=== PATIENT | male | born 1950 | race Hispanic/Latino ===

== ENCOUNTER 2016-09-03 14:33 | Inpatient (IN) | payer MEDICARE ==
--- NOTE | 2016-09-03 14:55 | ED PDOC ---
Arrival/HPI - General Chief Complaint: Pain, Chronic Time Seen by Provider: 09/03/16 14:47 - History of Present Illness Narrative History of Present Illness (Text): 09/03/16 15:43 66 y/o M w/ PMHx of venous stasis and HTN presents to the ED c/o B/L LE pain. Pt is currently being treated by Dr. Rahman for B/L venous stasis and cellulitis; however, pt was unable to make his last appointment on 08/28/16. Pt was last seen on 08/21/16. At that visit legs were wrapped and compression stockings were applied. Pt has not changed the dressings or stockings since placement. Pt admits to taking Tylenol 1300mg x2 with no relief. Pt has a prescription for Tramadol but is almost out of medication. Pt admits to some worsening LE numbness, erythema, and swelling. Pt denies F/C, CP, SOB, N/V, D/C. (Akosua De Luna) Past Medical History - Provider Review Nursing Documentation Reviewed: Yes - Infectious Disease Hx of Infectious Diseases: None - Tetanus Immunization Tetanus Immunization: Unknown - Cardiac Hx Cardiac Disorders: Yes Hx Hypertension: Yes - Pulmonary Hx Respiratory Disorders: No - Neurological Hx Neurological Disorder: No - HEENT Hx HEENT Disorder: No - Renal Hx Renal Disorder: No - Endocrine/Metabolic Hx Endocrine Disorders: No - Hematological/Oncological Hx Blood Disorders: No - Integumentary Hx Basal Cell Carcinoma: Yes (on his back) Other/Comment: actinic keratosis - Musculoskeletal/Rheumatological Hx Musculoskeletal Disorders: Yes Hx Arthritis: Yes Hx Falls: No - Gastrointestinal Hx Gastrointestinal Disorders: No - Genitourinary/Gynecological Hx Genitourinary Disorders: No - Psychiatric Hx Psychophysiologic Disorder: No Hx Substance Use: No - Anesthesia Hx Anesthesia: No Hx Anesthesia Reactions: No Hx Malignant Hyperthermia: No Family/Social History - Physician Review Nursing Documentation Reviewed: Yes Family/Social History: No Known Family HX Smoking Status: Former Smoker Hx Alcohol Use: No Hx Substance Use: No Allergies/Home Meds Allergies/Adverse Reactions: Allergies No Known Allergies Allergy (Verified 09/03/16 14:42) Home Medications: Home Meds Medication Instructions Recorded Confirmed Potassium Chloride [Klor-Con] 1 tab PO DAILY 03/24/15 09/03/16 Torsemide [Demadex] 20 mg PO DAILY 03/24/15 09/03/16 Tramadol Hydrochloride [Tramadol] 1 tab PO PRN PRN 03/24/15 09/03/16 Review of Systems - Physician Review All systems were reviewed & negative as marked: Yes Physical Exam Vital Signs Reviewed: Yes Temperature: Afebrile Blood Pressure: Normal Pulse: Regular Respiratory Rate: Normal Appearance: Positive for: Non-Toxic, Comfortable Pain Distress: Mild Mental Status: Positive for: Alert and Oriented X 3 - Systems Exam Head: Present: Atraumatic, Normocephalic Pupils: Present: PERRL Extroacular Muscles: Present: EOMI Conjunctiva: Present: Normal Mouth: Present: Moist Mucous Membranes Respiratory/Chest: Present: Clear to Auscultation, Good Air Exchange. No: Respiratory Distress, Accessory Muscle Use Cardiovascular: Present: Regular Rate and Rhythm, Normal S1, S2. No: Murmurs Abdomen: Present: Normal Bowel Sounds. No: Tenderness, Distention, Peritoneal Signs Upper Extremity: Present: Normal Inspection Lower Extremity: Present: Edema (2+ pitting edema RLE), Other (venous stasis B/ L w/ ulcerations on B/L medial and lateral maleoli and shins.) Neurological: Present: GCS=15, Speech Normal Skin: Present: Warm, Dry Psychiatric: Present: Alert, Oriented x 3, Normal Affect, Normal Mood Vital Signs Temp Pulse Resp BP Pulse Ox 09/03/16 14:46 98.2 F 88 19 139/79 97 Medical Decision Making - RAD Interpretation Coating Line Worker: Radiologist (Venous doppler negative for DVT) ED Course and Treatment: Patient seen and examined with resident Came up with treatment and disposition plan with resident (Musa Torres) 09/03/16 15:51 66 y/o M w/ venous stasis and cellulitis - Morphine - Vancomycin - Labs - Blood Cx - RLE venous doppler - reassess and dispo 09/03/16 17:05 LE dressings changed Pain improved. Pt down to U/S for venous doppler Spoke to Dr. Villanueva who accepts the pt to his service - requested repeat VBG 3hrs after the 1st draw. Discussed admission with the pt who is agreeable. (Akosua De Luna) - Lab Interpretations Lab Results: 09/03/16 15:50 09/03/16 15:50 Lab Results 09/03/16 15:50: Sodium 141, Chloride 101, Potassium 4.0, Carbon Dioxide 31, Anion Gap 13, BUN 14, Creatinine 0.9, Est GFR ( Amer) > 60, Est GFR (Non- Af Amer) > 60, Random Glucose 85, Calcium 9.3, Total Bilirubin 0.5, AST 35, ALT 29, Alkaline Phosphatase 75, Total Protein 7.2, Albumin 3.9, Globulin 3.3, Albumin/Globulin Ratio 1.2 09/03/16 15:50: pO2 39, VBG pH 7.26 L, VBG pCO2 69.0 H*, VBG HCO3 31.0 H, VBG Total CO2 33.1 H, VBG O2 Sat (Calc) 70.3 H, VBG Base Excess 1.9, VBG Potassium 4.0, Sodium 137.0, Chloride 103.0, Glucose 88, Lactate 2.8 H, FiO2 21.0, Venous Blood Potassium 4.0 09/03/16 15:50: WBC 8.4 D, RBC 4.31, Hgb 13.8 L, Hct 40.5 L, MCV 94.0, MCH 32.0 , MCHC 34.1, RDW 12.2, Plt Count 243, MPV 10.8, Gran % 65.7, Lymph % (Auto) 24.3 , [place] % (Auto) 8.1 H, Eos % (Auto) 1.7, Baso % (Auto) 0.2, Gran # 5.51, Lymph # 2.0, [place] # 0.7 H, Eos # 0.1, Baso # 0.02 - RAD Interpretation Radiology Orders: 09/03/16 15:54 DUPLEX LOWER EXTRM VEIN BILAT [US] Stat - Medication Orders Current Medication Orders: Discontinued Medications Sodium Chloride (Sodium Chloride 0.9%) 1,000 mls @ 999 mls/hr IV .Q1H1M STA Stop: 09/03/16 16:29 Last Admin: 09/03/16 16:15 Dose: 999 mls/hr Vancomycin HCl (Vancomycin 1gm) 1 gm in 250 mls @ 167 mls/hr IVPB STAT STA PRN Reason: Protocol Stop: 09/03/16 16:58 Last Admin: 09/03/16 16:15 Dose: 167 mls/hr Morphine Sulfate (Morphine) 4 mg IVP STAT STA Stop: 09/03/16 15:30 Last Admin: 09/03/16 16:14 Dose: 4 mg Disposition/Present on Arrival - Present on Arrival Any Indicators Present on Arrival: No History of DVT/PE: No History of Uncontrolled Diabetes: No Urinary Catheter: No History of Decub. Ulcer: No History Surgical Site Infection Following: None - Disposition Have Diagnosis and Disposition been Completed?: Yes Disposition Time: 17:08 Patient Plan: Admission - Disposition Diagnosis: Cellulitis, leg, Cellulitis, Venous stasis dermatitis of both lower extremities Disposition: HOSPITALIZED Patient Problems: Current Active Problems Problem Status Onset Cellulitis Acute Cellulitis, leg Acute Venous stasis dermatitis of both lower extremities Acute Condition: STABLE
[2016-09-03] MEDS ORDERED: Morphine 4 mg/ml ISec IVP STA (15:29)
[2016-09-03] MEDS ORDERED: Sodium Chloride 0.9% 1,000 ML IV STA (15:29)
[2016-09-03] MEDS ORDERED: Vancomycin 1gm in NS 250ml 1 GM/250 ML BAG IVPB STA (15:29)
[2016-09-03 16:08] LABS: ADD MANUAL DIFF? NO
[2016-09-03 16:14] LABS: BASO # 0.02 K/mm3 (0.0-2.0); BASO % 0.2 % (0.0-3.0); EOS # 0.1 (0.0-0.7); EOS % 1.7 % (1.5-5.0); GRAN # 5.51 (1.4-6.5); GRAN % 65.7 % (50.0-68.0); HEMATOCRIT 40.5 % (42.0-52.0); LYMPH % 24.3 % (22.0-35.0); MEAN CORPUSCULAR HGB CONC 34.1 g/dl (31.0-37.0); MEAN PLATELET VOLUME 10.8 fl (7.0-11.0); MONO # 0.7 (0.1-0.6); MONO % 8.1 % (1.0-6.0); PLATELET COUNT 243 10^3/uL (120.0-450.0); RED CELL DISTRIBUTION WIDTH 12.2 % (11.5-14.5); WHITE BLOOD COUNT 8.4 10^3/ul (4.5-11.0)
[2016-09-03 16:22] LABS: VENOUS BLOOD GAS BASE EXCESS 1.9 mmol/L (0.0-2.0); VENOUS BLOOD PH 7.26 (7.32-7.43)
[2016-09-03 16:28] LABS: ALB/GLOB RATIO 1.2 (1.1-1.8); ALKALINE PHOSPHATASE 75 U/L (38-133); ALT/SGPT 29 U/L (7-56); AST/SGOT 35 U/L (15-59); BILIRUBIN,TOTAL 0.5 mg/dL (0.2-1.3); BLOOD UREA NITROGEN 14 mg/dL (7-21); CALCIUM 9.3 mg/dL (8.4-10.5); CARBON DIOXIDE 31 mmol/L (21-33); CHLORIDE 101 mmol/L (98-107); GFR AFRICAN-AMERICAN > 60; GLUCOSE,RANDOM 85 mg/dL (70-110); SODIUM 141 mmol/L (132-148); TOTAL PROTEIN 7.2 g/dL (5.8-8.3)
[2016-09-03] MEDS ORDERED: Morphine 2 mg/ml ISec IVP PRN (17:53)
[2016-09-03] MEDS: Sodium Chloride 0.9% 1,000 ML IV SCH (18:28)
[2016-09-03 19:33] LABS: VENOUS BLOOD GAS BASE EXCESS 6.6 mmol/L (0.0-2.0); VENOUS BLOOD PH 7.44 (7.32-7.43)
[2016-09-03 19:40] VITALS: BMI 39.6
[2016-09-04] MEDS: Sodium Chloride 0.9% 1,000 ML IV SCH (06:49)
--- NOTE | 2016-09-04 08:27 | HP ---
I know the patient very well from knowing his family. I have known him for years. He comes in with bilateral venous stasis and cellulitis of the lower extremity. The legs were wrapped with compressio n stockings and he is going to get a medication. He has got erythema and swelling of the lower extre mities and he has got bad cellulitis. PAST MEDICAL HISTORY: Hypertension, right hip osteoarthritis. He has got a basal cell carcinoma, wh ich is very large on his back, a lot of actinic keratosis. He has arthritis and severe osteoarthriti s of the right hip. He probably needs a total hip replacement. FAMILY HISTORY: There is hypertension in the family. He is a former smoker, no alcohol, no drugs. ALLERGIES: No known drug allergies. He is on potassium, Demadex and tramadol. No acute vision or hearing changes, no sore throat. No neck issues. No chest pain, no shortness of breath, no coughing, no palpitations, no abdominal pain. He is in pain from the right hip. Both his feet are red and inflamed. He is alert and oriented x 3. PHYSICAL EXAMINATION: VITAL SIGNS: Temp 98.2, 88 pulse, 19 respiratory rate, 139/79 blood pressure, 97% O2 sat on room air . HEENT: His head is atraumatic, normocephalic. Extraocular muscles are intact. Pupils equally react talisha to light. Throat is moist. NECK: Supple. HEART: Regular rate. Normal S1, S2. LUNGS: Decreased breath sounds, but clear to auscultation bilaterally. ABDOMEN: Soft, nontender, positive bowel sounds. No guarding, no rebound, no CVA tenderness. EXTREMITIES: He has got +1-2 pitting edema right leg and left leg and both have venous stasis and ce llulitis and ulcers of both lower extremities. He has a large 10 cm x 10 cm basal cell carcinoma on the back, which I have been encouraging him to see a doctor for for many, many months. He just refus es. He also has a severe right hip osteoarthritis, needs a total hip replacement and has not gone to get that taken care of either. NEUROLOGIC: GCS 15. Speech is normal. Cranial nerves II-XII grossly intact. Alert and oriented x 3. LYMPHATIC: Thyroid midline. No palpable appreciative lymphadenopathy. There are venous Dopplers ordered. He is currently on Demadex, morphine, Norvasc, IV fluids, Tylenol, and vancomycin IV. He has a 141 sodium, potassium 4, BUN is 14, creatinine 0.9, GFR is greater than 60, sugar is 85, rey cium is 9.3, total bili is 0.5, AST is 35, ALT is 29, alk phos 75, total protein 7.2, albumin is 3.9, globulin 3.3. White count 8.4, 13.8 hemoglobin, 40.5 hematocrit with 243 platelets. Venous Doppler s are pending. He is going to have consults with infectious disease, podiatry, and surgery for his back cancer, whic h could be surgically done. If we get time, we will do the right hip with orthopedics, but that is lynn valdivia to probably be outpatient. I am concerned about him with the cellulitis. I called in infectiou s disease for IV antibiotics. We will check his labs tomorrow, order physical therapy. Stephen Vazquez DO cc: [id number] TT: 09/04/2016 08:26:42 en
[2016-09-04 08:32] LABS: ADD MANUAL DIFF? NO
[2016-09-04 08:44] LABS: BASO # 0.04 K/mm3 (0.0-2.0); BASO % 0.6 % (0.0-3.0); EOS # 0.3 (0.0-0.7); EOS % 3.8 % (1.5-5.0); GRAN # 4.01 (1.4-6.5); GRAN % 57.1 % (50.0-68.0); HEMATOCRIT 39.6 % (42.0-52.0); LYMPH # 2.2 (1.2-3.4); LYMPH % 31.5 % (22.0-35.0); MEAN CELL VOLUME 93.6 fL (80.0-105.0); MEAN CORPUSCULAR HEMOGLOBIN 31.7 pg (25.0-35.0); MEAN CORPUSCULAR HGB CONC 33.8 g/dl (31.0-37.0); MEAN PLATELET VOLUME 10.5 fl (7.0-11.0); MONO # 0.5 (0.1-0.6); PLATELET COUNT 220 10^3/uL (120.0-450.0); RED CELL DISTRIBUTION WIDTH 12.3 % (11.5-14.5)
[2016-09-04 08:57] LABS: ALB/GLOB RATIO 1.2 (1.1-1.8); ALKALINE PHOSPHATASE 77 U/L (38-133); ALT/SGPT 33 U/L (7-56); AST/SGOT 26 U/L (15-59); BILIRUBIN,TOTAL 0.8 mg/dL (0.2-1.3); BLOOD UREA NITROGEN 9 mg/dL (7-21); CALCIUM 8.9 mg/dL (8.4-10.5); CARBON DIOXIDE 28 mmol/L (21-33); CHLORIDE 106 mmol/L (98-107); GFR AFRICAN-AMERICAN > 60; GLUCOSE,RANDOM 116 mg/dL (70-110); MAGNESIUM 2.1 mg/dL (1.7-2.2); PHOSPHOROUS 2.4 mg/dL (2.5-4.5); POTASSIUM 4.6 mmol/L (3.6-5.0); SODIUM 140 mmol/L (132-148); TOTAL PROTEIN 6.6 g/dL (5.8-8.3)
[2016-09-04] MEDS ORDERED: Vancomycin 1gm in NS 250ml 1 GM/250 ML BAG IVPB SCH (10:00)
[2016-09-04] MEDS: cefTRIAXone 1 gm 1 GM/100 ML BAG IVPB SCH (10:11)
[2016-09-04] MEDS: Vancomycin 1gm in NS 250ml 1 GM/250 ML BAG IVPB SCH ×2 (10:12→17:53)
--- NOTE | 2016-09-04 11:33 | CP.PCM.CON ---
History of Present Illness - History of Present Illness History of Present Illness: Mckay Chappell D.O. PGY-1, General Surgery Consultation Note: Dr. Bam [place] 66 year old male admitted with BL foot cellulitis, surgical consultation was placed for back basal cell carcinoma. Patient was seen and examined at bedside with attending physician and surgical team. Patient states that he has had this for a very long time and that, as far as he's noticed, it's been this size for about 1 year. Patient did have it biopsied and was told that it was basal cell carcinoma. Patient does not have any discomfort, drainage, or otherwise from the lesion but was told that he should have it removed because of it's size and known biopsy results. Review of Systems - Review of Systems All systems: reviewed and no additional remarkable complaints except - Integumentary Integumentary: Lesions Past Patient History - Infectious Disease Hx of Infectious Diseases: None - Tetanus Immunizations Tetanus Immunization: Unknown - Past Social History Smoking Status: Former Smoker - CARDIAC Hx Cardiac Disorders: Yes Hx Hypertension: Yes - PULMONARY Hx Respiratory Disorders: No - NEUROLOGICAL Hx Neurological Disorder: No - HEENT Hx HEENT Problems: No - RENAL Hx Chronic Kidney Disease: No - ENDOCRINE/METABOLIC Hx Endocrine Disorders: No - HEMATOLOGICAL/ONCOLOGICAL Hx Blood Disorders: No - INTEGUMENTARY 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) Other/Comment: actinic keratosis - MUSCULOSKELETAL/RHEUMATOLOGICAL Hx Falls: No - GASTROINTESTINAL Hx Gastrointestinal Disorders: No - GENITOURINARY/GYNECOLOGICAL Hx Genitourinary Disorders: No - PSYCHIATRIC Hx Psychophysiologic Disorder: No Hx Substance Use: No - SURGICAL HISTORY Hx Surgeries: No - ANESTHESIA Hx Anesthesia: No Hx Anesthesia Reactions: No Hx Malignant Hyperthermia: No Meds Allergies/Adverse Reactions: Allergies Allergy/AdvReac Type Severity Reaction Status Date / Time No Known Allergies Allergy Verified 09/03/16 14:42 - Medications Medications: Current Medications Acetaminophen (Tylenol 325mg Tab) 650 mg PO Q4 PRN PRN Reason: Fever >100.4 F Last Admin: 09/04/16 08:37 Dose: 650 mg Amlodipine Besylate (Norvasc) 5 mg PO DAILY [facility] Last Admin: 09/04/16 10:10 Dose: 5 mg Sodium Chloride (Sodium Chloride 0.9%) 1,000 mls @ 100 mls/hr IV .Q10H [facility] Last Admin: 09/04/16 06:49 Dose: 100 mls/hr Vancomycin HCl (Vancomycin 1gm) 1 gm in 250 mls @ 167 mls/hr IVPB BID [facility] PRN Reason: Protocol Last Admin: 09/04/16 10:12 Dose: 167 mls/hr Ceftriaxone Sodium (Rocephin 1 Gram Ivpb) 1 gm in 100 mls @ 100 mls/hr IVPB DAILY [facility] PRN Reason: Protocol Last Admin: 09/04/16 10:11 Dose: 100 mls/hr Morphine Sulfate (Morphine) 2 mg IVP Q6 PRN PRN Reason: Pain, moderate (4-7) Torsemide (Demadex) 20 mg PO DAILY [facility] Last Admin: 09/04/16 10:12 Dose: 20 mg Physical Exam - Constitutional Appears: Well, Non-toxic, No Acute Distress - Head Exam Head Exam: ATRAUMATIC, NORMOCEPHALIC - Eye Exam Eye Exam: EOMI, Normal appearance - ENT Exam ENT Exam: Mucous Membranes Moist - Respiratory Exam Respiratory Exam: absent: Accessory Muscle Use, Respiratory Distress - Back Exam Additional comments: ~2x1cm oval shaped lesion in mid thoracic area, not elevated but appears somewhat sunken in, irregular borders, some midline erythema but not surrounding , no drainage or expressible drainage - Neurological Exam Neurological exam: Alert, Oriented x3 - Skin Skin Exam: Dry, Warm Results - Vital Signs Recent Vital Signs: Last Vital Signs Temp 98.4 F 09/04/16 07:30 Pulse 64 09/04/16 10:10 Resp 20 09/04/16 07:30 BP 124/72 09/04/16 10:10 Pulse Ox 98 09/04/16 07:30 - Labs Result Diagrams: 09/04/16 08:15 09/04/16 08:15 Labs: Laboratory Results - last 24 hr 09/03/16 09/04/16 09/04/16 19:20 08:14 08:15 WBC 7.0 RBC 4.23 Hgb 13.4 L Hct 39.6 L MCV 93.6 MCH 31.7 MCHC 33.8 RDW 12.3 Plt Count 220 MPV 10.5 Gran % 57.1 Lymph % (Auto) 31.5 [place] % (Auto) 7.0 H Eos % (Auto) 3.8 Baso % (Auto) 0.6 Gran # 4.01 Lymph # 2.2 [place] # 0.5 Eos # 0.3 Baso # 0.04 ESR 22 H pO2 17 L VBG pH 7.44 H VBG pCO2 47.0 VBG HCO3 31.9 H VBG Total CO2 33.3 H VBG O2 Sat (Calc) 29.8 L VBG Base Excess 6.6 H VBG Potassium 5.1 Sodium 138.0 Chloride 106.0 Glucose 97 Lactate 0.8 FiO2 21.0 Potassium Carbon Dioxide Anion Gap BUN Creatinine Est GFR ( Amer) Est GFR (Non-Af Amer) Random Glucose Calcium Phosphorus Magnesium Total Bilirubin AST ALT Alkaline Phosphatase Total Protein Albumin Globulin Albumin/Globulin Ratio Venous Blood Potassium 5.1 09/04/16 08:15 WBC RBC Hgb Hct MCV MCH MCHC RDW Plt Count MPV Gran % Lymph % (Auto) [place] % (Auto) Eos % (Auto) Baso % (Auto) Gran # Lymph # [place] # Eos # Baso # ESR pO2 VBG pH VBG pCO2 VBG HCO3 VBG Total CO2 VBG O2 Sat (Calc) VBG Base Excess VBG Potassium Sodium 140 Chloride 106 Glucose Lactate FiO2 Potassium 4.6 Carbon Dioxide 28 Anion Gap 11 BUN 9 Creatinine 0.7 Est GFR ( Amer) > 60 Est GFR (Non-Af Amer) > 60 Random Glucose 116 H Calcium 8.9 Phosphorus 2.4 L Magnesium 2.1 Total Bilirubin 0.8 AST 26 ALT 33 Alkaline Phosphatase 77 Total Protein 6.6 Albumin 3.5 Globulin 3.0 Albumin/Globulin Ratio 1.2 Venous Blood Potassium Assessment & Plan - Assessment and Plan (Free Text) Assessment: 66 year old male admitted with BL foot cellulitis, surgical consultation was placed for back basal cell carcinoma. Plan: Will follow, lesion does need resection, might perform while during this admission Management per primary team Patient was seen and case was discussed with attending physician. Thank you for the pleasure in participating in the care of this patient. - Date & Time Date: 09/04/16 Time: 11:00
--- NOTE | 2016-09-04 13:35 | CP.PCM.CON ---
History of Present Illness - History of Present Illness History of Present Illness: 66 y/o M w/ PMHx of basal cell carcinoma, venous stasis and HTN seen at bedside with attending Dr. Rahman for bilateral leg cellulitis. Patient states that he has moderate pain in his legs. Patient states that he sees Dr. Rahman in the wound care center for the bilateral leg redness and swelling. He dnies any acute events overnight. Patient denies n/f/v/d/c/sob. Review of Systems - Constitutional Constitutional: As Per HPI Past Patient History - Infectious Disease Hx of Infectious Diseases: None - Tetanus Immunizations Tetanus Immunization: Unknown - Past Social History Smoking Status: Former Smoker - CARDIAC Hx Cardiac Disorders: Yes Hx Hypertension: Yes - PULMONARY Hx Respiratory Disorders: No - NEUROLOGICAL Hx Neurological Disorder: No - HEENT Hx HEENT Problems: No - RENAL Hx Chronic Kidney Disease: No - ENDOCRINE/METABOLIC Hx Endocrine Disorders: No - HEMATOLOGICAL/ONCOLOGICAL Hx Blood Disorders: No - INTEGUMENTARY 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) Other/Comment: actinic keratosis - MUSCULOSKELETAL/RHEUMATOLOGICAL Hx Falls: No - GASTROINTESTINAL Hx Gastrointestinal Disorders: No - GENITOURINARY/GYNECOLOGICAL Hx Genitourinary Disorders: No - PSYCHIATRIC Hx Psychophysiologic Disorder: No Hx Substance Use: No - SURGICAL HISTORY Hx Surgeries: No - ANESTHESIA Hx Anesthesia: No Hx Anesthesia Reactions: No Hx Malignant Hyperthermia: No Meds Allergies/Adverse Reactions: Allergies Allergy/AdvReac Type Severity Reaction Status Date / Time No Known Allergies Allergy Verified 09/03/16 14:42 - Medications Medications: Current Medications Acetaminophen (Tylenol 325mg Tab) 650 mg PO Q4 PRN PRN Reason: Fever >100.4 F Last Admin: 09/04/16 08:37 Dose: 650 mg Amlodipine Besylate (Norvasc) 5 mg PO DAILY [facility] Last Admin: 09/04/16 10:10 Dose: 5 mg Sodium Chloride (Sodium Chloride 0.9%) 1,000 mls @ 100 mls/hr IV .Q10H [facility] Last Admin: 09/04/16 06:49 Dose: 100 mls/hr Vancomycin HCl (Vancomycin 1gm) 1 gm in 250 mls @ 167 mls/hr IVPB BID [facility] PRN Reason: Protocol Last Admin: 09/04/16 10:12 Dose: 167 mls/hr Ceftriaxone Sodium (Rocephin 1 Gram Ivpb) 1 gm in 100 mls @ 100 mls/hr IVPB DAILY [facility] PRN Reason: Protocol Last Admin: 09/04/16 10:11 Dose: 100 mls/hr Morphine Sulfate (Morphine) 2 mg IVP Q6 PRN PRN Reason: Pain, moderate (4-7) Torsemide (Demadex) 20 mg PO DAILY [facility] Last Admin: 09/04/16 10:12 Dose: 20 mg Physical Exam - Constitutional Appears: Well, Non-toxic, No Acute Distress - Extremities Exam Additional comments: Vasc: palpable pedal pulses, TG wnl, CFT < 4 sec to all digits neuro: grossly diminished derm: mild edema, diffuse erythema noted to bilateral foot and legs up to midcalf, superficial patchy ulcerations with moderate serous drainage noted from anterior right leg wound, no purulence, no malodor, no undermining, left foot superficial ulceration noted to dorsolateral foot with no drainage, no fluctuance, no malodor, no undermining ortho: pain on palpation of legs b/l - Neurological Exam Neurological exam: Alert, Oriented x3 - Psychiatric Exam Psychiatric exam: Normal Affect, Normal Mood Results - Vital Signs Recent Vital Signs: Last Vital Signs Temp 98.4 F 09/04/16 07:30 Pulse 64 09/04/16 10:10 Resp 20 09/04/16 07:30 BP 124/72 09/04/16 10:10 Pulse Ox 98 09/04/16 07:30 - Labs Result Diagrams: 09/04/16 08:15 09/04/16 08:15 Labs: Laboratory Results - last 24 hr 09/03/16 09/04/16 09/04/16 19:20 08:14 08:15 WBC 7.0 RBC 4.23 Hgb 13.4 L Hct 39.6 L MCV 93.6 MCH 31.7 MCHC 33.8 RDW 12.3 Plt Count 220 MPV 10.5 Gran % 57.1 Lymph % (Auto) 31.5 [place] % (Auto) 7.0 H Eos % (Auto) 3.8 Baso % (Auto) 0.6 Gran # 4.01 Lymph # 2.2 [place] # 0.5 Eos # 0.3 Baso # 0.04 ESR 22 H pO2 17 L VBG pH 7.44 H VBG pCO2 47.0 VBG HCO3 31.9 H VBG Total CO2 33.3 H VBG O2 Sat (Calc) 29.8 L VBG Base Excess 6.6 H VBG Potassium 5.1 Sodium 138.0 Chloride 106.0 Glucose 97 Lactate 0.8 FiO2 21.0 Potassium Carbon Dioxide Anion Gap BUN Creatinine Est GFR ( Amer) Est GFR (Non-Af Amer) Random Glucose Calcium Phosphorus Magnesium Total Bilirubin AST ALT Alkaline Phosphatase Total Protein Albumin Globulin Albumin/Globulin Ratio Venous Blood Potassium 5.1 09/04/16 08:15 WBC RBC Hgb Hct MCV MCH MCHC RDW Plt Count MPV Gran % Lymph % (Auto) [place] % (Auto) Eos % (Auto) Baso % (Auto) Gran # Lymph # [place] # Eos # Baso # ESR pO2 VBG pH VBG pCO2 VBG HCO3 VBG Total CO2 VBG O2 Sat (Calc) VBG Base Excess VBG Potassium Sodium 140 Chloride 106 Glucose Lactate FiO2 Potassium 4.6 Carbon Dioxide 28 Anion Gap 11 BUN 9 Creatinine 0.7 Est GFR ( Amer) > 60 Est GFR (Non-Af Amer) > 60 Random Glucose 116 H Calcium 8.9 Phosphorus 2.4 L Magnesium 2.1 Total Bilirubin 0.8 AST 26 ALT 33 Alkaline Phosphatase 77 Total Protein 6.6 Albumin 3.5 Globulin 3.0 Albumin/Globulin Ratio 1.2 Venous Blood Potassium Assessment & Plan - Assessment and Plan (Free Text) Assessment: 66 y/o male seen at bedside for superficial right leg ulceration with bilateral leg cellulitis Plan: patient evaluated and chart reviewed seen at bedside with attending Dr. Rahman labs and vitals reviewed; wbc 7.0 applied xeroform, DSD, ABD, kerlix, MARY to bilateral LE continue IV abx podiatry will continue to follow
--- NOTE | 2016-09-04 17:10 | CP.PCM.CON ---
History of Present Illness - History of Present Illness History of Present Illness: 66 year old male with PMH of HTN, chronic lower leg venous stasis, history of basal cell carcinoma, morbid obesity with BMI 40 came in complaining of pain and swelling of both of his lower extremities for the last 3-4 days. He is being seen by Dr. Rahman at the wound care center for ulcer on his right legs and venous stasis but was not able to follow on August 28. He has had his legs wrapped in Landry bandage. The patient denies fever or chills, no walking on soil barefoot, no soaking his legs in water, no nausea or vomiting, no chest pain, no SOB, no abdominal pain, no sore throat, no cough or colds, no dysphagia, no diarrhea, no dysuria, denies animal contacts. Infectious Diseases consult is requested to further evaluate and manage. Review of Systems - Review of Systems All systems: reviewed and no additional remarkable complaints except (as per HPI ) Past Patient History - Infectious Disease Hx of Infectious Diseases: None - Tetanus Immunizations Tetanus Immunization: Unknown - Past Social History Smoking Status: Former Smoker - CARDIAC Hx Cardiac Disorders: Yes Hx Hypertension: Yes - PULMONARY Hx Respiratory Disorders: No - NEUROLOGICAL Hx Neurological Disorder: No - HEENT Hx HEENT Problems: No - RENAL Hx Chronic Kidney Disease: No - ENDOCRINE/METABOLIC Hx Endocrine Disorders: No - HEMATOLOGICAL/ONCOLOGICAL Hx Blood Disorders: No - INTEGUMENTARY 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) Other/Comment: actinic keratosis - MUSCULOSKELETAL/RHEUMATOLOGICAL Hx Falls: No - GASTROINTESTINAL Hx Gastrointestinal Disorders: No - GENITOURINARY/GYNECOLOGICAL Hx Genitourinary Disorders: No - PSYCHIATRIC Hx Psychophysiologic Disorder: No Hx Substance Use: No - SURGICAL HISTORY Hx Surgeries: No - ANESTHESIA Hx Anesthesia: No Hx Anesthesia Reactions: No Hx Malignant Hyperthermia: No Meds Allergies/Adverse Reactions: Allergies Allergy/AdvReac Type Severity Reaction Status Date / Time No Known Allergies Allergy Verified 09/03/16 14:42 - Medications Medications: Current Medications Acetaminophen (Tylenol 325mg Tab) 650 mg PO Q4 PRN PRN Reason: Fever >100.4 F Last Admin: 09/03/16 23:59 Dose: 650 mg Amlodipine Besylate (Norvasc) 5 mg PO DAILY [facility] Vancomycin HCl (Vancomycin 1gm) 1 gm in 250 mls @ 167 mls/hr IVPB DAILY [facility] PRN Reason: Protocol Sodium Chloride (Sodium Chloride 0.9%) 1,000 mls @ 100 mls/hr IV .Q10H [facility] Last Admin: 09/04/16 06:49 Dose: 100 mls/hr Morphine Sulfate (Morphine) 2 mg IVP Q6 PRN PRN Reason: Pain, moderate (4-7) Torsemide (Demadex) 20 mg PO DAILY [facility] Physical Exam - Constitutional Appears: Non-toxic, No Acute Distress - Head Exam Head Exam: NORMAL INSPECTION - Respiratory Exam Respiratory Exam: Decreased Breath Sounds - Cardiovascular Exam Cardiovascular Exam: +S1, +S2 - GI/Abdominal Exam GI & Abdominal Exam: Soft. absent: Tenderness - Extremities Exam Additional comments: both legs with dressings in place Results - Vital Signs Recent Vital Signs: Last Vital Signs Temp 98.2 F 09/03/16 14:46 Pulse 76 09/03/16 19:33 Resp 18 09/03/16 19:33 BP 145/76 09/03/16 19:33 Pulse Ox 97 09/03/16 18:25 - Labs Result Diagrams: 09/04/16 08:15 09/04/16 08:15 Labs: Laboratory Results - last 24 hr 09/03/16 19:20 pO2 17 L VBG pH 7.44 H VBG pCO2 47.0 VBG HCO3 31.9 H VBG Total CO2 33.3 H VBG O2 Sat (Calc) 29.8 L VBG Base Excess 6.6 H VBG Potassium 5.1 Sodium 138.0 Chloride 106.0 Glucose 97 Lactate 0.8 FiO2 21.0 Venous Blood Potassium 5.1 Assessment & Plan - Assessment and Plan (Free Text) Plan: Assessment bilateral lower extremity cellulitis with associated right leg ulcer, in a patient with chronic venous stasis HTN history of basal cell carcinoma morbid obesity with BMI 40 Plan Started patient on Vancomycin and Rocephin pending wound cx, blood cx, ultrasound of lower extremities reviewed Podiatry evaluation will follow clinically
--- NOTE | 2016-09-04 20:03 | US ---
HISTORY: Leg pain and swelling. Evaluate for DVT PHYSICIAN(S): Cristobal Lua MD. TECHNIQUE: Duplex sonography and color-flow Doppler with graded compression were used to evaluate the deep venous systems of both lower extremities. The tibial veins were not evaluated due to bandages. FINDINGS: The visualized deep venous systems of both lower extremities are sonographically normal and compressible. Normal wave forms and augmentation are seen. There is no sonographic evidence for deep venous thrombosis in the visualized segments of both lower extremities. IMPRESSION: No sonographic evidence for deep venous thrombosis in the visualized segments of both lower extremities. Limited study.
[2016-09-05 07:01] LABS: MEAN CELL VOLUME 92.3 fL (80.0-105.0); MEAN CORPUSCULAR HEMOGLOBIN 31.8 pg (25.0-35.0); MEAN CORPUSCULAR HGB CONC 34.4 g/dl (31.0-37.0); MEAN PLATELET VOLUME 10.5 fl (7.0-11.0); RED CELL DISTRIBUTION WIDTH 12.1 % (11.5-14.5); WHITE BLOOD COUNT 8.7 10^3/ul (4.5-11.0)
[2016-09-05] MEDS: Sodium Chloride 0.9% 1,000 ML IV SCH ×2 (07:07→09:15)
[2016-09-05 07:18] LABS: ALB/GLOB RATIO 1.2 (1.1-1.8); ALKALINE PHOSPHATASE 79 U/L (38-133); ALT/SGPT 30 U/L (7-56); AST/SGOT 26 U/L (15-59); BILIRUBIN,TOTAL 0.6 mg/dL (0.2-1.3); BLOOD UREA NITROGEN 11 mg/dL (7-21); CALCIUM 8.9 mg/dL (8.4-10.5); CARBON DIOXIDE 29 mmol/L (21-33); CHLORIDE 103 mmol/L (98-107); GFR AFRICAN-AMERICAN > 60; GLUCOSE,RANDOM 84 mg/dL (70-110); POTASSIUM 4.2 mmol/L (3.6-5.0); SODIUM 138 mmol/L (132-148); TOTAL PROTEIN 6.8 g/dL (5.8-8.3)
[2016-09-05] MEDS: cefTRIAXone 1 gm 1 GM/100 ML BAG IVPB SCH (09:13)
[2016-09-05] MEDS: Vancomycin 1gm in NS 250ml 1 GM/250 ML BAG IVPB SCH ×2 (09:14→17:10)
--- NOTE | 2016-09-05 09:51 | CP.PCM.PN ---
Subjective - Date & Time of Evaluation Date of Evaluation: 09/05/16 Time of Evaluation: 06:45 - Subjective Subjective: Mckay Chappell D.O. PGY-1, General Surgery Progress Note: Dr. Bam Ding. 66 year old male admitted with BL foot cellulitis, surgical consultation was placed for back basal cell carcinoma. Patient was seen and examined at bedside with surgical team. Patient at this time is doing well, states that he has some generalized discomfort of his legs but otherwise denies any fevers/chills/N/V/D/ C or other complaints. Objective - Vital Signs/Intake and Output Vital Signs (last 24 hours): Temp Pulse Resp BP Pulse Ox 97.9 F 63 18 145/70 96 09/05/16 07:30 09/05/16 07:30 09/05/16 07:30 09/05/16 07:30 09/05/16 07:30 Intake and Output: 09/05/16 09/05/16 06:59 18:59 Intake Total 960 Output Total 3300 Balance -2340 - Medications Medications: Current Medications Acetaminophen (Tylenol 325mg Tab) 650 mg PO Q4 PRN PRN Reason: Fever >100.4 F Last Admin: 09/04/16 17:52 Dose: 650 mg Amlodipine Besylate (Norvasc) 5 mg PO DAILY [facility] Last Admin: 09/05/16 09:15 Dose: 5 mg Vancomycin HCl (Vancomycin 1gm) 1 gm in 250 mls @ 167 mls/hr IVPB BID [facility] PRN Reason: Protocol Last Admin: 09/05/16 09:14 Dose: 167 mls/hr Ceftriaxone Sodium (Rocephin 1 Gram Ivpb) 1 gm in 100 mls @ 100 mls/hr IVPB DAILY [facility] PRN Reason: Protocol Last Admin: 09/05/16 09:13 Dose: 100 mls/hr Sodium Chloride (Sodium Chloride 0.9%) 1,000 mls @ 40 mls/hr IV .Q24H [facility] Last Admin: 09/05/16 09:15 Dose: 40 mls/hr Morphine Sulfate (Morphine) 2 mg IVP Q6 PRN PRN Reason: Pain, moderate (4-7) Torsemide (Demadex) 20 mg PO DAILY [facility] Last Admin: 09/05/16 09:15 Dose: 20 mg - Labs Labs: 09/05/16 06:20 09/05/16 06:20 - Constitutional Appears: Well, Non-toxic, No Acute Distress - Head Exam Head Exam: ATRAUMATIC, NORMOCEPHALIC - Eye Exam Eye Exam: EOMI, Normal appearance - ENT Exam ENT Exam: Mucous Membranes Moist - Respiratory Exam Respiratory Exam: absent: Accessory Muscle Use, Respiratory Distress - Back Exam Additional comments: unchanged ~2x1 in oval shaped lesion in mid thoracic area, somewhat sunken in, irregular borders, some midline erythema but not surrounding , some drainage on optofoam dressing - Neurological Exam Neurological exam: Alert, Oriented x4 - Skin Skin Exam: Dry, Warm Assessment and Plan - Assessment and Plan (Free Text) Assessment: 66 year old male admitted with BL foot cellulitis, surgical consultation was placed for back basal cell carcinoma. Plan: Biopsy proven basal cell carcinoma of the back Requires excision, would first have patient free of infection/cellulitis and can come into clinic for elective excision We will follow peripherally, please recall if necessary Case was discussed with attending physician. Thank you for the pleasure in participating in the care of this patient.
--- NOTE | 2016-09-05 10:25 | PN ---
DATE: 09/05/2016 He slept fairly well last night. He is eating fairly well. His legs burn him a little bit. They ar e wrapped up. He was seen by the surgeon, the roof mechanic and the infectious disease doctor for his c ellulitis, venous stasis and leg ulcers and his skin cancer on his back. PHYSICAL EXAMINATION: VITAL SIGNS: 97.9 temp, 63 pulse, 145/70 blood pressure, 18 respiratory rate, 96% O2 sat on room air . HEENT: His head is atraumatic, normocephalic. Throat is moist. NECK: Supple. HEART: Regular rate. LUNGS: Decreased breath sounds, but clear. ABDOMEN: Soft, nontender. EXTREMITIES: They are both wrapped. There are ulcers and venous stasis and cellulitis. SKIN: Also, on his back, he has got a moderately sized probable basal cell carcinoma. LABORATORY DATA: He has a 138 sodium, potassium 4.2, BUN is 11, creatinine 0.8, GFR is greater than 60, sugar is 84, calcium is 8.9, total bili is 0.6, AST is 26, ALT is 30, alk phos 79. C-reactive pr otein is greater than 15, total protein 6.8, albumin 3.7, globulin is 3.2. He has an 8.7 white count , 14.1 hemoglobin, 41 hematocrit with 256 platelets. MEDICATIONS: He is on his Demadex, morphine, Norvasc, Rocephin, IV fluids which I will drop down fro m 100 mL an hour to 40 and Tylenol and vancomycin IV. Continue with aggressive treatment and care as per infectious disease, surgery and podiatry. I am ho ping, if they do anything to the back, they could do it tomorrow because he might be leaving the day after. We will check his labs tomorrow, try and get him out of bed to chair. The patient has got mu ltiple issues. Stephen Vazquez DO cc: [id number] TT: 09/05/2016 10:24:48 Confirmation # [id number] Dictation # [id number]
--- NOTE | 2016-09-05 12:59 | CP.PCM.PN ---
<Eveline Hemphill - Last Filed: 09/05/16 12:56> Subjective - Date & Time of Evaluation Date of Evaluation: 09/05/16 Time of Evaluation: 12:56 - Subjective Subjective: 66 y/o Male seen at bedside for bilateral leg cellulitis and superficial ulcerations. Patient states that he has moderate pain in his legs. Patient states that he sees Dr. Rahman in the wound care center for the bilateral leg redness and swelling. He dnies any acute events overnight. Patient denies n/f/v/ d/c/sob. Dressing remains clean,dry,intact. patient states that PT came today to evaluate him. Objective - Vital Signs/Intake and Output Vital Signs (last 24 hours): Temp Pulse Resp BP Pulse Ox 97.9 F 63 18 145/70 96 09/05/16 07:30 09/05/16 07:30 09/05/16 07:30 09/05/16 07:30 09/05/16 07:30 Intake and Output: 09/05/16 09/05/16 06:59 18:59 Intake Total 960 Output Total 3300 Balance -2340 - Medications Medications: Current Medications Acetaminophen (Tylenol 325mg Tab) 650 mg PO Q4 PRN PRN Reason: Fever >100.4 F Last Admin: 09/04/16 17:52 Dose: 650 mg Amlodipine Besylate (Norvasc) 5 mg PO DAILY [facility] Last Admin: 09/05/16 09:15 Dose: 5 mg Vancomycin HCl (Vancomycin 1gm) 1 gm in 250 mls @ 167 mls/hr IVPB BID [facility] PRN Reason: Protocol Last Admin: 09/05/16 09:14 Dose: 167 mls/hr Ceftriaxone Sodium (Rocephin 1 Gram Ivpb) 1 gm in 100 mls @ 100 mls/hr IVPB DAILY [facility] PRN Reason: Protocol Last Admin: 09/05/16 09:13 Dose: 100 mls/hr Sodium Chloride (Sodium Chloride 0.9%) 1,000 mls @ 40 mls/hr IV .Q24H [facility] Last Admin: 09/05/16 09:15 Dose: 40 mls/hr Morphine Sulfate (Morphine) 2 mg IVP Q6 PRN PRN Reason: Pain, moderate (4-7) Torsemide (Demadex) 20 mg PO DAILY [facility] Last Admin: 09/05/16 09:15 Dose: 20 mg - Labs Labs: 09/05/16 06:20 09/05/16 06:20 - Constitutional Appears: Well, Non-toxic, No Acute Distress - Extremities Exam Additional comments: Vasc: palpable pedal pulses, TG wnl, CFT < 4 sec to all digits neuro: grossly diminished derm: mild edema, diffuse erythema noted to bilateral foot and legs up to midcalf, superficial patchy ulcerations with moderate serous drainage noted from anterior right leg wound, no purulence, no malodor, no undermining, left foot superficial ulceration noted to dorsolateral and posteromedial foot with no drainage, no fluctuance, no malodor, no undermining ortho: pain on palpation of legs b/l - Neurological Exam Neurological Exam: Alert, Awake, Oriented x3 - Psychiatric Exam Psychiatric exam: Normal Affect, Normal Mood Assessment and Plan - Assessment and Plan (Free Text) Assessment: 66 y/o male seen at bedside for superficial leg ulcerations with bilateral leg cellulitis Plan: patient evaluated and chart reviewed discussed in detail with attending Dr. Venegas labs and vitals reviewed; wbc 8.7 applied xeroform, DSD, ABD, kerlix, MARY to bilateral LE continue IV abx- vanco and rocephin cont. PT patient stable from podiatry standpoint <Beto Venegas - Last Filed: 09/07/16 11:20> Objective - Vital Signs/Intake and Output Vital Signs (last 24 hours): Temp Pulse Resp BP Pulse Ox 97.8 F 62 20 138/86 98 09/06/16 07:30 09/06/16 07:30 09/06/16 07:30 09/06/16 07:30 09/06/16 07:30 - Labs Labs: 09/06/16 06:30 09/06/16 06:30 Attending/Attestation - Attestation I have personally seen and examined this patient.: Yes I have fully participated in the care of the patient.: Yes I have reviewed all pertinent clinical information, including history, physical exam and plan: Yes
--- NOTE | 2016-09-05 15:52 | CON ---
DATE: 09/05/2016 The patient is seen on the floor. There is a very large basal cell on his back that has been biopsie d previously by a plastic surgeon. The patient is admitted for venous stasis ulcers and being treate d by Dr. Rahman. The lesion is large, probably not measured, but 3-4 cm. It is not inflamed and mo bile skin; this can be primarily resected and maybe with a flap. The bottom line is that should be e asily taken care of; this will be done electively. The patient is going to be here for a long time, we can do it now, but in general this should be done electively. Tank Kuhn MD cc: [phone] TT: 09/05/2016 15:51:14 Confirmation # [id number] Dictation # [id number]
[2016-09-05 16:46] VITALS: RESP 20
--- NOTE | 2016-09-05 18:39 | CP.PCM.PN ---
Subjective - Date & Time of Evaluation Date of Evaluation: 09/05/16 Time of Evaluation: 11:00 - Subjective Subjective: Patient is comfortable on a chair, not in distress. Objective - Vital Signs/Intake and Output Vital Signs (last 24 hours): Temp Pulse Resp BP Pulse Ox 98.5 F 85 20 133/100 H 99 09/05/16 16:46 09/05/16 16:46 09/05/16 16:46 09/05/16 16:46 09/05/16 16:46 Intake and Output: 09/05/16 09/05/16 06:59 18:59 Intake Total 960 1650 Output Total 3300 1100 Balance -2340 550 - Medications Medications: Current Medications Acetaminophen (Tylenol 325mg Tab) 650 mg PO Q4 PRN PRN Reason: Fever >100.4 F Last Admin: 09/04/16 17:52 Dose: 650 mg Amlodipine Besylate (Norvasc) 5 mg PO DAILY [facility] Last Admin: 09/05/16 09:15 Dose: 5 mg Vancomycin HCl (Vancomycin 1gm) 1 gm in 250 mls @ 167 mls/hr IVPB BID [facility] PRN Reason: Protocol Last Admin: 09/05/16 17:10 Dose: 167 mls/hr Ceftriaxone Sodium (Rocephin 1 Gram Ivpb) 1 gm in 100 mls @ 100 mls/hr IVPB DAILY [facility] PRN Reason: Protocol Last Admin: 09/05/16 09:13 Dose: 100 mls/hr Sodium Chloride (Sodium Chloride 0.9%) 1,000 mls @ 40 mls/hr IV .Q24H [facility] Last Admin: 09/05/16 09:15 Dose: 40 mls/hr Morphine Sulfate (Morphine) 2 mg IVP Q6 PRN PRN Reason: Pain, moderate (4-7) Torsemide (Demadex) 20 mg PO DAILY [facility] Last Admin: 09/05/16 09:15 Dose: 20 mg - Labs Labs: 09/05/16 06:20 09/05/16 06:20 - Constitutional Appears: Non-toxic, No Acute Distress - Head Exam Head Exam: NORMAL INSPECTION - ENT Exam ENT Exam: Mucous Membranes Moist - Neck Exam Neck Exam: absent: Lymphadenopathy, Meningismus - Respiratory Exam Respiratory Exam: Decreased Breath Sounds - Cardiovascular Exam Cardiovascular Exam: +S1, +S2 - GI/Abdominal Exam GI & Abdominal Exam: Soft. absent: Tenderness Assessment and Plan - Assessment and Plan (Free Text) Plan: Assessment bilateral lower extremity cellulitis with associated right leg ulcer, in a patient with chronic venous stasis HTN history of basal cell carcinoma morbid obesity with BMI 40 Plan continue Vancomycin and Rocephin (day 2) pending wound cx, blood cx, ultrasound of lower extremities reviewed Podiatry evaluation will continue to follow clinically
[2016-09-06 07:12] LABS: HEMATOCRIT 40.2 % (42.0-52.0); MEAN CELL VOLUME 91.8 fL (80.0-105.0); MEAN CORPUSCULAR HEMOGLOBIN 31.5 pg (25.0-35.0); MEAN CORPUSCULAR HGB CONC 34.3 g/dl (31.0-37.0); MEAN PLATELET VOLUME 10.6 fl (7.0-11.0); RED CELL DISTRIBUTION WIDTH 12.1 % (11.5-14.5); WHITE BLOOD COUNT 7.6 10^3/ul (4.5-11.0)
[2016-09-06 07:28] LABS: ALB/GLOB RATIO 1.3 (1.1-1.8); ALKALINE PHOSPHATASE 80 U/L (38-133); ALT/SGPT 30 U/L (7-56); AST/SGOT 26 U/L (15-59); BILIRUBIN,TOTAL 0.4 mg/dL (0.2-1.3); BLOOD UREA NITROGEN 13 mg/dL (7-21); CARBON DIOXIDE 28 mmol/L (21-33); CHLORIDE 103 mmol/L (98-107); GFR AFRICAN-AMERICAN > 60; GLUCOSE,RANDOM 87 mg/dL (70-110); POTASSIUM 4.1 mmol/L (3.6-5.0); SODIUM 137 mmol/L (132-148); TOTAL PROTEIN 6.7 g/dL (5.8-8.3)
[2016-09-06 07:44] VITALS: BP 138/86; PULSE 62; TEMP 97.8; O2SAT 98
--- NOTE | 2016-09-06 09:10 | CP.PCM.PN ---
Subjective - Date & Time of Evaluation Date of Evaluation: 09/06/16 Time of Evaluation: 09:07 - Subjective Subjective: 66 y/o Male seen at bedside with attending for bilateral leg cellulitis and superficial ulcerations. Patient states that he has moderate pain in his legs upon palpation, and he has pain lifting his right leg due to hip pain. He denies any acute events overnight. Patient denies n/f/v/d/c/sob. Dressing remains clean,dry,intact. Objective - Vital Signs/Intake and Output Vital Signs (last 24 hours): Temp Pulse Resp BP Pulse Ox 97.8 F 62 20 138/86 98 09/06/16 07:30 09/06/16 07:30 09/06/16 07:30 09/06/16 07:30 09/06/16 07:30 Intake and Output: 09/06/16 09/06/16 06:59 18:59 Intake Total 1740 Output Total 3120 Balance -1380 - Medications Medications: Current Medications Acetaminophen (Tylenol 325mg Tab) 650 mg PO Q4 PRN PRN Reason: Fever >100.4 F Last Admin: 09/05/16 18:53 Dose: 650 mg Amlodipine Besylate (Norvasc) 5 mg PO DAILY [facility] Last Admin: 09/05/16 09:15 Dose: 5 mg Vancomycin HCl (Vancomycin 1gm) 1 gm in 250 mls @ 167 mls/hr IVPB BID [facility] PRN Reason: Protocol Last Admin: 09/05/16 17:10 Dose: 167 mls/hr Ceftriaxone Sodium (Rocephin 1 Gram Ivpb) 1 gm in 100 mls @ 100 mls/hr IVPB DAILY [facility] PRN Reason: Protocol Last Admin: 09/05/16 09:13 Dose: 100 mls/hr Sodium Chloride (Sodium Chloride 0.9%) 1,000 mls @ 40 mls/hr IV .Q24H [facility] Last Admin: 09/05/16 09:15 Dose: 40 mls/hr Morphine Sulfate (Morphine) 2 mg IVP Q6 PRN PRN Reason: Pain, moderate (4-7) Torsemide (Demadex) 20 mg PO DAILY [facility] Last Admin: 09/05/16 09:15 Dose: 20 mg - Labs Labs: 09/06/16 06:30 09/06/16 06:30 - Constitutional Appears: Well, Non-toxic, No Acute Distress - Extremities Exam Additional comments: Vasc: palpable pedal pulses, TG wnl, CFT < 4 sec to all digits neuro: grossly diminished derm: mild edema, diffuse erythema noted to bilateral foot and legs up to midcalf, superficial patchy ulcerations with moderate serous drainage noted from anterior right leg wound, no purulence, no malodor, no undermining, left foot superficial ulceration noted to dorsolateral and posteromedial foot with no drainage, no fluctuance, no malodor, no undermining ortho: pain on palpation of legs b/l - Neurological Exam Neurological Exam: Alert, Awake, Oriented x3 - Psychiatric Exam Psychiatric exam: Normal Affect, Normal Mood Assessment and Plan - Assessment and Plan (Free Text) Assessment: 66 y/o male seen at bedside for superficial leg ulcerations with bilateral leg cellulitis, improving Plan: patient evaluated and chart reviewed seen at bedside with attending Dr. Rahman labs and vitals reviewed; wbc 7.3 cleansed legs with towelettes applied xeroform, DSD, ABD, kerlix, MARY to bilateral LE continue IV abx- vanco and rocephin cont. PT patient stable from podiatry standpoint patient to follow up at wound care center as outpatient
[2016-09-06] MEDS: cefTRIAXone 1 gm 1 GM/100 ML BAG IVPB SCH (09:19)
[2016-09-06] MEDS: Vancomycin 1gm in NS 250ml 1 GM/250 ML BAG IVPB SCH (09:19)
[2016-09-06] MEDS: Sodium Chloride 0.9% 1,000 ML IV SCH (09:20)
--- NOTE | 2016-09-06 10:12 | DS ---
He is in bed, resting comfortably. He slept fairly well. He is on IV antibiotics for his bilateral lower extremity cellulitis and ulcers. He also has a back cancer and right hip osteoarthritis. He i s comfortable. Slept well, eating well. Pain is there when he moves, but he definitely feels a siddharth le bit better. He is on Demadex, morphine, Norvasc, Rocephin, IV fluids, Tylenol and vancomycin IV. PHYSICAL EXAMINATION: VITAL SIGNS: He has a 97.8 temp, 62 pulse, 138/86 blood pressure, 20 respiratory rate, 98% O2 sat on room air. HEENT: His head is atraumatic, normocephalic. Throat is moist. NECK: Supple. HEART: Regular rate. LUNGS: Decreased breath sounds bilaterally but clear. ABDOMEN: Soft, nontender, positive bowel sounds. EXTREMITIES: Both lower extremities and the feet and ankles to the calves are bandaged up. They are less swollen than the other day. BACK: Has a fairly large 10 cm round cancer which needs procedure by Dr. Kuhn. LABORATORY DATA: He has a 7.6 white count, 13.8 hemoglobin, 40.2 hematocrit with 266 platelets. Sod ium 137, potassium 4.1, BUN 13, creatinine 0.9, GFR is greater than 60, sugar is 87, calcium is 9. T otal bili is 0.4, AST is 26, ALT is 30, alk phos is 80, total protein 6.7. He is being seen by surgery, podiatry and infectious disease. He has bilateral lower extremity cellulitis, right leg ulcer, chronic venous stasis, hypertension, ba kayode cell carcinoma. Hopefully we can discharge him to TCU today for further treatment and IV antibiotics, skin care of th e feet and probably surgery of the basal cell. Stephen Vazquez DO cc: [id number] TT: 09/06/2016 10:12:10 ri
--- NOTE | 2016-09-06 16:40 | CP.PCM.PN ---
Subjective - Date & Time of Evaluation Date of Evaluation: 09/06/16 Time of Evaluation: 11:00 - Subjective Subjective: Comfortable on a chair, not in distress, afebrile, less pain in the legs. Objective - Vital Signs/Intake and Output Vital Signs (last 24 hours): Temp Pulse Resp BP Pulse Ox 97.8 F 62 20 138/86 98 09/06/16 07:30 09/06/16 07:30 09/06/16 07:30 09/06/16 07:30 09/06/16 07:30 Intake and Output: 09/06/16 09/06/16 06:59 18:59 Intake Total 1740 Output Total 3120 Balance -1380 - Medications Medications: Current Medications Acetaminophen (Tylenol 325mg Tab) 650 mg PO Q4 PRN PRN Reason: Fever >100.4 F Last Admin: 09/05/16 18:53 Dose: 650 mg Amlodipine Besylate (Norvasc) 5 mg PO DAILY [facility] Last Admin: 09/05/16 09:15 Dose: 5 mg Vancomycin HCl (Vancomycin 1gm) 1 gm in 250 mls @ 167 mls/hr IVPB BID [facility] PRN Reason: Protocol Last Admin: 09/05/16 17:10 Dose: 167 mls/hr Ceftriaxone Sodium (Rocephin 1 Gram Ivpb) 1 gm in 100 mls @ 100 mls/hr IVPB DAILY [facility] PRN Reason: Protocol Last Admin: 09/05/16 09:13 Dose: 100 mls/hr Sodium Chloride (Sodium Chloride 0.9%) 1,000 mls @ 40 mls/hr IV .Q24H [facility] Last Admin: 09/05/16 09:15 Dose: 40 mls/hr Morphine Sulfate (Morphine) 2 mg IVP Q6 PRN PRN Reason: Pain, moderate (4-7) Torsemide (Demadex) 20 mg PO DAILY [facility] Last Admin: 09/05/16 09:15 Dose: 20 mg - Labs Labs: 09/06/16 06:30 09/06/16 06:30 - Constitutional Appears: Non-toxic, No Acute Distress - Head Exam Head Exam: NORMAL INSPECTION - Neck Exam Neck Exam: absent: Meningismus - Respiratory Exam Respiratory Exam: Decreased Breath Sounds - Cardiovascular Exam Cardiovascular Exam: +S1, +S2 - GI/Abdominal Exam GI & Abdominal Exam: Soft. absent: Tenderness - Extremities Exam Additional comments: both legs with bandages in place Assessment and Plan - Assessment and Plan (Free Text) Plan: Assessment bilateral lower extremity cellulitis with associated right leg ulcer, in a patient with chronic venous stasis HTN history of basal cell carcinoma morbid obesity with BMI 40 Plan continue Vancomycin and Rocephin (day 3) pending final wound cx results; blood cx are negative, ultrasound of lower extremities does not show DVT reviewed Podiatry evaluation
== END 2016-09-06 12:27 | DRG 300 ==
LOC: ED 14:33 → ERH 17:02 → 5RNO 18:39
PROVIDERS: ADMIT Family Medicine; ATTEND Family Medicine
DX: I87.2 Venous insufficiency (chronic) (peripheral) (principal); L03.115 Cellulitis of right lower limb; Z68.41 Body mass index [BMI] 40.0-44.9, adult; L03.116 Cellulitis of left lower limb; E66.01 Morbid (severe) obesity due to excess calories; I10 Essential (primary) hypertension; L97.919 Non-pressure chronic ulcer of unspecified part of right lower leg with unspecified severity; C44.519 Basal cell carcinoma of skin of other part of trunk; I87.8 Other specified disorders of veins; M16.11 Unilateral primary osteoarthritis, right hip; Z82.49 Family history of ischemic heart disease and other diseases of the circulatory system; Z87.891 Personal history of nicotine dependence; L57.0 Actinic keratosis; R40.2411 Glasgow coma scale score 13-15, in the field [EMT or ambulance]; L97.529 Non-pressure chronic ulcer of other part of left foot with unspecified severity

== ENCOUNTER 2016-09-06 12:29 | Inpatient (IN) | payer OTHER ==
[2016-09-06 13:25] VITALS: BMI 39.2
[2016-09-06] MEDS ORDERED: Morphine 2 mg/ml ISec IVP PRN (13:40)
--- NOTE | 2016-09-06 16:23 | CP.PCM.CON ---
History of Present Illness - History of Present Illness History of Present Illness: General Surgery Consult Re: Back mass HPI: 66M being treated for BL foot cellulitis, surgery consulted for back basal cell carcinoma. Pt has had this for a long time and it has been this size for about 1 year. Biopsy showed basal cell carcinoma and he was told to get it removed, but he postponed seeing anyone about it. Denies pain, discomfort, or drainage from the lesion. PMH: HTN, actinic keratosis, arthritis PSH: Denies SH: Former smoker All: NKDA Meds: See MAR Review of Systems - Review of Systems All systems: reviewed and no additional remarkable complaints except (as per HPI ) Past Patient History - Infectious Disease Hx of Infectious Diseases: None - Tetanus Immunizations Tetanus Immunization: Unknown - Past Social History Smoking Status: Former Smoker - CARDIAC Hx Cardiac Disorders: Yes Hx Hypertension: Yes - PULMONARY Hx Respiratory Disorders: No - NEUROLOGICAL Hx Neurological Disorder: No - HEENT Hx HEENT Problems: No - RENAL Hx Chronic Kidney Disease: No - ENDOCRINE/METABOLIC Hx Endocrine Disorders: No - HEMATOLOGICAL/ONCOLOGICAL Hx Blood Disorders: No - INTEGUMENTARY 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) Other/Comment: actinic keratosis - MUSCULOSKELETAL/RHEUMATOLOGICAL Hx Falls: No - GASTROINTESTINAL Hx Gastrointestinal Disorders: No - GENITOURINARY/GYNECOLOGICAL Hx Genitourinary Disorders: No - PSYCHIATRIC Hx Psychophysiologic Disorder: No Hx Substance Use: No - SURGICAL HISTORY Hx Surgeries: No - ANESTHESIA Hx Anesthesia: No Hx Anesthesia Reactions: No Hx Malignant Hyperthermia: No Meds Allergies/Adverse Reactions: Allergies Allergy/AdvReac Type Severity Reaction Status Date / Time No Known Allergies Allergy Verified 09/03/16 14:42 - Medications Medications: Current Medications Acetaminophen (Tylenol 325mg Tab) 650 mg PO Q4 PRN; Protocol PRN Reason: Fever >100.4 F Amlodipine Besylate (Norvasc) 5 mg PO DAILY [facility] Ceftriaxone Sodium (Rocephin 1 Gram Ivpb) 1 gm in 100 mls @ 100 mls/hr IVPB 0600 [facility] PRN Reason: Protocol Vancomycin HCl (Vancomycin 1gm) 1 gm in 250 mls @ 167 mls/hr IVPB 0600,1800 [facility] PRN Reason: Protocol Morphine Sulfate (Morphine) 2 mg IVP Q6 PRN PRN Reason: Pain, moderate (4-7) Torsemide (Demadex) 20 mg PO DAILY [facility] Physical Exam - Constitutional Appears: Non-toxic, No Acute Distress - Head Exam Head Exam: ATRAUMATIC, NORMOCEPHALIC - Eye Exam Eye Exam: EOMI. absent: Scleral icterus - ENT Exam ENT Exam: Mucous Membranes Moist Additional comments: trachea midline - Respiratory Exam Respiratory Exam: NORMAL BREATHING PATTERN. absent: Respiratory Distress - Cardiovascular Exam Cardiovascular Exam: Tachycardia, RRR, +S1, +S2 - GI/Abdominal Exam GI & Abdominal Exam: Soft. absent: Distended, Tenderness - Rectal Exam Rectal Exam: Deferred - Extremities Exam Extremities exam: Positive for: pedal edema Additional comments: erythema of B/L LE Dressings placed by podiatry - Back Exam Additional comments: 8cm raised area with ulcer in center - Neurological Exam Neurological exam: Alert, Oriented x3 - Psychiatric Exam Psychiatric exam: Normal Affect, Normal Mood - Skin Skin Exam: Dry, Warm Assessment & Plan - Assessment and Plan (Free Text) Assessment: 66M with basal cell carcinoma of the back Plan: After LE cellulitis is treated, have pt follow up as an outpatient with Dr. Kuhn and schedule the procedure as an outpatient. No surgical intervention at this time D/W Dr. Bam Montalvo PGY3
[2016-09-06] MEDS ORDERED: Pneumococcal 23-Valent Vaccine IM ONE (17:26)
[2016-09-06] MEDS: Vancomycin 1gm in NS 250ml 1 GM/250 ML BAG IVPB SCH (18:20)
[2016-09-07] MEDS: cefTRIAXone 1 gm 1 GM/100 ML BAG IVPB SCH (05:16)
[2016-09-07] MEDS: Vancomycin 1gm in NS 250ml 1 GM/250 ML BAG IVPB SCH ×2 (05:16→18:07)
[2016-09-07 08:18] LABS: HEMATOCRIT 44.8 % (42.0-52.0); MEAN CELL VOLUME 92.2 fL (80.0-105.0); MEAN CORPUSCULAR HEMOGLOBIN 31.5 pg (25.0-35.0); MEAN CORPUSCULAR HGB CONC 34.2 g/dl (31.0-37.0); MEAN PLATELET VOLUME 10.8 fl (7.0-11.0); RED CELL DISTRIBUTION WIDTH 12.3 % (11.5-14.5); WHITE BLOOD COUNT 9.1 10^3/ul (4.5-11.0)
[2016-09-07 08:26] LABS: BLOOD UREA NITROGEN 16 mg/dL (7-21); CALCIUM 9.6 mg/dL (8.4-10.5); CARBON DIOXIDE 25 mmol/L (21-33); CHLORIDE 102 mmol/L (95-110); GFR AFRICAN-AMERICAN > 60; GLUCOSE,RANDOM 93 mg/dL (70-110); POTASSIUM 3.7 mmol/L (3.6-5.0); SODIUM 138 mmol/L (132-148)
--- NOTE | 2016-09-07 09:05 | HP ---
The patient was sent over from the hospital side to the transitional care unit side for further IV antibiotics, also wound care to his back. I am hoping that surgery can do an I and D of this cancer on his back. I have known him for many , many years. He had bilateral lower extremity venous stasis with cellulitis and ulcers, being seen by podiatry and infectious disease. They are getting better. He needs IV antibiotics. He also has a basal cell carcinoma on his back, which I was hoping surgery could take care of that while he is here. PAST MEDICAL HISTORY: He has a history of hypertension, right hip osteoarthritis, for which he probably needs a hip replacement. He has severe arthritis. FAMILY HISTORY: Hypertension. SOCIAL HISTORY: No smoking, no drinking, no drugs. ALLERGIES: No known drug allergies. MEDICATIONS: He was taking tramadol, Demadex, and potassium. He is currently here on Demadex, morphine, Norvasc, Rocephin, Tylenol, and vancomycin. REVIEW OF SYSTEMS: He has no acute vision or hearing changes, no sore throat, no neck issues or pain, no chest pain, no shortness of breath, no coughing, no palpitations, no abdominal pain, no nausea or vomiting. He has got pain in the right hip, which is chronic for his severe arthritis. Both his legs, his feet are bandaged. He had red and inflamed cellulitis and ulcers. He is alert and oriented x 3. PHYSICAL EXAMINATION: VITAL SIGNS: He has a 97.4 temp, 66 pulse, 111/7 blood pressure, 18 respiratory rate, 99% O2 sat on room air. HEENT: Head is atraumatic, normocephalic. Extraocular muscles are intact. Pupils are equally reactive to light and accommodation. Throat is moist. NECK: Supple. HEART: Regular rate. Normal S1, S2. LUNGS: Decreased breath sounds, but clear to auscultation. ABDOMEN: Soft, nontender, positive bowel sounds. No guarding, no rebound, no CVA tenderness. EXTREMITIES: He has +1 pitting edema bilateral lower extremities with venous stasis cellulitis and ulcers. He has a 10 cm x 10 cm basal cell carcinoma on the back in a [place]. I was hoping that he can get that surgically taken care of. He also has severe right hip pain from osteoarthritis. He was told numerous times to get a total hip replacement. He wants to see an orthopedic doctor at this time. I will get Dr. Hyatt to get his opinion. NEUROLOGIC: GCS is 15. Speech is normal. Cranial nerves II-XII are grossly intact, alert and oriented x 3. Thyroid midline. No palpable appreciative lymphadenopathy. LABORATORY DATA: He had lab tests done. He has a 138 sodium, potassium 3.7. BUN is 16. Creatinine is 1. GFR is greater than 60. Sugar is 93. Calcium is 9.6. White count is 9.1, hemoglobin 15.3, hematocrit 44.8, platelets of 321. He is here for bilateral lower extremity cellulitis with ulcers. He has a back cancer on the skin. He has got right hip osteoarthritis. He needs physical therapy to help him walk and get him balanced better. IV antibiotics. He will be seen by infectious disease, podiatry, surgery and orthopedics. Continue with aggressive treatment and care on the patient. Stephen Vazquez DO cc: [id number] TT: 09/07/2016 09:04:46 jn MTDD
--- NOTE | 2016-09-07 19:50 | CON ---
DATE: 09/07/2016 The patient seen in room 304 earlier this morning. CHIEF COMPLAINT: Weakness times several days. HISTORY OF PRESENT ILLNESS: This is a 66-year-old male with past medical history significant for hyp ertension, history of morbid obesity with a body mass index of 40, history of basal cell cancer and w as admitted with bilateral lower extremity cellulitis. The patient states he is doing well. The pat ient has a history of chronic venous stasis. REVIEW OF SYSTEMS: Reveals no fevers, no chills, no nausea, no vomiting. No abdominal pain or diarr hea. PHYSICAL EXAMINATION: VITAL SIGNS: Temperature is 97, blood pressure is 150/70, respiratory rate of 18, heart rate of 101. HEENT: Unremarkable. NECK: Supple. LUNGS: Have decreased breath sounds. HEART: Normal S1, S2. ABDOMEN: Soft. EXTREMITIES: Examination of lower extremity is noted. PAST MEDICAL HISTORY: Significant for hypertension, morbid obesity, chronic venous stasis and arthri tis. PAST SURGICAL HISTORY: Noncontributory. ALLERGIES: The patient has no known allergies. MEDICATIONS: At home include Norvasc, Ultram, potassium and pain medications. On exam the patient is in bed. LABORATORY DATA: Noted. ASSESSMENT AND PLAN: This is a 66-year-old male with hypertension, morbid obesity and chronic venous stasis, bilateral lower extremity cellulitis. On vancomycin and ceftriaxone. Microbiology reveals coag-negative staph and there is also Escherichia coli and corynebacterium which is pansensitive and we will follow closely with you. Today is day #4 of vancomycin and Rocephin. Jefry Wright MD cc: 350 TT: 09/07/2016 19:49:32 Confirmation # [id number] Dictation # [id number] spenser
[2016-09-08] MEDS: cefTRIAXone 1 gm 1 GM/100 ML BAG IVPB SCH (05:10)
[2016-09-08] MEDS: Vancomycin 1gm in NS 250ml 1 GM/250 ML BAG IVPB SCH ×2 (05:10→17:34)
[2016-09-08 07:10] LABS: HEMATOCRIT 37.6 % (42.0-52.0); MEAN CELL VOLUME 91.5 fL (80.0-105.0); MEAN CORPUSCULAR HEMOGLOBIN 30.9 pg (25.0-35.0); MEAN CORPUSCULAR HGB CONC 33.8 g/dl (31.0-37.0); MEAN PLATELET VOLUME 10.6 fl (7.0-11.0); RED CELL DISTRIBUTION WIDTH 12.3 % (11.5-14.5); WHITE BLOOD COUNT 8.2 10^3/ul (4.5-11.0)
[2016-09-08 07:35] LABS: ALB/GLOB RATIO 1.2 (1.1-1.8); ALKALINE PHOSPHATASE 75 U/L (38-133); ALT/SGPT 26 U/L (7-56); AST/SGOT 31 U/L (15-59); BILIRUBIN,TOTAL 0.4 mg/dL (0.2-1.3); BLOOD UREA NITROGEN 20 mg/dL (7-21); CARBON DIOXIDE 25 mmol/L (21-33); CHLORIDE 101 mmol/L (98-107); GFR AFRICAN-AMERICAN > 60; GLUCOSE,RANDOM 92 mg/dL (70-110); POTASSIUM 3.7 mmol/L (3.6-5.0); SODIUM 136 mmol/L (132-148); TOTAL PROTEIN 6.5 g/dL (5.8-8.3)
--- NOTE | 2016-09-08 10:12 | PN ---
DATE: 09/08/2016 He is resting comfortably in bed. He is asking me to let him go out to the [email or web address]. I said he can not go out, he is on IV antibiotics and he is scheduled for a basal cell removal on Sunday and orthop edics has to see him for his right hip. He is on Demadex, morphine, Norvasc, Rocephin, Tylenol, and vancomycin. PHYSICAL EXAMINATION: VITAL SIGNS: Temp 97.5, 72 pulse, 139/78 blood pressure, 18 respiratory rate, 97% O2 sat on room air . HEENT: His head is atraumatic, normocephalic. Throat is moist. NECK: Supple. HEART: Regular rate. LUNGS: Decreased breath sounds, but clear. ABDOMEN: Soft, nontender, positive bowel sounds. EXTREMITIES: Both extremities are wrapped per podiatry for cellulitis and ulcers. BACK: Has got a basal cell carcinoma that will be removed on Sunday with Dr. Kuhn. LABORATORIES: He has 8.2 white count, 12.7 hemoglobin, 37.6 hematocrit with 280 platelets. Sodium 1 36, potassium 3.7, BUN 20, creatinine 1, GFR is greater than 60, sugar is 92, calcium is 9, total irina i is 0.4, AST is 31, ALT is 36, alk phos 75, total protein 6.5, albumin is 3.6. He was seen by infectious disease and by surgery. He has got hypertension, morbid obesity, chronic venous stasis, bilateral lower extremity cellulitis. He is on day #4 of vancomycin and Rocephin. That was yesterday. Surgery is going to plan to do a ba kayode cell removal on Sunday. I am going to get him ready with labs today and we will wait for orthope dics to come in to give us his opinion of his right hip severe osteoarthritis. Stephen Vazquez DO cc: [id number] TT: 09/08/2016 09:37:48 Confirmation # [id number] Dictation # [id number] en
--- NOTE | 2016-09-08 11:04 | PN ---
DATE: 09/08/2016 The patient is in bed, in no acute distress, nontoxic. PHYSICAL EXAMINATION: VITAL SIGNS: Temperature is 97, blood pressure is 130/60, respiratory rate of 18. HEENT: Unremarkable. NECK: Supple. LUNGS: Have decreased breath sounds. HEART: Normal S1, S2. ABDOMEN: Soft, nontender. LABORATORY DATA: Reveals a white count of 8.2, hemoglobin of 12. BUN of 20, creatinine of 1.0. Dylna robiology is noted. ASSESSMENT AND PLAN: This is a 66-year-old male seen earlier in room 304 with hypertension, morbid o besity, chronic venous stasis, bilateral lower extremity cellulitis. Today is day #5 of dulce [address] Shilpi cameron[address] Dr[address] Stephen Vazquez's note is reviewed. Jefry Wright MD cc: [phone] TT: 09/08/2016 11:03:53 Confirmation # [id number] Dictation # [id number] mn
--- NOTE | 2016-09-08 12:11 | CP.PCM.PN ---
<KanchanEveline - Last Filed: 09/08/16 12:07> Subjective - Date & Time of Evaluation Date of Evaluation: 09/08/16 Time of Evaluation: 12:07 - Subjective Subjective: 66 y/o Male seen at bedside for bilateral leg cellulitis and superficial ulcerations. Patient states that he has moderate pain in his legs upon palpation , and he has pain lifting his right leg due to hip pain. He denies any acute events overnight. Patient denies n/f/v/d/c/sob. Dressing remains clean,dry, intact. Objective - Vital Signs/Intake and Output Vital Signs (last 24 hours): Temp Pulse Resp BP Pulse Ox 98.6 F 75 18 139/75 98 09/08/16 11:00 09/08/16 11:00 09/08/16 11:00 09/08/16 11:00 09/08/16 11:00 Intake and Output: 09/08/16 09/08/16 06:59 18:59 Intake Total 500 Balance 500 - Medications Medications: Current Medications Acetaminophen (Tylenol 325mg Tab) 650 mg PO Q4 PRN; Protocol PRN Reason: Fever >100.4 F Last Admin: 09/07/16 18:11 Dose: 650 mg Amlodipine Besylate (Norvasc) 5 mg PO DAILY [facility] Last Admin: 09/08/16 09:48 Dose: 5 mg Ceftriaxone Sodium (Rocephin 1 Gram Ivpb) 1 gm in 100 mls @ 100 mls/hr IVPB 0600 [facility] PRN Reason: Protocol Last Admin: 09/08/16 05:10 Dose: 100 mls/hr Vancomycin HCl (Vancomycin 1gm) 1 gm in 250 mls @ 167 mls/hr IVPB 0600,1800 [facility] PRN Reason: Protocol Last Admin: 09/08/16 05:10 Dose: 167 mls/hr Morphine Sulfate (Morphine) 2 mg IVP Q6 PRN PRN Reason: Pain, moderate (4-7) Torsemide (Demadex) 20 mg PO DAILY [facility] Last Admin: 09/08/16 09:48 Dose: 20 mg - Labs Labs: 09/08/16 06:30 09/08/16 06:30 - Constitutional Appears: Well, Non-toxic, No Acute Distress - Extremities Exam Additional comments: Vasc: palpable pedal pulses, TG wnl, CFT < 4 sec to all digits neuro: grossly diminished derm: mild edema, diffuse erythema noted to bilateral foot and legs up to midcalf, superficial patchy ulcerations with moderate serous drainage noted from anterior right leg wound, no purulence, no malodor, no undermining, left foot superficial ulceration noted to dorsolateral and posteromedial foot with no drainage, no fluctuance, no malodor, no undermining ortho: pain on palpation of legs b/l - Neurological Exam Neurological Exam: Alert, Awake, Oriented x3 - Psychiatric Exam Psychiatric exam: Normal Affect, Normal Mood Assessment and Plan - Assessment and Plan (Free Text) Assessment: 66 y/o male seen at bedside for superficial leg ulcerations with bilateral leg cellulitis, improving Plan: patient evaluated and chart reviewed seen at bedside in TCU discussed in detail with attending Dr. Venegas labs and vitals reviewed; wbc 8.2 cleansed legs with towelettes applied xeroform, DSD, ABD, kerlix, MARY to bilateral LE continue IV abx- vanco and rocephin cont. PT patient stable from podiatry standpoint patient to follow up at wound care center as outpatient <Beto Venegas - Last Filed: 09/08/16 14:55> Objective - Vital Signs/Intake and Output Vital Signs (last 24 hours): Temp Pulse Resp BP Pulse Ox 98.6 F 75 18 139/75 98 09/08/16 11:00 09/08/16 11:00 09/08/16 11:00 09/08/16 11:00 09/08/16 11:00 Intake and Output: 09/08/16 09/08/16 06:59 18:59 Intake Total 500 Balance 500 - Medications Medications: Current Medications Acetaminophen (Tylenol 325mg Tab) 650 mg PO Q4 PRN; Protocol PRN Reason: Fever >100.4 F Last Admin: 09/07/16 18:11 Dose: 650 mg Amlodipine Besylate (Norvasc) 5 mg PO DAILY [facility] Last Admin: 09/08/16 09:48 Dose: 5 mg Ceftriaxone Sodium (Rocephin 1 Gram Ivpb) 1 gm in 100 mls @ 100 mls/hr IVPB 0600 [facility]MI PRN Reason: Protocol Last Admin: 09/08/16 05:10 Dose: 100 mls/hr Vancomycin HCl (Vancomycin 1gm) 1 gm in 250 mls @ 167 mls/hr IVPB 0600,1800 L[facility]MI PRN Reason: Protocol Last Admin: 09/08/16 05:10 Dose: 167 mls/hr Morphine Sulfate (Morphine) 2 mg IVP Q6 PRN PRN Reason: Pain, moderate (4-7) Torsemide (Demadex) 20 mg PO DAILY [facility] Last Admin: 09/08/16 09:48 Dose: 20 mg - Labs Labs: 09/08/16 06:30 09/08/16 06:30 Attending/Attestation - Attestation I have personally seen and examined this patient.: Yes I have fully participated in the care of the patient.: Yes I have reviewed all pertinent clinical information, including history, physical exam and plan: Yes
[2016-09-09] MEDS: Vancomycin 1gm in NS 250ml 1 GM/250 ML BAG IVPB SCH (05:25)
[2016-09-09] MEDS: cefTRIAXone 1 gm 1 GM/100 ML BAG IVPB SCH (05:25)
[2016-09-09 07:24] LABS: HEMATOCRIT 42.3 % (42.0-52.0); MEAN CORPUSCULAR HEMOGLOBIN 31.5 pg (25.0-35.0); MEAN CORPUSCULAR HGB CONC 34.3 g/dl (31.0-37.0); MEAN PLATELET VOLUME 10.1 fl (7.0-11.0); RED CELL DISTRIBUTION WIDTH 12.4 % (11.5-14.5); WHITE BLOOD COUNT 9.6 10^3/ul (4.5-11.0)
[2016-09-09 07:32] LABS: INR 1.08 (0.93-1.08)
[2016-09-09 07:45] LABS: ALB/GLOB RATIO 1.4 (1.1-1.8); ALKALINE PHOSPHATASE 104 U/L (38-133); ALT/SGPT 29 U/L (7-56); AST/SGOT 49 U/L (15-59); BILIRUBIN,TOTAL 0.6 mg/dL (0.2-1.3); BLOOD UREA NITROGEN 15 mg/dL (7-21); CALCIUM 9.6 mg/dL (8.4-10.5); CARBON DIOXIDE 26 mmol/L (21-33); CHLORIDE 101 mmol/L (95-110); GFR AFRICAN-AMERICAN > 60; GLUCOSE,RANDOM 94 mg/dL (70-110); SODIUM 139 mmol/L (132-148); TOTAL PROTEIN 7.6 g/dL (5.8-8.3)
--- NOTE | 2016-09-09 09:21 | CP.PCM.PN ---
<Maggie Wilde - Last Filed: 09/09/16 09:15> Subjective - Date & Time of Evaluation Date of Evaluation: 09/09/16 Time of Evaluation: 08:16 - Subjective Subjective: 66 y/o male patient was seen at bedside for bilateral leg cellulitis and superficial ulcerations. Dressing to Left lower extremity showed mild strikethrough, right dressing clean dry and intact. He denies any acute events overnight. Patient denies n/f/v/d/c/sob. Objective - Vital Signs/Intake and Output Vital Signs (last 24 hours): Temp Pulse Resp BP Pulse Ox 98.1 F 83 20 125/76 95 09/09/16 06:22 09/09/16 06:22 09/09/16 06:22 09/09/16 06:22 09/09/16 06:22 Intake and Output: 09/09/16 09/09/16 06:59 18:59 Intake Total 680 Balance 680 - Medications Medications: Current Medications Acetaminophen (Tylenol 325mg Tab) 650 mg PO Q4 PRN; Protocol PRN Reason: Fever >100.4 F Last Admin: 09/08/16 17:40 Dose: 650 mg Amlodipine Besylate (Norvasc) 5 mg PO DAILY [facility] Last Admin: 09/08/16 09:48 Dose: 5 mg Ceftriaxone Sodium (Rocephin 1 Gram Ivpb) 1 gm in 100 mls @ 100 mls/hr IVPB 0600 [facility] PRN Reason: Protocol Last Admin: 09/09/16 05:25 Dose: 100 mls/hr Vancomycin HCl (Vancomycin 1gm) 1 gm in 250 mls @ 167 mls/hr IVPB 0600,1800 [facility] PRN Reason: Protocol Last Admin: 09/09/16 05:25 Dose: 167 mls/hr Morphine Sulfate (Morphine) 2 mg IVP Q6 PRN PRN Reason: Pain, moderate (4-7) Torsemide (Demadex) 20 mg PO DAILY [facility] Last Admin: 09/08/16 09:48 Dose: 20 mg - Labs Labs: 09/09/16 07:00 09/09/16 07:00 PT 11.7 Seconds (9.9-11.8) 09/09/16 07:00 INR 1.08 (0.93-1.08) 09/09/16 07:00 - Constitutional Appears: Well, Non-toxic, No Acute Distress - Extremities Exam Additional comments: Bilateral lower extremity exam derm: Right: diffuse erythema noted to bilateral foot and legs up to midcalf, superficial patchy ulcerations with moderate serous drainage noted from anterior right leg wound, no purulence, no malodor, no undermining, Left: Superficial ulceration noted to dorsolateral and posteromedial foot with mix of fibrotic and granular base (8:2), mild sero-sanguinous drainage is noted. No purulent discharge noted, no fluctuance, no malodor, no undermining Vasc: Edema, Palpable pedal pulses, TG wnl, CFT < 4 sec to all digits bilaterally neuro: grossly diminished ortho: pain on palpation of legs b/l - Neurological Exam Neurological Exam: Alert, Awake, Oriented x3 - Psychiatric Exam Psychiatric exam: Normal Affect, Normal Mood - Skin Skin Exam: Normal Color, Warm Assessment and Plan - Assessment and Plan (Free Text) Assessment: 66 y/o male seen at bedside for superficial leg ulcerations with bilateral leg cellulitis, improving Plan: patient evaluated and chart reviewed, Rounded with attending Dr. Venegas labs and vitals reviewed; wbc 9.6 cleansed legs with sterile normal saline applied xeroform, DSD, ABD, kerlix, MARY to bilateral LE continue IV abx- vanco and rocephin cont. PT patient stable from podiatry standpoint patient to follow up at wound care center as outpatient <Beto Venegas - Last Filed: 09/11/16 13:02> Objective - Vital Signs/Intake and Output Vital Signs (last 24 hours): Temp Pulse Resp BP Pulse Ox 97.4 F L 66 18 143/74 95 09/11/16 06:00 09/11/16 06:00 09/11/16 06:00 09/11/16 06:00 09/11/16 06:00 - Medications Medications: Current Medications Acetaminophen (Tylenol 325mg Tab) 650 mg PO Q4 PRN; Protocol PRN Reason: Fever >100.4 F Last Admin: 09/10/16 11:26 Dose: 650 mg Amlodipine Besylate (Norvasc) 5 mg PO DAILY [facility] Last Admin: 09/10/16 11:27 Dose: 5 mg Cefpodoxime Proxetil (Vantin) 200 mg PO Q12 [facility] PRN Reason: Protocol Stop: 09/14/16 22:01 Last Admin: 09/10/16 21:42 Dose: 200 mg Morphine Sulfate (Morphine) 2 mg IVP Q6 PRN PRN Reason: Pain, moderate (4-7) Torsemide (Demadex) 20 mg PO DAILY [facility] Last Admin: 09/10/16 11:27 Dose: 20 mg - Labs Labs: 09/11/16 05:30 09/11/16 05:30 PT 11.6 Seconds (9.9-11.8) 09/11/16 05:30 INR 1.07 (0.93-1.08) 09/11/16 05:30 APTT 30.3 Seconds (23.7-30.8) 09/11/16 05:30 Attending/Attestation - Attestation I have personally seen and examined this patient.: Yes I have fully participated in the care of the patient.: Yes I have reviewed all pertinent clinical information, including history, physical exam and plan: Yes
--- NOTE | 2016-09-09 16:09 | PN ---
DATE: 09/09/2016 The patient is in bed in no acute distress. PHYSICAL EXAMINATION: VITAL SIGNS: Temperature is 98, blood pressure is 128/80, respiratory rate of 20, heart rate of 80. HEENT: Unremarkable. NECK: Supple. LUNGS: Have decreased breath sounds. HEART: Normal S1, S2. ABDOMEN: Soft. LABORATORY DATA: Reveals a white count of 9.6, hemoglobin of 14. Coagulation is noted. Chemistries are noted. Microbiology is reviewed. Microbiology from acute care revealed coag negative staph in 1 bottle. There is E. coli in the right leg, corynebacterium in the right leg and the left leg. Review of the orders reveals the patient to be on vancomycin and ceftriaxone. The E. coli in right l eg is reported to be a pansensitive E. coli and DrFarhana ____ progress note is reviewed. Dr. Venegas's not e from yesterday is reviewed. ASSESSMENT AND PLAN: This is a 66-year-old male who was seen in room 304 with hypertension, morbid o besity, chronic venous stasis, bilateral extremities and cellulitis with Escherichia coli on day #6 o f vancomycin and ceftriaxone. We will discontinue intravenous antibiotics, legs have improved and pl faye the patient on p.o. Vantin to complete therapy. Jefry Wright MD cc: 350 TT: 09/09/2016 16:08:44 Confirmation # [id number] Dictation # [id number] spenser
[2016-09-09] MEDS: Cefpodoxime (Vantin) 200 mg Tab PO SCH (21:35)
[2016-09-10 07:29] LABS: ADD MANUAL DIFF? NO
[2016-09-10 07:38] LABS: BASO # 0.06 K/mm3 (0.0-2.0); BASO % 0.6 % (0.0-3.0); EOS # 0.2 (0.0-0.7); EOS % 2.3 % (1.5-5.0); GRAN # 4.64 (1.4-6.5); GRAN % 49.4 % (50.0-68.0); HEMATOCRIT 41.1 % (42.0-52.0); LYMPH # 3.7 (1.2-3.4); LYMPH % 38.9 % (22.0-35.0); MEAN CORPUSCULAR HEMOGLOBIN 30.8 pg (25.0-35.0); MEAN CORPUSCULAR HGB CONC 33.1 g/dl (31.0-37.0); MEAN PLATELET VOLUME 10.7 fl (7.0-11.0); MONO # 0.8 (0.1-0.6); MONO % 8.8 % (1.0-6.0); PLATELET COUNT 329 10^3/uL (120.0-450.0); RED CELL DISTRIBUTION WIDTH 12.3 % (11.5-14.5); WHITE BLOOD COUNT 9.4 10^3/ul (4.5-11.0)
--- NOTE | 2016-09-10 07:52 | CP.PCM.PN ---
Subjective - Date & Time of Evaluation Date of Evaluation: 09/10/16 Time of Evaluation: 07:47 - Subjective Subjective: Surgery: Dr. Kuhn Patient doing well in TCU. Patient for OR tomorrow for excision of BCC skin lesion on back. Patient has no current complaints. Objective - Vital Signs/Intake and Output Vital Signs (last 24 hours): Temp Pulse Resp BP Pulse Ox 98 F 77 18 154/77 H 94 L 09/10/16 06:00 09/10/16 06:00 09/10/16 06:00 09/10/16 06:00 09/10/16 06:00 - Medications Medications: Current Medications Acetaminophen (Tylenol 325mg Tab) 650 mg PO Q4 PRN; Protocol PRN Reason: Fever >100.4 F Last Admin: 09/09/16 12:13 Dose: 650 mg Amlodipine Besylate (Norvasc) 5 mg PO DAILY [facility] Last Admin: 09/09/16 09:46 Dose: 5 mg Cefpodoxime Proxetil (Vantin) 200 mg PO Q12 [facility] PRN Reason: Protocol Stop: 09/14/16 22:01 Last Admin: 09/09/16 21:35 Dose: 200 mg Morphine Sulfate (Morphine) 2 mg IVP Q6 PRN PRN Reason: Pain, moderate (4-7) Torsemide (Demadex) 20 mg PO DAILY [facility] Last Admin: 09/09/16 09:46 Dose: 20 mg - Labs Labs: 09/10/16 07:00 09/09/16 07:00 PT 11.7 Seconds (9.9-11.8) 09/09/16 07:00 INR 1.08 (0.93-1.08) 09/09/16 07:00 - Constitutional Appears: Well, Non-toxic, No Acute Distress - Head Exam Head Exam: ATRAUMATIC, NORMOCEPHALIC - Eye Exam Eye Exam: EOMI, Normal appearance - ENT Exam ENT Exam: Mucous Membranes Moist - Respiratory Exam Respiratory Exam: NORMAL BREATHING PATTERN. absent: Respiratory Distress - Cardiovascular Exam Cardiovascular Exam: REGULAR RHYTHM. absent: Tachycardia - Back Exam Additional comments: Mid-upper back skin lesion, ulcerated, no bleeding. 2x3cm approximated - Neurological Exam Neurological Exam: Alert, Awake - Psychiatric Exam Psychiatric exam: Normal Affect, Normal Mood - Skin Skin Exam: Dry, Normal Color, Warm Assessment and Plan - Assessment and Plan (Free Text) Assessment: 66 y/o M w/ BCC on the mid back Plan: -OR tomorrow -NPO pmn -am labs -d/w patient -further recs per Dr. Bam Joseph PGY1
[2016-09-10 08:01] LABS: ALB/GLOB RATIO 1.4 (1.1-1.8); ALKALINE PHOSPHATASE 89 U/L (38-133); ALT/SGPT 28 U/L (7-56); AST/SGOT 30 U/L (15-59); BILIRUBIN,TOTAL 0.7 mg/dL (0.2-1.3); BLOOD UREA NITROGEN 16 mg/dL (7-21); CALCIUM 9.6 mg/dL (8.4-10.5); CARBON DIOXIDE 30 mmol/L (21-33); CHLORIDE 99 mmol/L (95-110); GFR AFRICAN-AMERICAN > 60; GLUCOSE,RANDOM 78 mg/dL (70-110); POTASSIUM 4.2 mmol/L (3.6-5.0); SODIUM 137 mmol/L (132-148); TOTAL PROTEIN 7.5 g/dL (5.8-8.3)
[2016-09-10] MEDS: Cefpodoxime (Vantin) 200 mg Tab PO SCH ×2 (11:28→21:42)
--- NOTE | 2016-09-10 11:58 | PN ---
DATE: 09/10/2016 The patient is in bed, in no acute distress, nontoxic. PHYSICAL EXAMINATION: VITAL SIGNS: Temperature is 98, blood pressure is 130/70, respiratory rate of 18. HEENT: Unremarkable. NECK: Supple. LUNGS: Have decreased breath sounds. HEART: Normal S1, S2. ABDOMEN: Soft, nontender, no organomegaly, no rebound, no guarding, no masses. LABORATORY EXAMINATION: Reveals a white count of 9.4, hemoglobin of 13. Chemistries reveals the BUN of 16, creatinine of 1.0. Microbiology is noted. Review of orders reveals the patient to be on p.o. Vantin. ASSESSMENT AND PLAN: A 66-year-old male with hypertension, morbid obesity, chronic venous stasis, bi lateral lower extremity cellulitis and Escherichia coli, on day #7 of antibiotics, now on p.o. Vantin and patient for a possible biopsy tomorrow, skin biopsy. We will follow closely with you. Jefry Wright MD cc: 350 TT: 09/10/2016 11:57:38 Confirmation # [id number] Dictation # [id number] en
--- NOTE | 2016-09-10 14:16 | PN ---
DATE: 09/10/2016 The patient was seen and examined in the day room. Currently was eating lunch, comfortable. He has been ambulating despite. States that he is ready for his excision by tomorrow, but no chest pain, no shortness of breath, no nausea, no vomiting. PHYSICAL EXAMINATION: VITAL SIGNS: Blood pressure is 138/78, pulse rate of 74, temperature is 98.2, O2 saturation is 95 on room air. HEENT: Normocephalic, atraumatic. [place] conjunctivae, nonicteric sclerae. NECK: No JVD, no thyromegaly. CARDIOVASCULAR: Regular rate and rhythm. S1, S2 appreciated. No S3 noted. LUNGS: Bilateral air entry is positive. No wheezes or rhonchi. ABDOMEN: Nondistended, nontender. Positive bowel sounds. EXTREMITIES: Did note that his foot is in a walking cast at this point. ASSESSMENT: 1. Cellulitis of the foot. 2. Basal carcinoma to the midback. PLAN: At this point, he is going for surgery in the morning. Currently, he is tolerating his Vantin that he is receiving p.o. He is also getting morphine IV q. 6 and again, he is for surgery in the [facility]. He has been evaluated with Dr. Wright for ID, Dr. Rahman for podiatry, as well as Dr. Brandon higginbotham for his basal cell carcinoma. Jose M Villanueva MD cc: [id number] TT: 09/10/2016 14:16:10 Confirmation # [id number] Dictation # [id number] miguel angel
[2016-09-11 06:29] LABS: ADD MANUAL DIFF? NO
[2016-09-11 06:35] LABS: BASO # 0.04 K/mm3 (0.0-2.0); BASO % 0.5 % (0.0-3.0); EOS # 0.2 (0.0-0.7); EOS % 2.1 % (1.5-5.0); GRAN # 4.48 (1.4-6.5); GRAN % 53.2 % (50.0-68.0); HEMATOCRIT 39.6 % (42.0-52.0); LYMPH % 35.7 % (22.0-35.0); MEAN CELL VOLUME 92.3 fL (80.0-105.0); MEAN CORPUSCULAR HEMOGLOBIN 30.8 pg (25.0-35.0); MEAN CORPUSCULAR HGB CONC 33.3 g/dl (31.0-37.0); MEAN PLATELET VOLUME 10.2 fl (7.0-11.0); MONO # 0.7 (0.1-0.6); MONO % 8.5 % (1.0-6.0); PLATELET COUNT 278 10^3/uL (120.0-450.0); RED CELL DISTRIBUTION WIDTH 12.3 % (11.5-14.5); WHITE BLOOD COUNT 8.4 10^3/ul (4.5-11.0)
[2016-09-11 06:47] LABS: INR 1.07 (0.93-1.08); PARTIAL THROMBOPLASTIN TIME 30.3 Seconds (23.7-30.8)
[2016-09-11 06:55] LABS: ALB/GLOB RATIO 1.2 (1.1-1.8); ALKALINE PHOSPHATASE 83 U/L (38-133); ALT/SGPT 25 U/L (7-56); AST/SGOT 31 U/L (15-59); BILIRUBIN,TOTAL 0.6 mg/dL (0.2-1.3); BLOOD UREA NITROGEN 16 mg/dL (7-21); CALCIUM 9.1 mg/dL (8.4-10.5); CARBON DIOXIDE 29 mmol/L (21-33); CHLORIDE 102 mmol/L (98-107); GFR AFRICAN-AMERICAN > 60; GLUCOSE,RANDOM 88 mg/dL (70-110); POTASSIUM 3.8 mmol/L (3.6-5.0); SODIUM 139 mmol/L (132-148); TOTAL PROTEIN 6.7 g/dL (5.8-8.3)
[2016-09-11] MEDS ORDERED: Propofol 10 mg/ml Inj (20 ML) ONE (08:16)
[2016-09-11] MEDS ORDERED: Succinylcholine 200 mg/10 ml Inj IV ONE (08:16)
[2016-09-11] MEDS ORDERED: Desflurane Inhalation Anesthetic Liq (240 ml) ONE (08:23)
[2016-09-11] MEDS ORDERED: Unna Boot TOP ONE (09:16)
[2016-09-11] MEDS ORDERED: Neostigmine Methylsulfate 3mg/3ml Syringe IV ONE (09:32)
--- NOTE | 2016-09-11 12:45 | OP ---
PROCEDURE DATE: 09/11/2016 The patient seen and examined at bedside. Friend was at bedside at the point. The patient is going for extraction and I and D of basal cell carcinoma of the back. Currently, he is not having any ches t pain. No shortness of breath, no nausea, no vomiting. OBJECTIVE: VITAL SIGNS: Blood pressure is currently 143/74, pulse rate of 66, temperature is 97.4, O2 saturatio n 95%. HEENT: Normocephalic, atraumatic. [place] conjunctivae, nonicteric sclerae. No JVD, no thyromegaly. CARDIOVASCULAR: Regular rate and rhythm. S1, S2 appreciated. No S3 noted. LUNGS: Bilateral air entry is positive. No wheezes or rhonchi. ABDOMEN: Nondistended, nontender. Positive bowel sounds. LABORATORIES: At this point, WBCs of 8.4, hemoglobin 13.2, hematocrit of 39.6, platelets of 278. Ch emistry and LFTs within normal limits. ASSESSMENT: 1. Cellulitis of bilateral feet. 2. Basal carcinoma of the mid back. PLAN: At this time, we will continue p.o. antibiotics on this patient. The patient is going for [facility] today and we will follow up the patient very closely. Jose M Villanueva MD cc: [id number] TT: 09/11/2016 12:45:44 en
[2016-09-11] MEDS: Cefpodoxime (Vantin) 200 mg Tab PO SCH ×2 (13:18→22:22)
--- NOTE | 2016-09-11 16:10 | PN ---
DATE: 09/11/2016 The patient is in bed, in no acute distress. PHYSICAL EXAMINATION: VITAL SIGNS: Temperature is 97, blood pressure is 140/70, respiratory rate of 16. HEENT: Unremarkable. NECK: Supple. LUNGS: Have decreased breath sounds. HEART: Normal S1, S2. ABDOMEN: Soft. LABORATORY EXAMINATION: Reveals a white count of 8.4, hemoglobin of 13. Chemistries are noted. Review of orders reveals the patient to be off of antibiotics IV. The patient is now on p.o. cefpodo mandy. ASSESSMENT AND PLAN: A 66-year-old male with hypertension, morbid obesity, chronic venous stasis, bi lateral lower extremity cellulitis and Escherichia coli, on p.o. Vantin and patient is status post a skin biopsy today. We will check on the pathology report. Jefry Wright MD cc: [id number] TT: 09/11/2016 16:09:24 Confirmation # [id number] Dictation # [id number] en
--- NOTE | 2016-09-11 16:46 | CP.PCM.PN ---
<KanchanEveline - Last Filed: 09/11/16 16:44> Subjective - Date & Time of Evaluation Date of Evaluation: 09/11/16 Time of Evaluation: 16:44 - Subjective Subjective: 66 y/o male patient was seen at bedside with attending Dr. Venegas for bilateral leg cellulitis and superficial ulcerations. Dressing to Left lower extremity showed mild strikethrough, right dressing clean dry and intact. He denies any acute events overnight. Patient went for surgery today to remove basal cell carcinoma on his back. He states that the procedure went well with no complications. Patient denies n/f/v/d/c/sob. Objective - Vital Signs/Intake and Output Vital Signs (last 24 hours): Temp Pulse Resp BP Pulse Ox 97.4 F L 66 18 143/74 95 09/11/16 06:00 09/11/16 06:00 09/11/16 06:00 09/11/16 06:00 09/11/16 06:00 - Medications Medications: Current Medications Acetaminophen (Tylenol 325mg Tab) 650 mg PO Q4 PRN; Protocol PRN Reason: Fever >100.4 F Last Admin: 09/10/16 11:26 Dose: 650 mg Amlodipine Besylate (Norvasc) 5 mg PO DAILY [facility] Last Admin: 09/11/16 13:17 Dose: 5 mg Cefpodoxime Proxetil (Vantin) 200 mg PO Q12 [facility] PRN Reason: Protocol Stop: 09/14/16 22:01 Last Admin: 09/11/16 13:18 Dose: 200 mg Morphine Sulfate (Morphine) 2 mg IVP Q6 PRN PRN Reason: Pain, moderate (4-7) Torsemide (Demadex) 20 mg PO DAILY [facility] Last Admin: 09/11/16 13:16 Dose: 20 mg - Labs Labs: 09/11/16 05:30 09/11/16 05:30 PT 11.6 Seconds (9.9-11.8) 09/11/16 05:30 INR 1.07 (0.93-1.08) 09/11/16 05:30 APTT 30.3 Seconds (23.7-30.8) 09/11/16 05:30 - Constitutional Appears: Well, Non-toxic, No Acute Distress - Extremities Exam Additional comments: Bilateral lower extremity exam derm: Right: diffuse erythema noted to bilateral foot and legs up to midcalf, superficial patchy ulcerations with moderate serous drainage noted from anterior right leg wound, no purulence, no malodor, no undermining, Left: Superficial ulceration noted to dorsolateral and posteromedial foot with mix of fibrotic and granular base (8:2), mild sero-sanguinous drainage is noted. No purulent discharge noted, no fluctuance, no malodor, no undermining Vasc: Edema, Palpable pedal pulses, TG wnl, CFT < 4 sec to all digits bilaterally neuro: grossly diminished ortho: pain on palpation of legs b/l - Neurological Exam Neurological Exam: Alert, Awake, Oriented x3 - Psychiatric Exam Psychiatric exam: Normal Affect, Normal Mood Assessment and Plan - Assessment and Plan (Free Text) Assessment: 66 y/o male seen at bedside for superficial leg ulcerations with bilateral leg cellulitis, improving Plan: patient evaluated and chart reviewed, Rounded with attending Dr. Venegas labs and vitals reviewed; wbc 8.4 cleansed legs with sterile normal saline applied xeroform, DSD, ABD, kerlix, MARY to bilateral LE continue IV abx- vanco and rocephin cont. PT patient stable from podiatry standpoint patient to follow up at wound care center as outpatient <Beto Venegas - Last Filed: 09/12/16 13:12> Objective - Vital Signs/Intake and Output Vital Signs (last 24 hours): Temp Pulse Resp BP Pulse Ox 97.4 F L 77 18 148/84 95 09/11/16 06:00 09/12/16 10:30 09/11/16 06:00 09/12/16 10:30 09/11/16 06:00 - Medications Medications: Current Medications Acetaminophen (Tylenol 325mg Tab) 650 mg PO Q4 PRN; Protocol PRN Reason: Fever >100.4 F Last Admin: 09/12/16 10:34 Dose: 650 mg Amlodipine Besylate (Norvasc) 5 mg PO DAILY [facility] Last Admin: 09/12/16 10:30 Dose: 5 mg Cefpodoxime Proxetil (Vantin) 200 mg PO Q12 [facility] PRN Reason: Protocol Stop: 09/14/16 22:01 Last Admin: 09/12/16 10:31 Dose: 200 mg Morphine Sulfate (Morphine) 2 mg IVP Q6 PRN PRN Reason: Pain, moderate (4-7) Torsemide (Demadex) 20 mg PO DAILY [facility] Last Admin: 09/12/16 10:30 Dose: 20 mg - Labs Labs: 09/12/16 07:30 09/12/16 07:30 PT 11.6 Seconds (9.9-11.8) 09/11/16 05:30 INR 1.07 (0.93-1.08) 09/11/16 05:30 APTT 30.3 Seconds (23.7-30.8) 09/11/16 05:30 Attending/Attestation - Attestation I have personally seen and examined this patient.: Yes I have fully participated in the care of the patient.: Yes I have reviewed all pertinent clinical information, including history, physical exam and plan: Yes
[2016-09-12 07:31] LABS: ADD MANUAL DIFF? NO
[2016-09-12 07:38] LABS: BASO # 0.01 K/mm3 (0.0-2.0); BASO % 0.1 % (0.0-3.0); GRAN # 11.02 (1.4-6.5); GRAN % 74.3 % (50.0-68.0); HEMATOCRIT 41.1 % (42.0-52.0); LYMPH # 2.9 (1.2-3.4); LYMPH % 19.3 % (22.0-35.0); MEAN CELL VOLUME 91.7 fL (80.0-105.0); MEAN CORPUSCULAR HGB CONC 33.8 g/dl (31.0-37.0); MEAN PLATELET VOLUME 10.5 fl (7.0-11.0); MONO # 0.9 (0.1-0.6); MONO % 6.3 % (1.0-6.0); PLATELET COUNT 337 10^3/uL (120.0-450.0); RED CELL DISTRIBUTION WIDTH 12.2 % (11.5-14.5); WHITE BLOOD COUNT 14.8 10^3/ul (4.5-11.0)
[2016-09-12 07:46] LABS: ALB/GLOB RATIO 1.4 (1.1-1.8); ALKALINE PHOSPHATASE 95 U/L (38-133); ALT/SGPT 36 U/L (7-56); AST/SGOT 33 U/L (15-59); BILIRUBIN,TOTAL 0.6 mg/dL (0.2-1.3); BLOOD UREA NITROGEN 19 mg/dL (7-21); CALCIUM 9.8 mg/dL (8.4-10.5); CARBON DIOXIDE 29 mmol/L (21-33); CHLORIDE 99 mmol/L (95-110); GFR AFRICAN-AMERICAN > 60; GLUCOSE,RANDOM 105 mg/dL (70-110); POTASSIUM 4.4 mmol/L (3.6-5.0); SODIUM 139 mmol/L (132-148); TOTAL PROTEIN 7.7 g/dL (5.8-8.3)
--- NOTE | 2016-09-12 09:12 | CP.PCM.PN ---
Subjective - Date & Time of Evaluation Date of Evaluation: 09/12/16 Time of Evaluation: 07:12 - Subjective Subjective: Mckay Chappell D.O. PGY-1, General Surgery Progress Note: Dr. Bam Ding. 66 year old male POD#1 for removal of BCC of right upper back. Patient was seen and examined at bedside with surgical team. At this time patient continues in his usual good spirits, states that his back dressing has stayed in place and his pain is well controlled at this time. No N/V/D/C/fevers/chills or other complaints. Objective - Vital Signs/Intake and Output Vital Signs (last 24 hours): Temp Pulse Resp BP Pulse Ox 97.4 F L 66 18 143/74 95 09/11/16 06:00 09/11/16 06:00 09/11/16 06:00 09/11/16 06:00 09/11/16 06:00 - Medications Medications: Current Medications Acetaminophen (Tylenol 325mg Tab) 650 mg PO Q4 PRN; Protocol PRN Reason: Fever >100.4 F Last Admin: 09/11/16 23:28 Dose: 650 mg Amlodipine Besylate (Norvasc) 5 mg PO DAILY [facility] Last Admin: 09/11/16 13:17 Dose: 5 mg Cefpodoxime Proxetil (Vantin) 200 mg PO Q12 [facility] PRN Reason: Protocol Stop: 09/14/16 22:01 Last Admin: 09/11/16 22:22 Dose: 200 mg Morphine Sulfate (Morphine) 2 mg IVP Q6 PRN PRN Reason: Pain, moderate (4-7) Torsemide (Demadex) 20 mg PO DAILY [facility] Last Admin: 09/11/16 13:16 Dose: 20 mg - Labs Labs: 09/12/16 07:30 09/12/16 07:30 PT 11.6 Seconds (9.9-11.8) 09/11/16 05:30 INR 1.07 (0.93-1.08) 09/11/16 05:30 APTT 30.3 Seconds (23.7-30.8) 09/11/16 05:30 - Constitutional Appears: Well, Non-toxic - Head Exam Head Exam: ATRAUMATIC, NORMOCEPHALIC - Eye Exam Eye Exam: EOMI, Normal appearance - ENT Exam ENT Exam: Mucous Membranes Moist - Respiratory Exam Respiratory Exam: absent: Accessory Muscle Use, Respiratory Distress - Cardiovascular Exam Cardiovascular Exam: RRR - GI/Abdominal Exam GI & Abdominal Exam: Soft. absent: Tenderness - Back Exam Additional comments: midline dressing in place, C/D/I - Neurological Exam Neurological Exam: Alert, Awake, Oriented x3 - Skin Skin Exam: Dry, Warm Assessment and Plan - Assessment and Plan (Free Text) Assessment: 66 year old male POD#1 for removal of BCC of right upper back. Plan: Dressing must stay on for 5 days, discussed with patient Encouraged ambulation Cont pain control Will continue to follow Will discuss with attending physician. Thank you for the pleasure of participating in the care of this patient.
[2016-09-12] MEDS: Cefpodoxime (Vantin) 200 mg Tab PO SCH ×2 (10:31→21:49)
--- NOTE | 2016-09-12 13:57 | CP.PCM.PN ---
<Deepika Hemphilla - Last Filed: 09/12/16 13:52> Subjective - Date & Time of Evaluation Date of Evaluation: 09/12/16 Time of Evaluation: 13:52 - Subjective Subjective: 66 y/o male patient was seen at bedside with attending Dr. Venegas for bilateral leg cellulitis and superficial ulcerations. Both dressings to lower extremities clean dry and intact. He denies any acute events overnight. Patient denies n/f/v /d/c/sob. Objective - Vital Signs/Intake and Output Vital Signs (last 24 hours): Temp Pulse Resp BP Pulse Ox 97.4 F L 77 18 148/84 95 09/11/16 06:00 09/12/16 10:30 09/11/16 06:00 09/12/16 10:30 09/11/16 06:00 - Medications Medications: Current Medications Acetaminophen (Tylenol 325mg Tab) 650 mg PO Q4 PRN; Protocol PRN Reason: Fever >100.4 F Last Admin: 09/12/16 10:34 Dose: 650 mg Amlodipine Besylate (Norvasc) 5 mg PO DAILY [facility] Last Admin: 09/12/16 10:30 Dose: 5 mg Cefpodoxime Proxetil (Vantin) 200 mg PO Q12 [facility] PRN Reason: Protocol Stop: 09/14/16 22:01 Last Admin: 09/12/16 10:31 Dose: 200 mg Morphine Sulfate (Morphine) 2 mg IVP Q6 PRN PRN Reason: Pain, moderate (4-7) Torsemide (Demadex) 20 mg PO DAILY [facility] Last Admin: 09/12/16 10:30 Dose: 20 mg - Labs Labs: 09/12/16 07:30 09/12/16 07:30 PT 11.6 Seconds (9.9-11.8) 09/11/16 05:30 INR 1.07 (0.93-1.08) 09/11/16 05:30 APTT 30.3 Seconds (23.7-30.8) 09/11/16 05:30 - Constitutional Appears: Well, Non-toxic, No Acute Distress - Extremities Exam Additional comments: Bilateral lower extremity exam Vasc: Edema, Palpable pedal pulses, TG wnl, CFT < 4 sec to all digits bilaterally Derm: Diffuse erythema noted to bilateral foot and legs up to midcalf Right: superficial patchy ulcerations with minimal serous drainage noted from anterior right leg wound, no purulence, no malodor, no undermining, Left: Superficial ulceration noted to dorsolateral and posteromedial foot with mix of fibrotic and granular base (8:2), mild sero-sanguinous drainage is noted. No purulent discharge noted, no fluctuance, no malodor, no undermining Neuro: grossly diminished Ortho: pain on palpation of left leg. No pain on palpation of right leg. - Neurological Exam Neurological Exam: Alert, Awake, Oriented x3 - Psychiatric Exam Psychiatric exam: Normal Affect, Normal Mood Assessment and Plan - Assessment and Plan (Free Text) Assessment: 66 y/o male seen at bedside for superficial leg ulcerations with bilateral leg cellulitis, improving Plan: patient seen and evaluated at bedside with Dr. Venegas and chart reviewed labs and vitals reviewed; wbc 14.8 Cleansed B/L legs with sterile normal saline applied xeroform, DSD, ABD, kerlix, MARY to bilateral LE Cont. IV abx- vanco and rocephin cont. PT Patient is stable from podiatry standpoint patient to follow up at wound care center as outpatient <Beto Venegas - Last Filed: 09/15/16 11:05> Objective - Vital Signs/Intake and Output Vital Signs (last 24 hours): Temp Pulse Resp BP Pulse Ox 97.8 F 64 18 130/78 98 09/13/16 11:50 09/13/16 11:50 09/13/16 11:50 09/13/16 11:50 09/13/16 11:50 - Labs Labs: 09/12/16 07:30 09/12/16 07:30 PT 11.6 Seconds (9.9-11.8) 09/11/16 05:30 INR 1.07 (0.93-1.08) 09/11/16 05:30 APTT 30.3 Seconds (23.7-30.8) 09/11/16 05:30 Attending/Attestation - Attestation I have personally seen and examined this patient.: Yes I have fully participated in the care of the patient.: Yes I have reviewed all pertinent clinical information, including history, physical exam and plan: Yes
--- NOTE | 2016-09-12 23:36 | CP.PCM.PN ---
Subjective - Date & Time of Evaluation Date of Evaluation: 09/12/16 Time of Evaluation: 06:30 - Subjective Subjective: DOING WELL Objective - Vital Signs/Intake and Output Vital Signs (last 24 hours): Temp Pulse Resp BP Pulse Ox 98.3 F 81 20 154/82 H 96 09/12/16 15:57 09/12/16 15:57 09/12/16 15:57 09/12/16 15:57 09/12/16 15:57 Intake and Output: 09/12/16 09/13/16 18:59 06:59 Intake Total 680 Balance 680 - Medications Medications: Current Medications Acetaminophen (Tylenol 325mg Tab) 650 mg PO Q4 PRN; Protocol PRN Reason: Fever >100.4 F Last Admin: 09/12/16 21:52 Dose: 650 mg Amlodipine Besylate (Norvasc) 5 mg PO DAILY [facility] Last Admin: 09/12/16 10:30 Dose: 5 mg Cefpodoxime Proxetil (Vantin) 200 mg PO Q12 [facility] PRN Reason: Protocol Stop: 09/14/16 22:01 Last Admin: 09/12/16 21:49 Dose: 200 mg Morphine Sulfate (Morphine) 2 mg IVP Q6 PRN PRN Reason: Pain, moderate (4-7) Torsemide (Demadex) 20 mg PO DAILY [facility] Last Admin: 09/12/16 10:30 Dose: 20 mg - Labs Labs: 09/12/16 07:30 09/12/16 07:30 PT 11.6 Seconds (9.9-11.8) 09/11/16 05:30 INR 1.07 (0.93-1.08) 09/11/16 05:30 APTT 30.3 Seconds (23.7-30.8) 09/11/16 05:30 - Constitutional Appears: Well - Head Exam Head Exam: ATRAUMATIC, NORMAL INSPECTION, NORMOCEPHALIC - Eye Exam Eye Exam: EOMI, Normal appearance, PERRL Pupil Exam: NORMAL ACCOMODATION, PERRL - ENT Exam ENT Exam: Mucous Membranes Moist, Normal Exam - Neck Exam Neck Exam: Full ROM, Normal Inspection. absent: Lymphadenopathy - Respiratory Exam Respiratory Exam: Clear to Ausculation Bilateral, NORMAL BREATHING PATTERN - Cardiovascular Exam Cardiovascular Exam: REGULAR RHYTHM, +S1, +S2. absent: Murmur - GI/Abdominal Exam GI & Abdominal Exam: Soft, Normal Bowel Sounds. absent: Tenderness - Rectal Exam Rectal Exam: NORMAL INSPECTION - Exam Exam: Circumcision, NORMAL INSPECTION External exam: NORMAL EXTERNAL EXAM Speculum exam: NORMAL SPECULUM EXAM Bimanual exam: NORMAL BIMANUAL EXAM - Extremities Exam Extremities Exam: Full ROM, Normal Capillary Refill, Normal Inspection. absent : Joint Swelling, Pedal Edema - Back Exam Back Exam: NORMAL INSPECTION - Neurological Exam Neurological Exam: Alert, Awake, CN II-XII Intact, Normal Gait, Oriented x3 - Psychiatric Exam Psychiatric exam: Normal Affect, Normal Mood - Skin Skin Exam: Dry, Intact, Normal Color, Warm Assessment and Plan (1) Cellulitis Status: Acute - Assessment and Plan (Free Text) Assessment: CELLULITIS Plan: YOLA ZAMAN
[2016-09-13] MEDS: Cefpodoxime (Vantin) 200 mg Tab PO SCH (09:48)
--- NOTE | 2016-09-13 09:56 | CP.PCM.PN ---
Subjective - Date & Time of Evaluation Date of Evaluation: 09/13/16 Time of Evaluation: 09:51 - Subjective Subjective: 66 y/o male patient seen at bedside for bilateral leg cellulitis and superficial ulcerations. Patient is AAOx3 and NAD. Both dressings to lower extremities are clean dry and intact. He denies any acute events overnight. Patient denies n/f/v/d/c/sob. No other pedal complaints at this time. Objective - Vital Signs/Intake and Output Vital Signs (last 24 hours): Temp Pulse Resp BP Pulse Ox 98.3 F 81 20 154/82 H 96 09/12/16 15:57 09/12/16 15:57 09/12/16 15:57 09/12/16 15:57 09/12/16 15:57 Intake and Output: 09/13/16 09/13/16 06:59 18:59 Intake Total 680 Balance 680 - Medications Medications: Current Medications Acetaminophen (Tylenol 325mg Tab) 650 mg PO Q4 PRN; Protocol PRN Reason: Fever >100.4 F Last Admin: 09/12/16 21:52 Dose: 650 mg Amlodipine Besylate (Norvasc) 5 mg PO DAILY [facility] Last Admin: 09/12/16 10:30 Dose: 5 mg Cefpodoxime Proxetil (Vantin) 200 mg PO Q12 [facility] PRN Reason: Protocol Stop: 09/14/16 22:01 Last Admin: 09/12/16 21:49 Dose: 200 mg Morphine Sulfate (Morphine) 2 mg IVP Q6 PRN PRN Reason: Pain, moderate (4-7) Torsemide (Demadex) 20 mg PO DAILY [facility] Last Admin: 09/12/16 10:30 Dose: 20 mg - Labs Labs: 09/12/16 07:30 09/12/16 07:30 PT 11.6 Seconds (9.9-11.8) 09/11/16 05:30 INR 1.07 (0.93-1.08) 09/11/16 05:30 APTT 30.3 Seconds (23.7-30.8) 09/11/16 05:30 - Constitutional Appears: Well, Non-toxic, No Acute Distress - Extremities Exam Additional comments: Vasc: Pitting edema noted to lower extremity b/l, Palpable pedal pulses, TG wnl , CFT < 4 sec to all digits bilaterally Derm: Diffuse erythema noted to bilateral foot and legs up to midcalf Right: superficial patchy ulcerations with minimal serous drainage noted from anterior right leg wound, no purulence, no malodor, no undermining, or clinical signs of infection noted Left: Superficial ulceration noted to dorsolateral and posteromedial foot with mix of fibrotic and granular base (8:2), mild sero-sanguinous drainage is noted. No purulent discharge noted, no fluctuance, no malodor, no undermining Neuro: grossly diminished Ortho: Tenderness to palpation of bilateral legs - Neurological Exam Neurological Exam: Alert, Awake, Oriented x3 - Psychiatric Exam Psychiatric exam: Normal Affect, Normal Mood Assessment and Plan - Assessment and Plan (Free Text) Assessment: 66 y/o male seen at bedside for superficial leg ulcerations with bilateral leg cellulitis, resolved Plan: patient seen and evaluated at bedside Discussed with attending, Dr. Rahman labs and vitals reviewed Unna boot applied to bilateral lower extremity and dressed with [place] Patient is stable from podiatry standpoint patient to follow up at wound care center as outpatient on 09/25/16
--- NOTE | 2016-09-13 10:09 | CP.PCM.PN ---
Subjective - Date & Time of Evaluation Date of Evaluation: 09/13/16 Time of Evaluation: 06:45 - Subjective Subjective: Mckay Chappell D.O. PGY-1, General Surgery Progress Note: Dr. Bam Ding. 66 year old male POD#2 for removal of BCC of right upper back. Patient was seen and examined at bedside with surgical team. Patient continues to do very well, was found sitting up working on his laptop. Patient does not have complaints including no N/V/D/C/fevers/chills or otherwise. Objective - Vital Signs/Intake and Output Vital Signs (last 24 hours): Temp Pulse Resp BP Pulse Ox 98.3 F 66 20 130/84 96 09/12/16 15:57 09/13/16 09:47 09/12/16 15:57 09/13/16 09:47 09/12/16 15:57 Intake and Output: 09/13/16 09/13/16 06:59 18:59 Intake Total 680 Balance 680 - Medications Medications: Current Medications Acetaminophen (Tylenol 325mg Tab) 650 mg PO Q4 PRN; Protocol PRN Reason: Fever >100.4 F Last Admin: 09/12/16 21:52 Dose: 650 mg Amlodipine Besylate (Norvasc) 5 mg PO DAILY [facility] Last Admin: 09/13/16 09:47 Dose: 5 mg Cefpodoxime Proxetil (Vantin) 200 mg PO Q12 [facility] PRN Reason: Protocol Stop: 09/14/16 22:01 Last Admin: 09/13/16 09:48 Dose: 200 mg Morphine Sulfate (Morphine) 2 mg IVP Q6 PRN PRN Reason: Pain, moderate (4-7) Torsemide (Demadex) 20 mg PO DAILY [facility] Last Admin: 09/13/16 09:47 Dose: 20 mg - Labs Labs: 09/12/16 07:30 09/12/16 07:30 PT 11.6 Seconds (9.9-11.8) 09/11/16 05:30 INR 1.07 (0.93-1.08) 09/11/16 05:30 APTT 30.3 Seconds (23.7-30.8) 09/11/16 05:30 - Constitutional Appears: Well, Non-toxic - Head Exam Head Exam: ATRAUMATIC, NORMOCEPHALIC - Eye Exam Eye Exam: EOMI, Normal appearance - ENT Exam ENT Exam: Mucous Membranes Moist - Respiratory Exam Respiratory Exam: absent: Accessory Muscle Use, Respiratory Distress - Cardiovascular Exam Cardiovascular Exam: RRR - GI/Abdominal Exam GI & Abdominal Exam: Soft. absent: Tenderness - Back Exam Additional comments: thoracic dressing in place, C/D/I - Neurological Exam Neurological Exam: Alert, Awake, Oriented x3 - Skin Skin Exam: Dry, Warm Assessment and Plan - Assessment and Plan (Free Text) Assessment: 66 year old male POD#2 for removal of BCC of right upper back. Plan: Dressing to stay on for another 3 days Cont encouraged ambulation Cont pain control Will continue to follow, patient aware that he must follow up in the office with Dr. Bam Ding. Will discuss with attending physician. Thank you for the pleasure of participating in the care of this patient.
[2016-09-13 11:51] VITALS: BP 130/78; PULSE 64; RESP 18; TEMP 97.8; O2SAT 98
--- NOTE | 2016-09-13 19:34 | CP.PCM.PN ---
Subjective - Date & Time of Evaluation Date of Evaluation: 09/13/16 Time of Evaluation: 08:25 - Subjective Subjective: DOING WELL AMBULATING Objective - Vital Signs/Intake and Output Vital Signs (last 24 hours): Temp Pulse Resp BP Pulse Ox 97.8 F 64 18 130/78 98 09/13/16 11:50 09/13/16 11:50 09/13/16 11:50 09/13/16 11:50 09/13/16 11:50 - Labs Labs: 09/12/16 07:30 09/12/16 07:30 PT 11.6 Seconds (9.9-11.8) 09/11/16 05:30 INR 1.07 (0.93-1.08) 09/11/16 05:30 APTT 30.3 Seconds (23.7-30.8) 09/11/16 05:30 - Constitutional Appears: Well - Head Exam Head Exam: ATRAUMATIC, NORMAL INSPECTION, NORMOCEPHALIC - Eye Exam Eye Exam: EOMI, Normal appearance, PERRL Pupil Exam: NORMAL ACCOMODATION, PERRL - ENT Exam ENT Exam: Mucous Membranes Moist, Normal Exam - Neck Exam Neck Exam: Full ROM, Normal Inspection. absent: Lymphadenopathy - Respiratory Exam Respiratory Exam: Clear to Ausculation Bilateral, NORMAL BREATHING PATTERN - Cardiovascular Exam Cardiovascular Exam: REGULAR RHYTHM, +S1, +S2. absent: Murmur - GI/Abdominal Exam GI & Abdominal Exam: Soft, Normal Bowel Sounds. absent: Tenderness - Rectal Exam Rectal Exam: NORMAL INSPECTION - Exam Exam: Circumcision, NORMAL INSPECTION External exam: NORMAL EXTERNAL EXAM Speculum exam: NORMAL SPECULUM EXAM Bimanual exam: NORMAL BIMANUAL EXAM - Extremities Exam Extremities Exam: Full ROM, Normal Capillary Refill, Normal Inspection. absent : Joint Swelling, Pedal Edema - Back Exam Back Exam: NORMAL INSPECTION - Neurological Exam Neurological Exam: Alert, Awake, CN II-XII Intact, Normal Gait, Oriented x3 - Psychiatric Exam Psychiatric exam: Normal Affect, Normal Mood - Skin Skin Exam: Dry, Intact, Normal Color, Warm Assessment and Plan (1) Cellulitis Status: Acute (2) Cellulitis, leg Status: Acute - Assessment and Plan (Free Text) Assessment: CELLULITIS OF LEG Plan: OFF OF ABX
== END 2016-09-13 11:55 | disposition home or self-care (01) | DRG 603 ==
LOC: TRCU 12:29
PROVIDERS: ADMIT Family Medicine; ATTEND Family Medicine
PROC: F07Z9ZZ Gait Training/Functional Ambulation Treatment (ICD-10-PCS; principal; 2016-09-07)
PROC: F08Z4ZZ Home Management Treatment (ICD-10-PCS; 2016-09-07)
DX: L03.116 Cellulitis of left lower limb (principal); L03.115 Cellulitis of right lower limb; L97.819 Non-pressure chronic ulcer of other part of right lower leg with unspecified severity; L97.829 Non-pressure chronic ulcer of other part of left lower leg with unspecified severity; Z79.2 Long term (current) use of antibiotics; I10 Essential (primary) hypertension; Z68.41 Body mass index [BMI] 40.0-44.9, adult; C44.519 Basal cell carcinoma of skin of other part of trunk; B96.20 Unspecified Escherichia coli [E. coli] as the cause of diseases classified elsewhere; I87.2 Venous insufficiency (chronic) (peripheral); E66.01 Morbid (severe) obesity due to excess calories; M16.11 Unilateral primary osteoarthritis, right hip; Z87.891 Personal history of nicotine dependence

== ENCOUNTER 2016-09-11 07:49 | Day surgery (SDC) | payer MEDICARE ==
[~2016-09-11 07:49] MED LIST: Bupivacaine 0.5% Inj(30mL) ONE; Lidocaine 1% Inj (20ml) ONE; Liquid Adhesive TOP ONE; Mineral Oil Light Sterile 25 ml ONE
[2016-09-11 08:02] VITALS: BMI 29.7
[2016-09-11 08:08] VITALS: RESP 18
[2016-09-11] MEDS ORDERED: HYDROmorphone 0.5 mg/0.5 ml ISec IVP PRN ×2 (08:10→08:13)
[2016-09-11] MEDS ORDERED: Lactated Ringer's 1,000 ML IV SCH (08:10)
--- NOTE | 2016-09-11 10:10 | PCM.SURG1 ---
Surgeon's Initial Post Op Note - Surgeon's Notes Surgeon: Dr. Kuhn Ornamental Ironworker: Dr. Quinonez Type of Anesthesia: General Endo Pre-Operative Diagnosis: basal cell carcinoma skin lesion on upper right mid back 3x2cm Operative Findings: see op report Post-Operative Diagnosis: same Operation Performed: wide local excision of basal cell carcinoma of the right mid upper back w/ superior and inferior flap advancement and split thickness skin grafting from right lateral upper thigh donor site Specimen/Specimens Removed: basal cell carcinoma skin lesion from right mid upper back Estimated Blood Loss: EBL {In ML}: 10 Blood Products Given: N/A Drains Used: No Drains Post-Op Condition: Good Date of Surgery/Procedure: 09/11/16 Time of Surgery/Procedure: 10:10
[2016-09-11 11:07] VITALS: BP 140/59; PULSE 57; TEMP 97.9; O2SAT 96
--- NOTE | 2016-09-15 22:49 | CP.PCM.PN ---
Subjective - Date & Time of Evaluation Date of Evaluation: 09/12/16 Time of Evaluation: 07:00 - Subjective Subjective: I saw Mr. Perez in bed this morning is resting comfortable IV antibiotics are infusing he is in good spirits is eating well both his feet are bandaged and he status post basal cell carcinoma removed removal on his back Objective - Vital Signs/Intake and Output Vital Signs (last 24 hours): Temp Pulse Resp BP Pulse Ox 97.9 F 57 L 18 140/59 L 96 09/11/16 11:00 09/11/16 11:00 09/11/16 11:00 09/11/16 11:00 09/11/16 11:00 - Constitutional Appears: Non-toxic - Head Exam Head Exam: NORMAL INSPECTION - ENT Exam ENT Exam: Mucous Membranes Moist - Respiratory Exam Respiratory Exam: Clear to Ausculation Bilateral, NORMAL BREATHING PATTERN - Cardiovascular Exam Cardiovascular Exam: REGULAR RHYTHM - GI/Abdominal Exam GI & Abdominal Exam: Soft, Normal Bowel Sounds - Extremities Exam Additional comments: Both his feet are bandaged for cellulitis and ulcers - Skin Additional comments: Bilateral lower extremity cellulitis with ulcers on his feet a large basal cell that was excised on his back by surgery and is bandaged - Additional Findings Additional findings: Very difficult for him to walk due to osteoarthritis severe of his right hip Assessment and Plan - Assessment and Plan (Free Text) Assessment: Bilateral cellulitis of the feet with ulcers large basal cell carcinoma removed and right hip osteoarthritis severe Plan: Continue postop care of the basal cell removal IV antibiotics for the cellulitis of bilateral lower extremities physical therapy encouragement to get out of bed to eat take his medications will check his labs tomorrow making adjustments as needed as per infectious disease podiatry and surgery
--- NOTE | 2016-09-15 23:28 | CP.PCM.DIS ---
Provider - Provider Attending physician: Tank Kuhn MD Time Spent in preparation of Discharge (in minutes): 20 Hospital Course - Hospital Course Hospital Course: He was in the hospital for bilateral feet cellulitis and ulcers basal cell carcinoma of his back which was surgically removed was on IV antibiotics to be changed to tablets now he was seen by podiatry infectious disease and surgery he did very well history of severe osteoarthritis of the right hip will follow up with orthopedics on an outpatient will call Dr. Vazquez for house call hopefully he will improve Discharge Exam - Head Exam Head Exam: NORMAL INSPECTION - Eye Exam Eye Exam: Normal appearance - ENT Exam ENT Exam: Mucous Membranes Moist - Respiratory Exam Respiratory Exam: Clear to PA & Lateral, NORMAL BREATHING PATTERN - Cardiovascular Exam Cardiovascular Exam: REGULAR RHYTHM - GI/Abdominal Exam GI & Abdominal Exam: Normal Bowel Sounds, Soft - Extremities Exam Additional comments: Bilateral lower extremities are wrapped in bandages for cellulitis and ulcers - Neurological Exam Neurological exam: Abnormal Gait Discharge Plan - Follow Up Plan Condition: GOOD Disposition: TRANSF TO SNF Additional Instructions: He will be followed up on house call in a week he will take the antibiotics he will continue with good skin care will get visiting nurse to see him at home
--- NOTE | 2016-09-27 17:00 | PCM.OP ---
Operative Report - Operative Report Date of Surgery/Procedure: 09/11/16 Surgeon: Dr. Kuhn Assembly Technician: Asst. Dr. Quinonez Anesthesia/Sedation: Local Pre-Operative Diagnosis: basal cell carcinoma of the back Post-Operative Diagnosis: basal cell carcinoma of the back Indication for Surgery: basal cell carcinoma of the back Procedure/Operation Description: Wide and deep excision with a split thickness graft with advancement flaps on either side. After the time out, the back and thigh were prepped and draped with the usual manner. And elipse was designed in the back, with margins in all directions. It was noted that the lateral side of the back there was an area of healing and regeneration and this was included. The elipse through the prepped and draped area was taken down through the skin and the elipse was excised using cautery. It was removed to good margins in all directions. No visible tumor was seen. This was marked with a superior stitch of silk and sent fresh to the lab. Margins laterally and medially were identified by a sharp blunt and cautery dissection. The areas were then closed, somewhat using these advancement flaps. The edges were approximated with Vicryl and then sutured to the skin. Hemostasis was achieved with cautery as necessary. Skin was harvested that was meshed 1-3. It was taken on an adaptic and placed on the defect. It was sutured circumfrentially and using an adaptic the bolus of wet cottonoids were placed and sutures of Vicryl were used to hold it down. Approx 12 of these were placed. Light pressure dressing was obtained. The donor site which had been harvested 15 thousandths of an inch and tested was examined and treated with a dry strobe. Zero form gauze and a light dressing was applied Estimated Blood Loss: Minimal Complications: None Discharge & Condition: The pt was then taken to recovery room in good condition.
== END 2016-09-11 12:00 ==
LOC: SDS 07:49
PROVIDERS: ATTEND Surgery
DX: C44.519 Basal cell carcinoma of skin of other part of trunk (principal); L03.116 Cellulitis of left lower limb; L03.115 Cellulitis of right lower limb; L97.529 Non-pressure chronic ulcer of other part of left foot with unspecified severity; L97.519 Non-pressure chronic ulcer of other part of right foot with unspecified severity; M16.11 Unilateral primary osteoarthritis, right hip
CPT/HCPCS: 14000; 15100; 88305; C1762; J0690; J1170; J7120 ×2

== ENCOUNTER 2016-09-17 17:29 | Inpatient (IN) | payer MEDICARE ==
[2016-09-17 17:29] VITALS: BMI 29.7
--- NOTE | 2016-09-17 18:54 | ED PDOC ---
Arrival/HPI <Cate Jackman - Last Filed: 09/17/16 21:41> - General Historian: Patient <Gerda Dangelo PA-C - Last Filed: 09/18/16 02:19> - General Chief Complaint: Abnormal Skin Integrity Time Seen by Provider: 09/17/16 17:36 - History of Present Illness Narrative History of Present Illness (Text): 09/17/16 18:57 66-year-old male presents to the emergency room status post basal cell carcinoma removal and skin graft placement from his mid back on 09/11, was discharged from the hospital on 09/15, is here today due to bleeding from the site. Otherwise the patient has no other complaints, denies fever, chills, chest pain, shortness of breath, discharge from the wound. States that he has a follow-up appointment with Dr. Kuhn on September 25. PMD Vazquez Surgeon Bam (Gerda Dangelo PA-C) Past Medical History - Provider Review Nursing Documentation Reviewed: Yes - Infectious Disease Hx of Infectious Diseases: None - Tetanus Immunization Tetanus Immunization: Unknown - Cardiac Hx Hypertension: Yes Hx Pacemaker: No - Pulmonary Hx Respiratory Disorders: No - Neurological Hx Neurological Disorder: No - HEENT Hx HEENT Disorder: No - Renal Hx Renal Disorder: No - Endocrine/Metabolic Hx Endocrine Disorders: No - Hematological/Oncological Hx Blood Transfusions: No - Integumentary Hx Basal Cell Carcinoma: Yes (on his back) Other/Comment: actinic keratosis - Musculoskeletal/Rheumatological Hx Musculoskeletal Disorders: Yes (OSTEOARTHRITIS) - Gastrointestinal Hx Gastrointestinal Disorders: No - Genitourinary/Gynecological Hx Reproductive Disorders: No - Psychiatric Hx Emotional Abuse: No Hx Physical Abuse: No Hx Substance Use: No - Surgical History Other/Comment: Skin graft on back - Anesthesia Hx Anesthesia Reactions: No Hx Malignant Hyperthermia: No - Suicidal Assessment Feels Threatened In Home Enviroment: No <Gerda Dangelo PA-C - Last Filed: 09/18/16 02:19> Family/Social History - Physician Review Nursing Documentation Reviewed: Yes Family/Social History: No Known Family HX Smoking Status: Former Smoker Hx Alcohol Use: No Hx Substance Use: No <Gerda Dangelo PA-C - Last Filed: 09/18/16 02:19> Allergies/Home Meds <Cate Jackman - Last Filed: 09/17/16 21:41> <Gerda Dangelo PA-C - Last Filed: 09/18/16 02:19> Allergies/Adverse Reactions: Allergies No Known Allergies Allergy (Verified 09/17/16 17:37) Home Medications: Home Meds Medication Instructions Recorded Confirmed Acetaminophen [Pain Relief] 650 mg PO Q4 PRN 09/06/16 09/17/16 Review of Systems - Review of Systems Constitutional: Normal. absent: Fatigue, Weight Change, Fevers Respiratory: Normal. absent: SOB, Cough, Sputum Cardiovascular: Normal. absent: Chest Pain, Palpitations Musculoskeletal: Normal. absent: Arthralgias, Back Pain, Neck Pain Skin: Normal, Skin Lesions (h/o basal cell carcinoma, s/p surgical removal and skin graft placement). absent: Rash, Pruritis <Gerda Dangelo PA-C - Last Filed: 09/18/16 02:19> Physical Exam Vital Signs Reviewed: Yes Temperature: Afebrile Blood Pressure: Normal Pulse: Regular Respiratory Rate: Normal Appearance: Positive for: Well-Appearing, Non-Toxic, Comfortable Pain Distress: None Mental Status: Positive for: Alert and Oriented X 3 - Systems Exam Head: Present: Atraumatic, Normocephalic Neck: Present: Normal Range of Motion. No: MIDLINE TENDERNESS Respiratory/Chest: Present: Clear to Auscultation, Good Air Exchange. No: Respiratory Distress, Accessory Muscle Use, Wheezes, Rhonchi Cardiovascular: Present: Regular Rate and Rhythm, Normal S1, S2. No: Murmurs Back: Present: Other ((+) large sutured skin graft ~7 cm in size to the center of the mid back with minimal active slow bleeding, (-) d/c, (-) tenderness to touch, (+) possible surrounding palpable hematoma ). No: Midline Tenderness, Paraspinal Tenderness Upper Extremity: Present: Normal Inspection, Normal ROM. No: Edema Lower Extremity: Present: Normal Inspection, Normal ROM. No: Edema Neurological: Present: GCS=15, CN II-XII Intact Skin: Present: Warm, Dry. No: Rashes Psychiatric: Present: Alert, Oriented x 3 <Gerda Dangelo PA-C - Last Filed: 09/18/16 02:19> Vital Signs Temp Pulse Resp BP Pulse Ox 09/17/16 22:38 65 19 117/77 97 09/17/16 17:38 98.4 F 86 16 140/88 97 Medical Decision Making <Cate Jackman - Last Filed: 09/17/16 21:41> - Lab Interpretations I have reviewed the lab results: Yes (WBC 12, K 3.5) <Gerda Dangelo PA-C - Last Filed: 09/18/16 02:19> ED Course and Treatment: 09/17/16 18:51 66-year-old male presents to the emergency room status post basal cell carcinoma removal and skin graft placement from his mid back on 09/11, was discharged from the hospital on 09/15, is here today due to bleeding from the site. Consult placed to surgical instruments inspector and case discussed with Dr. Andrea Cyr, who will evaluate the patient. Patient seen and evaluated by surgical instruments inspector, disposition pending as per resident who is waiting on consult from Dr. Kuhn. 09/17/16 21:08 On re-evaluation, hematoma has increased in size since initial evaluation and surgical instruments inspector confirms this as well. Unable to reach Dr. Kuhn at this time. Call placed to Dr. Vazquez. Labs ordered. Case d/w Dr. Vazquez agrees with plan for inpt obs and evaluation by Dr. Kuhn in the AM. financial institution president Dr. Ashley Cyr notified of plan of care. (Gerda Dangelo PA-C) - Medication Orders Current Medication Orders: Amlodipine Besylate (Norvasc) 5 mg PO DAILY [facility] Sodium Chloride (Sodium Chloride 0.45%) 1,000 mls @ 30 mls/hr IV .Q24H [facility] Last Admin: 09/18/16 01:30 Dose: 30 mls/hr Ketorolac Tromethamine (Toradol) 30 mg IVP Q6H PRN PRN Reason: Pain, moderate (4-7) Last Admin: 09/18/16 01:33 Dose: 30 mg Tramadol HCl (Ultram) 50 mg PO TID [facility] Discontinued Medications Acetaminophen (Tylenol 325mg Tab) 975 mg PO STAT STA Stop: 09/17/16 19:14 Last Admin: 09/17/16 19:38 Dose: 975 mg Ketorolac Tromethamine (Toradol) 30 mg IVP Q6H [facility] - PA / PIT RECORDER / Resident Statement PHILIPPE has reviewed & agrees with the documentation as recorded. PHILIPPE has examined the patient and agrees with the treatment plan. <Cate Jackman - Last Filed: 09/17/16 21:41> - PA / PIT RECORDER / Resident Statement PHILIPPE has reviewed & agrees with the documentation as recorded. <Gerda Dangelo PA-C - Last Filed: 09/18/16 02:19> Disposition/Present on Arrival <Cate Jackman - Last Filed: 09/17/16 21:41> - Present on Arrival Any Indicators Present on Arrival: No History of DVT/PE: No History of Uncontrolled Diabetes: No Urinary Catheter: No History of Decub. Ulcer: No History Surgical Site Infection Following: None - Disposition Have Diagnosis and Disposition been Completed?: Yes Disposition Time: 21:00 Patient Plan: Observation (inpt observation) <Gerda Dangelo PA-C - Last Filed: 09/18/16 02:19> - Disposition Diagnosis: Hematoma, Status post skin graft Disposition: HOSPITALIZED Patient Problems: Current Active Problems Problem Status Onset Hematoma Acute Status post skin graft Acute Condition: STABLE
[2016-09-17 22:50] LABS: BASO # 0.03 K/mm3 (0.0-2.0); BASO % 0.2 % (0.0-3.0); EOS # 0.3 (0.0-0.7); EOS % 2.5 % (1.5-5.0); GRAN # 8.29 (1.4-6.5); GRAN % 68.5 % (50.0-68.0); LYMPH # 2.7 (1.2-3.4); LYMPH % 22.4 % (22.0-35.0); MEAN CELL VOLUME 93.7 fL (80.0-105.0); MEAN CORPUSCULAR HEMOGLOBIN 31.6 pg (25.0-35.0); MEAN CORPUSCULAR HGB CONC 33.7 g/dl (31.0-37.0); MEAN PLATELET VOLUME 10.6 fl (7.0-11.0); MONO # 0.8 (0.1-0.6); MONO % 6.4 % (1.0-6.0); PLATELET COUNT 244 10^3/uL (120.0-450.0); RED CELL DISTRIBUTION WIDTH 12.4 % (11.5-14.5); WHITE BLOOD COUNT 12.1 10^3/ul (4.5-11.0)
[2016-09-17 22:56] LABS: INR 1.11 (0.93-1.08); PARTIAL THROMBOPLASTIN TIME 30.7 Seconds (23.7-30.8)
[2016-09-17 22:57] LABS: ALB/GLOB RATIO 1.3 (1.1-1.8); ALBUMIN 3.7 g/dL (3.0-4.8); AST/SGOT 30 U/L (15-59); BLOOD UREA NITROGEN 21 mg/dL (7-21); CALCIUM 8.8 mg/dL (8.4-10.5); GFR AFRICAN-AMERICAN > 60; GFR NON-AFRICAN AMERICAN > 60
[2016-09-17 23:13] LABS: ALT/SGPT 39 U/L (7-56)
[2016-09-18] MEDS ORDERED: Sodium Chloride 0.45% 1,000 ML IV SCH ×2 (00:15→06:19)
[2016-09-18] MEDS ORDERED: Morphine 2 mg/ml ISec IM PRN (02:28)
--- NOTE | 2016-09-18 03:26 | CP.PCM.CON ---
History of Present Illness - History of Present Illness History of Present Illness: Surgery consult for Dr. Kuhn 66-year-old male w pmh of Celulitis presents to the emergency room status post basal cell carcinoma removal and skin graft placement on his mid back on 09/11/16 , was discharged from the hospital on 09/15, is here today due to bleeding from the site. Pt has had basal cell CA for a long time and it has been this size for about 1 year. Biopsy showed basal cell carcinoma and he was told to get it removed, but he postponed seeing anyone about it. Pt did not follow up with Dr. Kuhn yet and was scheduled to see him on 09/25. Yesterday pt hit his back on a back seat of the car and the area started to bleed. Area become swollen and is tender. Donor site is healing well. Pt takes aspirin for pain, denies taking anticoagulation. Pt Otherwise the patient has no other complaints, denies fever , chills, chest pain, shortness of breath, discharge from the wound. PMH: HTN, actinic keratosis, arthritis PSH: Denies SH: Former smoker All: NKDA Meds: See MAY. Aspirin for pain. no anticoagulation PMD Vazquez Review of Systems - Review of Systems Review of Systems: See HPI Past Patient History - Infectious Disease Hx of Infectious Diseases: None - Tetanus Immunizations Tetanus Immunization: Unknown - Past Social History Smoking Status: Former Smoker - CARDIAC Hx Hypertension: Yes Hx Pacemaker: No - PULMONARY Hx Respiratory Disorders: No - NEUROLOGICAL Hx Neurological Disorder: No - HEENT Hx HEENT Problems: No - RENAL Hx Chronic Kidney Disease: No - ENDOCRINE/METABOLIC Hx Endocrine Disorders: No - HEMATOLOGICAL/ONCOLOGICAL Hx Blood Transfusions: No - INTEGUMENTARY 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) Other/Comment: actinic keratosis - MUSCULOSKELETAL/RHEUMATOLOGICAL Hx Musculoskeletal Disorders: Yes (OSTEOARTHRITIS) - GASTROINTESTINAL Hx Gastrointestinal Disorders: No - GENITOURINARY/GYNECOLOGICAL Hx Reproductive Disorders: No - PSYCHIATRIC Hx Emotional Abuse: No Hx Physical Abuse: No Hx Substance Use: No - SURGICAL HISTORY Other/Comment: Skin graft on back - ANESTHESIA Hx Anesthesia Reactions: No Hx Malignant Hyperthermia: No Meds Allergies/Adverse Reactions: Allergies Allergy/AdvReac Type Severity Reaction Status Date / Time No Known Allergies Allergy Verified 09/17/16 17:37 - Medications Medications: Current Medications Amlodipine Besylate (Norvasc) 5 mg PO DAILY [facility] Sodium Chloride (Sodium Chloride 0.45%) 1,000 mls @ 30 mls/hr IV .Q24H [facility] Last Admin: 09/18/16 01:30 Dose: 30 mls/hr Ketorolac Tromethamine (Toradol) 30 mg IVP Q6H PRN PRN Reason: Pain, moderate (4-7) Last Admin: 09/18/16 01:33 Dose: 30 mg Morphine Sulfate (Morphine) 2 mg IM Q4H PRN PRN Reason: Pain, moderate (4-7) Tramadol HCl (Ultram) 50 mg PO TID [facility] Physical Exam - Constitutional Appears: Non-toxic - Head Exam Head Exam: ATRAUMATIC, NORMAL INSPECTION, NORMOCEPHALIC - Eye Exam Eye Exam: EOMI, Normal appearance, PERRL Pupil Exam: NORMAL ACCOMODATION, PERRL - ENT Exam ENT Exam: Mucous Membranes Moist, Normal Exam - Neck Exam Neck exam: Positive for: Normal Inspection - Respiratory Exam Respiratory Exam: Clear to Auscultation Bilateral, NORMAL BREATHING PATTERN - Cardiovascular Exam Cardiovascular Exam: REGULAR RHYTHM - GI/Abdominal Exam GI & Abdominal Exam: Normal Bowel Sounds, Soft. absent: Tenderness - Extremities Exam Additional comments: R thight donor site healing well. Dressing changed. C/D/I - Back Exam Back exam: FULL ROM Additional comments: upper back has large growing hematoma 20 x20 cm. Erythema.multiple sutures in place. Dressing saturated with blood. TTP. - Neurological Exam Neurological exam: Alert, CN II-XII Intact, Normal Gait, Oriented x3, Reflexes Normal - Psychiatric Exam Psychiatric exam: Normal Affect, Normal Mood - Skin Skin Exam: Erythema, Warm Results - Vital Signs Recent Vital Signs: Last Vital Signs Temp 98.4 F 09/17/16 17:38 Pulse 65 09/17/16 22:38 Resp 19 09/17/16 22:38 BP 117/77 09/17/16 22:38 Pulse Ox 97 09/17/16 22:38 - Labs Result Diagrams: 09/17/16 22:30 09/17/16 22:30 Labs: Laboratory Results - last 24 hr 09/17/16 09/17/16 09/17/16 22:30 22:30 22:30 WBC 12.1 H RBC 3.80 Hgb 12.0 L Hct 35.6 L MCV 93.7 MCH 31.6 MCHC 33.7 RDW 12.4 Plt Count 244 MPV 10.6 Gran % 68.5 H Lymph % (Auto) 22.4 Steele % (Auto) 6.4 H Eos % (Auto) 2.5 Baso % (Auto) 0.2 Gran # 8.29 H Lymph # 2.7 Steele # 0.8 H Eos # 0.3 Baso # 0.03 PT 12.0 H INR 1.11 H APTT 30.7 Sodium 135 Potassium 3.5 L Chloride 98 Carbon Dioxide 28 Anion Gap 13 BUN 21 Creatinine 1.0 Est GFR ( Amer) > 60 Est GFR (Non-Af Amer) > 60 Random Glucose 100 Calcium 8.8 Total Bilirubin 0.8 AST 30 ALT 39 Alkaline Phosphatase 88 Total Protein 6.6 Albumin 3.7 Globulin 2.9 Albumin/Globulin Ratio 1.3 Assessment & Plan - Assessment and Plan (Free Text) Assessment: Bleeding and hematoma s/p basal cell excision and skin graft -Likely OR to drain hematoma -Monitor H/H -NPO -Dressing change PRN Will STEPHEN Kuhn
[2016-09-18 07:36] LABS: HEMOGLOBIN 11.4 gm/dL (14.0-18.0); MEAN CELL VOLUME 93.8 fL (80.0-105.0); MEAN CORPUSCULAR HEMOGLOBIN 30.9 pg (25.0-35.0); MEAN CORPUSCULAR HGB CONC 32.9 g/dl (31.0-37.0); MEAN PLATELET VOLUME 10.2 fl (7.0-11.0); RBC 3.69 10^6/uL (3.5-6.1); RED CELL DISTRIBUTION WIDTH 12.4 % (11.5-14.5)
[2016-09-18 08:06] LABS: ALB/GLOB RATIO 1.3 (1.1-1.8); ALBUMIN 3.3 g/dL (3.0-4.8); ALT/SGPT 28 U/L (7-56); AST/SGOT 31 U/L (15-59); BLOOD UREA NITROGEN 14 mg/dL (7-21); CALCIUM 8.4 mg/dL (8.4-10.5); GFR AFRICAN-AMERICAN > 60; GFR NON-AFRICAN AMERICAN > 60
--- NOTE | 2016-09-18 08:28 | CP.PCM.HP ---
History of Present Illness - History of Present Illness History of Present Illness: 66 y/o w/m w/ recent hx of cellulitis of both lower extremities and also large basal cell cancer removal on skin graft and then last night w/ bleeding and swelling and was admitted to the hospital Present on Admission - Present on Admission Any Indicators Present on Admission: Yes History of DVT/PE: No History of Uncontrolled Diabetes: No Urinary Catheter: No Decubitus Ulcer Present: Yes (s/p back larg removal of basal ceel ca w/ a skin graft w/ bleeding) Decubitus Ulcer Stage: II Review of Systems - Review of Systems All systems: reviewed and no additional remarkable complaints except Review of Systems: back bleeding - Musculoskeletal Additional comments: rt hip pain - Integumentary Additional comments: s/p basal cell ca removal w/ skin graft and now bleeding hematoma?? Past Patient History - Infectious Disease Hx of Infectious Diseases: None - Tetanus Immunizations Tetanus Immunization: Unknown - Past Social History Smoking Status: Former Smoker - CARDIAC Hx Hypertension: Yes Hx Pacemaker: No - PULMONARY Hx Respiratory Disorders: No - NEUROLOGICAL Hx Neurological Disorder: No - HEENT Hx HEENT Problems: No - RENAL Hx Chronic Kidney Disease: No - ENDOCRINE/METABOLIC Hx Endocrine Disorders: No - HEMATOLOGICAL/ONCOLOGICAL Hx Blood Transfusions: No - INTEGUMENTARY 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) Other/Comment: actinic keratosis - MUSCULOSKELETAL/RHEUMATOLOGICAL Hx Musculoskeletal Disorders: Yes (OSTEOARTHRITIS) - GASTROINTESTINAL Hx Gastrointestinal Disorders: No - GENITOURINARY/GYNECOLOGICAL Hx Reproductive Disorders: No - PSYCHIATRIC Hx Emotional Abuse: No Hx Physical Abuse: No Hx Substance Use: No - SURGICAL HISTORY Other/Comment: Skin graft on back - ANESTHESIA Hx Anesthesia Reactions: No Hx Malignant Hyperthermia: No Meds Allergies/Adverse Reactions: Allergies Allergy/AdvReac Type Severity Reaction Status Date / Time No Known Allergies Allergy Verified 09/17/16 17:37 Physical Exam - Constitutional Appears: In Acute Distress - Head Exam Head Exam: ATRAUMATIC, NORMAL INSPECTION, NORMOCEPHALIC - Eye Exam Eye Exam: Normal appearance - ENT Exam ENT Exam: Mucous Membranes Moist - Respiratory Exam Respiratory Exam: Clear to Auscultation Bilateral, NORMAL BREATHING PATTERN - Cardiovascular Exam Cardiovascular Exam: REGULAR RHYTHM - GI/Abdominal Exam GI & Abdominal Exam: Normal Bowel Sounds, Soft - Extremities Exam Additional comments: rt hip oa - Back Exam Additional comments: back is bandaged w/ a bleed hematoma s/p basal cell removal - Neurological Exam Neurological exam: Alert, CN II-XII Intact, Oriented x3 - Psychiatric Exam Psychiatric exam: Normal Affect, Normal Mood - Skin Skin Exam: Warm Additional comments: skin on back bleeding Results - Vital Signs Recent Vital Signs: Last Vital Signs Temp 98.3 F 09/18/16 02:02 Pulse 71 09/18/16 02:02 Resp 16 09/18/16 02:02 BP 127/74 09/18/16 02:02 Pulse Ox 97 09/17/16 22:38 - Labs Result Diagrams: 09/18/16 07:00 09/18/16 07:00 Labs: Laboratory Results - last 24 hr 09/17/16 09/17/16 09/17/16 22:30 22:30 22:30 WBC 12.1 H RBC 3.80 Hgb 12.0 L Hct 35.6 L MCV 93.7 MCH 31.6 MCHC 33.7 RDW 12.4 Plt Count 244 MPV 10.6 Gran % 68.5 H Lymph % (Auto) 22.4 Dundy % (Auto) 6.4 H Eos % (Auto) 2.5 Baso % (Auto) 0.2 Gran # 8.29 H Lymph # 2.7 Dundy # 0.8 H Eos # 0.3 Baso # 0.03 PT 12.0 H INR 1.11 H APTT 30.7 Sodium 135 Potassium 3.5 L Chloride 98 Carbon Dioxide 28 Anion Gap 13 BUN 21 Creatinine 1.0 Est GFR ( Amer) > 60 Est GFR (Non-Af Amer) > 60 Random Glucose 100 Calcium 8.8 Total Bilirubin 0.8 AST 30 ALT 39 Alkaline Phosphatase 88 Total Protein 6.6 Albumin 3.7 Globulin 2.9 Albumin/Globulin Ratio 1.3 09/18/16 09/18/16 07:00 07:00 WBC 8.0 D RBC 3.69 Hgb 11.4 L Hct 34.6 L MCV 93.8 MCH 30.9 MCHC 32.9 RDW 12.4 Plt Count 196 MPV 10.2 Gran % Lymph % (Auto) Dundy % (Auto) Eos % (Auto) Baso % (Auto) Gran # Lymph # Dundy # Eos # Baso # PT INR APTT Sodium 137 Potassium 3.7 Chloride 104 Carbon Dioxide 27 Anion Gap 10 BUN 14 Creatinine 0.8 Est GFR ( Amer) > 60 Est GFR (Non-Af Amer) > 60 Random Glucose 90 Calcium 8.4 Total Bilirubin 0.8 AST 31 ALT 28 Alkaline Phosphatase 80 Total Protein 5.9 Albumin 3.3 Globulin 2.6 Albumin/Globulin Ratio 1.3 Assessment & Plan - Assessment and Plan (Free Text) Assessment: hematoma back s/p basal cell ca removal and skin graft s/p cellulitis oa rt hip htn Plan: iv fluids surgery eval for i and d of bleed and hematoma may need another night or 2 in the hospital and if so to change to admission checking labs meds tests as per surgery iv abs
[2016-09-18] MEDS ORDERED: cefTRIAXone 1 gm 1 GM/100 ML BAG IVPB SCH (10:00)
--- NOTE | 2016-09-18 11:56 | CP.PCM.CON ---
History of Present Illness - History of Present Illness History of Present Illness: back hematoma Past Patient History - Infectious Disease Hx of Infectious Diseases: None - Tetanus Immunizations Tetanus Immunization: Unknown - Past Medical History & Family History Past Medical History?: Yes - Past Social History Smoking Status: Former Smoker - CARDIAC Hx Hypertension: Yes Hx Pacemaker: No - PULMONARY Hx Respiratory Disorders: No - NEUROLOGICAL Hx Neurological Disorder: No - HEENT Hx HEENT Problems: No - RENAL Hx Chronic Kidney Disease: No - ENDOCRINE/METABOLIC Hx Endocrine Disorders: No - HEMATOLOGICAL/ONCOLOGICAL Hx Blood Transfusions: No - INTEGUMENTARY 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) Other/Comment: actinic keratosis - MUSCULOSKELETAL/RHEUMATOLOGICAL Hx Musculoskeletal Disorders: Yes (OSTEOARTHRITIS) - GASTROINTESTINAL Hx Gastrointestinal Disorders: No - GENITOURINARY/GYNECOLOGICAL Hx Reproductive Disorders: No - PSYCHIATRIC Hx Emotional Abuse: No Hx Physical Abuse: No Hx Substance Use: No - SURGICAL HISTORY Other/Comment: Skin graft on back - ANESTHESIA Hx Anesthesia Reactions: No Hx Malignant Hyperthermia: No Meds Allergies/Adverse Reactions: Allergies Allergy/AdvReac Type Severity Reaction Status Date / Time No Known Allergies Allergy Verified 09/17/16 17:37 - Medications Medications: Current Medications Amlodipine Besylate (Norvasc) 5 mg PO DAILY [facility] Last Admin: 09/18/16 10:16 Dose: 5 mg Sodium Chloride (Sodium Chloride 0.45%) 1,000 mls @ 150 mls/hr IV .Q6H40M [facility] Meropenem 1g/NS 100mL IVPB (Meropenem 1g/Ns 100ml Ivpb) 1 gm in 100 mls @ 100 mls/hr IVPB Q8 [facility] PRN Reason: Protocol Stop: 09/27/16 14:01 Vancomycin HCl (Vancomycin 1gm) 1 gm in 250 mls @ 167 mls/hr IVPB Q12H [facility] PRN Reason: Protocol Stop: 09/27/16 11:46 Ketorolac Tromethamine (Toradol) 30 mg IVP Q6H PRN PRN Reason: Pain, moderate (4-7) Last Admin: 09/18/16 01:33 Dose: 30 mg Morphine Sulfate (Morphine) 2 mg IM Q4H PRN PRN Reason: Pain, moderate (4-7) Tramadol HCl (Ultram) 50 mg PO TID [facility] Last Admin: 09/18/16 10:16 Dose: 50 mg Physical Exam - Constitutional Appears: Well (LARGE HEMATOMA OF THE BACK) - Head Exam Head Exam: ATRAUMATIC, NORMAL INSPECTION, NORMOCEPHALIC - Eye Exam Eye Exam: EOMI, Normal appearance, PERRL Pupil Exam: NORMAL ACCOMODATION, PERRL - ENT Exam ENT Exam: Mucous Membranes Moist, Normal Exam - Neck Exam Neck exam: Positive for: Normal Inspection - Respiratory Exam Respiratory Exam: Clear to Auscultation Bilateral, NORMAL BREATHING PATTERN - Cardiovascular Exam Cardiovascular Exam: REGULAR RHYTHM - GI/Abdominal Exam GI & Abdominal Exam: Normal Bowel Sounds, Soft. absent: Tenderness - Rectal Exam Rectal Exam: NORMAL INSPECTION - Exam Exam: Circumcision, NORMAL INSPECTION External exam: NORMAL EXTERNAL EXAM Speculum exam: NORMAL SPECULUM EXAM Bimanual exam: NORMAL BIMANUAL EXAM - Extremities Exam Extremities exam: Positive for: normal inspection - Back Exam Back exam: NORMAL INSPECTION - Neurological Exam Neurological exam: Alert, CN II-XII Intact, Normal Gait, Oriented x3, Reflexes Normal - Psychiatric Exam Psychiatric exam: Normal Affect, Normal Mood - Skin Skin Exam: Dry, Intact, Normal Color, Warm Results - Vital Signs Recent Vital Signs: Last Vital Signs Temp 98 F 09/18/16 08:52 Pulse 60 09/18/16 10:16 Resp 20 09/18/16 08:52 BP 118/63 09/18/16 10:16 Pulse Ox 97 09/18/16 08:52 - Labs Result Diagrams: 09/18/16 07:00 09/18/16 07:00 Labs: Laboratory Results - last 24 hr 09/17/16 09/17/16 09/17/16 22:30 22:30 22:30 WBC 12.1 H RBC 3.80 Hgb 12.0 L Hct 35.6 L MCV 93.7 MCH 31.6 MCHC 33.7 RDW 12.4 Plt Count 244 MPV 10.6 Gran % 68.5 H Lymph % (Auto) 22.4 [place] % (Auto) 6.4 H Eos % (Auto) 2.5 Baso % (Auto) 0.2 Gran # 8.29 H Lymph # 2.7 [place] # 0.8 H Eos # 0.3 Baso # 0.03 PT 12.0 H INR 1.11 H APTT 30.7 Sodium 135 Potassium 3.5 L Chloride 98 Carbon Dioxide 28 Anion Gap 13 BUN 21 Creatinine 1.0 Est GFR ( Amer) > 60 Est GFR (Non-Af Amer) > 60 Random Glucose 100 Calcium 8.8 Total Bilirubin 0.8 AST 30 ALT 39 Alkaline Phosphatase 88 Total Protein 6.6 Albumin 3.7 Globulin 2.9 Albumin/Globulin Ratio 1.3 09/18/16 09/18/16 07:00 07:00 WBC 8.0 D RBC 3.69 Hgb 11.4 L Hct 34.6 L MCV 93.8 MCH 30.9 MCHC 32.9 RDW 12.4 Plt Count 196 MPV 10.2 Gran % Lymph % (Auto) [place] % (Auto) Eos % (Auto) Baso % (Auto) Gran # Lymph # [place] # Eos # Baso # PT INR APTT Sodium 137 Potassium 3.7 Chloride 104 Carbon Dioxide 27 Anion Gap 10 BUN 14 Creatinine 0.8 Est GFR ( Amer) > 60 Est GFR (Non-Af Amer) > 60 Random Glucose 90 Calcium 8.4 Total Bilirubin 0.8 AST 31 ALT 28 Alkaline Phosphatase 80 Total Protein 5.9 Albumin 3.3 Globulin 2.6 Albumin/Globulin Ratio 1.3 Assessment & Plan (1) Hematoma Status: Acute (2) Hematoma Status: Acute (3) Status post skin graft Status: Acute (4) Cellulitis Status: Acute (5) Cellulitis, leg Status: Acute (6) Venous stasis dermatitis of both lower extremities Status: Acute - Assessment and Plan (Free Text) Assessment: MARJAN ZAPATA PENDING SX AND CULT - Date & Time Date: 09/18/16 Time: 11:55
[2016-09-18] MEDS: Vancomycin 1gm in NS 250ml 1 GM/250 ML BAG IVPB SCH ×2 (12:52→22:52)
[2016-09-18] MEDS ORDERED: Propofol 10 mg/ml Inj (20 ML) ONE ×3 (13:47→14:10)
[2016-09-18] MEDS ORDERED: Succinylcholine 200 mg/10 ml Inj IV ONE ×2 (13:47→13:48)
[2016-09-18] MEDS ORDERED: Midazolam 2 MG/2 ML VIAL ONE (13:47)
[2016-09-18] MEDS ORDERED: Meropenem 1g/NS 100mL IVPB 1 GM/100 ML PIGGYBACK IVPB SCH (14:00)
[2016-09-18] MEDS ORDERED: Lidocaine 1% Inj (20ml) ONE (14:06)
[2016-09-18] MEDS ORDERED: Bupivacaine 0.5% Inj(30mL) ONE (14:06)
[2016-09-18] MEDS ORDERED: Lactated Ringer's 1,000 ML IV SCH (14:55)
[2016-09-18] MEDS ORDERED: HYDROmorphone 0.5 mg/0.5 ml ISec IVP PRN (14:55)
--- NOTE | 2016-09-18 14:55 | PCM.SURG1 ---
Surgeon's Initial Post Op Note - Surgeon's Notes Surgeon: Dr. Kuhn Public Relations Counselor: Dr. De Luna PGY2, Dr. Baker PGY1 Type of Anesthesia: MAC Pre-Operative Diagnosis: Hematoma on back Operative Findings: see dictation Post-Operative Diagnosis: Same Operation Performed: evacuation of hematoma and wound vac placement Specimen/Specimens Removed: wound culture Estimated Blood Loss: EBL {In ML}: 5 Blood Products Given: N/A Drains Used: Wound Vac Post-Op Condition: Good Date of Surgery/Procedure: 09/18/16 Time of Surgery/Procedure: 14:54
[2016-09-19 07:03] LABS: HEMOGLOBIN 12.2 gm/dL (14.0-18.0); MEAN CELL VOLUME 94.4 fL (80.0-105.0); MEAN CORPUSCULAR HEMOGLOBIN 31.3 pg (25.0-35.0); MEAN CORPUSCULAR HGB CONC 33.2 g/dl (31.0-37.0); MEAN PLATELET VOLUME 10.8 fl (7.0-11.0); RBC 3.9 10^6/uL (3.5-6.1); RED CELL DISTRIBUTION WIDTH 12.7 % (11.5-14.5); WHITE BLOOD COUNT 11.1 10^3/ul (4.5-11.0)
[2016-09-19 07:20] LABS: ALB/GLOB RATIO 1.3 (1.1-1.8); ALT/SGPT 35 U/L (7-56); AST/SGOT 45 U/L (15-59); BLOOD UREA NITROGEN 15 mg/dL (7-21); CALCIUM 8.8 mg/dL (8.4-10.5); GFR AFRICAN-AMERICAN > 60; GFR NON-AFRICAN AMERICAN > 60
--- NOTE | 2016-09-19 08:45 | CP.PCM.PN ---
Subjective - Date & Time of Evaluation Date of Evaluation: 09/19/16 Time of Evaluation: 07:44 - Subjective Subjective: PT S&E at beside. DESTINY. Dressings to be changed at beside with Dr. Kuhn. Wound vac intact. Dressing c/d/i no erythema, drainage, induration. Patient denies F/C, back pain, N/V. Objective - Vital Signs/Intake and Output Vital Signs (last 24 hours): Temp Pulse Resp BP Pulse Ox 98.6 F 68 20 129/63 97 09/18/16 16:00 09/18/16 16:00 09/18/16 16:00 09/18/16 16:00 09/18/16 16:00 Intake and Output: 09/19/16 09/19/16 06:59 18:59 Intake Total 540 120 Output Total 600 Balance -60 120 - Medications Medications: Current Medications Amlodipine Besylate (Norvasc) 5 mg PO DAILY [facility] Last Admin: 09/18/16 10:16 Dose: 5 mg Hydromorphone HCl (Dilaudid) 0.5 mg IVP Q15M PRN PRN Reason: Pain, moderate (4-7) Meropenem 1g/NS 100mL IVPB (Meropenem 1g/Ns 100ml Ivpb) 1 gm in 100 mls @ 100 mls/hr IVPB Q8 [facility] PRN Reason: Protocol Stop: 09/27/16 14:01 Last Admin: 09/18/16 14:24 Dose: Not Given Vancomycin HCl (Vancomycin 1gm) 1 gm in 250 mls @ 167 mls/hr IVPB Q12H [facility] PRN Reason: Protocol Stop: 09/27/16 11:46 Last Admin: 09/18/16 22:52 Dose: 167 mls/hr Ketorolac Tromethamine (Toradol) 30 mg IVP Q6H PRN PRN Reason: Pain, moderate (4-7) Last Admin: 09/18/16 01:33 Dose: 30 mg Morphine Sulfate (Morphine) 2 mg IM Q4H PRN PRN Reason: Pain, moderate (4-7) Last Admin: 09/19/16 01:26 Dose: 2 mg Tramadol HCl (Ultram) 50 mg PO TID [facility] Last Admin: 09/18/16 18:08 Dose: 50 mg - Labs Labs: 09/19/16 06:30 09/19/16 06:30 PT 12.0 Seconds (9.9-11.8) H 09/17/16 22:30 INR 1.11 (0.93-1.08) H 09/17/16 22:30 APTT 30.7 Seconds (23.7-30.8) 09/17/16 22:30 - Constitutional Appears: Well - Head Exam Head Exam: NORMAL INSPECTION - Neck Exam Neck Exam: Full ROM - Respiratory Exam Respiratory Exam: NORMAL BREATHING PATTERN. absent: Accessory Muscle Use, Wheezes, Respiratory Distress - Extremities Exam Extremities Exam: Normal Inspection Additional comments: patient ambulates with cane. admits to left knee pain - Skin Skin Exam: Dry, Intact, Warm Additional comments: wound vac site c/d/i no signs of leakage from wound vac. Assessment and Plan - Assessment and Plan (Free Text) Assessment: 66 M presents with hematoma s/p BCC excision. Plan: monitor wound vac site for leakage replace wound vac dressing monitor H&Hs c/w pain control
--- NOTE | 2016-09-19 10:42 | CP.PCM.PN ---
Subjective - Date & Time of Evaluation Date of Evaluation: 09/19/16 Time of Evaluation: 10:00 - Subjective Subjective: seen in chair s/p hematoma evacuation and now w/ a wound vac on and iv abs in a bit of pain controlled now trying to keep off the area lots of questions Objective - Vital Signs/Intake and Output Vital Signs (last 24 hours): Temp Pulse Resp BP Pulse Ox 98.9 F 76 19 138/70 94 L 09/19/16 06:00 09/19/16 09:04 09/19/16 06:00 09/19/16 09:04 09/19/16 06:00 Intake and Output: 09/19/16 09/19/16 06:59 18:59 Intake Total 540 600 Output Total 600 200 Balance -60 400 - Medications Medications: Current Medications Amlodipine Besylate (Norvasc) 5 mg PO DAILY [facility] Last Admin: 09/19/16 09:04 Dose: 5 mg Hydromorphone HCl (Dilaudid) 0.5 mg IVP Q15M PRN PRN Reason: Pain, moderate (4-7) Meropenem 1g/NS 100mL IVPB (Meropenem 1g/Ns 100ml Ivpb) 1 gm in 100 mls @ 100 mls/hr IVPB Q8 [facility] PRN Reason: Protocol Stop: 09/27/16 14:01 Last Admin: 09/18/16 14:24 Dose: Not Given Vancomycin HCl (Vancomycin 1gm) 1 gm in 250 mls @ 167 mls/hr IVPB Q12H [facility] PRN Reason: Protocol Stop: 09/27/16 11:46 Last Admin: 09/18/16 22:52 Dose: 167 mls/hr Ketorolac Tromethamine (Toradol) 30 mg IVP Q6H PRN PRN Reason: Pain, moderate (4-7) Last Admin: 09/18/16 01:33 Dose: 30 mg Morphine Sulfate (Morphine) 2 mg IM Q4H PRN PRN Reason: Pain, moderate (4-7) Last Admin: 09/19/16 01:26 Dose: 2 mg Tramadol HCl (Ultram) 50 mg PO TID [facility] Last Admin: 09/19/16 09:06 Dose: 50 mg - Labs Labs: 09/19/16 06:30 09/19/16 06:30 PT 12.0 Seconds (9.9-11.8) H 09/17/16 22:30 INR 1.11 (0.93-1.08) H 09/17/16 22:30 APTT 30.7 Seconds (23.7-30.8) 09/17/16 22:30 - Constitutional Appears: No Acute Distress - Head Exam Head Exam: ATRAUMATIC, NORMAL INSPECTION, NORMOCEPHALIC - Eye Exam Eye Exam: EOMI - ENT Exam ENT Exam: Mucous Membranes Moist - Respiratory Exam Respiratory Exam: Clear to Ausculation Bilateral, NORMAL BREATHING PATTERN - Cardiovascular Exam Cardiovascular Exam: REGULAR RHYTHM - GI/Abdominal Exam GI & Abdominal Exam: Soft, Normal Bowel Sounds - Extremities Exam Extremities Exam: Normal Inspection - Back Exam Additional comments: wound vac on upper middle back - Neurological Exam Neurological Exam: Alert, Oriented x3 - Psychiatric Exam Psychiatric exam: Normal Mood - Skin Skin Exam: Warm Assessment and Plan - Assessment and Plan (Free Text) Assessment: s/p basal cell ca removal last week thena large hematoma and then evacuation and now w/ a wound vac and iv abs Plan: as per surgery and id iv abs wound care checking labs cont w/ aggressive tmt and care answered questions
--- NOTE | 2016-09-19 11:24 | CP.PCM.PN ---
Subjective - Date & Time of Evaluation Date of Evaluation: 09/19/16 Time of Evaluation: 08:00 - Subjective Subjective: DOING BETTER Objective - Vital Signs/Intake and Output Vital Signs (last 24 hours): Temp Pulse Resp BP Pulse Ox 98.9 F 76 19 138/70 94 L 09/19/16 06:00 09/19/16 09:04 09/19/16 06:00 09/19/16 09:04 09/19/16 06:00 Intake and Output: 09/19/16 09/19/16 06:59 18:59 Intake Total 540 600 Output Total 600 200 Balance -60 400 - Medications Medications: Current Medications Amlodipine Besylate (Norvasc) 5 mg PO DAILY [facility] Last Admin: 09/19/16 09:04 Dose: 5 mg Hydromorphone HCl (Dilaudid) 0.5 mg IVP Q15M PRN PRN Reason: Pain, moderate (4-7) Meropenem 1g/NS 100mL IVPB (Meropenem 1g/Ns 100ml Ivpb) 1 gm in 100 mls @ 100 mls/hr IVPB Q8 [facility] PRN Reason: Protocol Stop: 09/27/16 14:01 Last Admin: 09/18/16 14:24 Dose: Not Given Vancomycin HCl (Vancomycin 1gm) 1 gm in 250 mls @ 167 mls/hr IVPB Q12H [facility] PRN Reason: Protocol Stop: 09/27/16 11:46 Last Admin: 09/18/16 22:52 Dose: 167 mls/hr Ketorolac Tromethamine (Toradol) 30 mg IVP Q6H PRN PRN Reason: Pain, moderate (4-7) Last Admin: 09/18/16 01:33 Dose: 30 mg Morphine Sulfate (Morphine) 2 mg IM Q4H PRN PRN Reason: Pain, moderate (4-7) Last Admin: 09/19/16 01:26 Dose: 2 mg Tramadol HCl (Ultram) 50 mg PO TID [facility] Last Admin: 09/19/16 09:06 Dose: 50 mg - Labs Labs: 09/19/16 06:30 09/19/16 06:30 PT 12.0 Seconds (9.9-11.8) H 09/17/16 22:30 INR 1.11 (0.93-1.08) H 09/17/16 22:30 APTT 30.7 Seconds (23.7-30.8) 09/17/16 22:30 - Constitutional Appears: Well - Head Exam Head Exam: ATRAUMATIC, NORMAL INSPECTION, NORMOCEPHALIC - Eye Exam Eye Exam: EOMI, Normal appearance, PERRL Pupil Exam: NORMAL ACCOMODATION, PERRL - ENT Exam ENT Exam: Mucous Membranes Moist, Normal Exam - Neck Exam Neck Exam: Full ROM, Normal Inspection. absent: Lymphadenopathy - Respiratory Exam Respiratory Exam: Clear to Ausculation Bilateral, NORMAL BREATHING PATTERN - Cardiovascular Exam Cardiovascular Exam: REGULAR RHYTHM, +S1, +S2. absent: Murmur - GI/Abdominal Exam GI & Abdominal Exam: Soft, Normal Bowel Sounds. absent: Tenderness - Rectal Exam Rectal Exam: NORMAL INSPECTION - Exam Exam: Circumcision, NORMAL INSPECTION External exam: NORMAL EXTERNAL EXAM Speculum exam: NORMAL SPECULUM EXAM Bimanual exam: NORMAL BIMANUAL EXAM - Extremities Exam Extremities Exam: Full ROM, Normal Capillary Refill, Normal Inspection. absent : Joint Swelling, Pedal Edema - Back Exam Back Exam: NORMAL INSPECTION - Neurological Exam Neurological Exam: Alert, Awake, CN II-XII Intact, Normal Gait, Oriented x3 - Psychiatric Exam Psychiatric exam: Normal Affect, Normal Mood - Skin Skin Exam: Dry, Intact, Normal Color, Warm Assessment and Plan (1) Hematoma Status: Acute (2) Hematoma Status: Acute (3) Status post skin graft Status: Acute (4) Cellulitis Status: Acute (5) Cellulitis, leg Status: Acute (6) Venous stasis dermatitis of both lower extremities Status: Acute - Assessment and Plan (Free Text) Plan: S/P EVACUATION OF HEMATOMA PLACEMENT OF WOUND VAC AWAITING OR CULTURES VANCO /MERR
[2016-09-19] MEDS: Vancomycin 1gm in NS 250ml 1 GM/250 ML BAG IVPB SCH ×2 (12:42→23:20)
[2016-09-20 07:40] LABS: HEMOGLOBIN 11.2 gm/dL (14.0-18.0); MEAN CELL VOLUME 93.2 fL (80.0-105.0); MEAN CORPUSCULAR HEMOGLOBIN 30.5 pg (25.0-35.0); MEAN CORPUSCULAR HGB CONC 32.7 g/dl (31.0-37.0); MEAN PLATELET VOLUME 10.9 fl (7.0-11.0); RBC 3.67 10^6/uL (3.5-6.1); RED CELL DISTRIBUTION WIDTH 12.3 % (11.5-14.5)
--- NOTE | 2016-09-20 07:47 | CP.PCM.PN ---
Subjective - Date & Time of Evaluation Date of Evaluation: 09/20/16 Time of Evaluation: 06:45 - Subjective Subjective: General Surgery Dr. Kuhn Pt S&E @bedside. NAEO. denies pain, F/C, N/V, D/C. tolerating diet. Objective - Vital Signs/Intake and Output Vital Signs (last 24 hours): Temp Pulse Resp BP Pulse Ox 97.8 F 82 20 145/60 98 09/19/16 16:00 09/19/16 16:00 09/19/16 16:00 09/19/16 16:00 09/19/16 16:00 Intake and Output: 09/20/16 09/20/16 06:59 18:59 Intake Total 790 300 Output Total 800 Balance 790 -500 - Medications Medications: Current Medications Amlodipine Besylate (Norvasc) 5 mg PO DAILY [facility] Last Admin: 09/19/16 09:04 Dose: 5 mg Hydromorphone HCl (Dilaudid) 0.5 mg IVP Q15M PRN PRN Reason: Pain, moderate (4-7) Meropenem 1g/NS 100mL IVPB (Meropenem 1g/Ns 100ml Ivpb) 1 gm in 100 mls @ 100 mls/hr IVPB Q8 [facility] PRN Reason: Protocol Stop: 09/27/16 14:01 Last Admin: 09/18/16 14:24 Dose: Not Given Vancomycin HCl (Vancomycin 1gm) 1 gm in 250 mls @ 167 mls/hr IVPB Q12H [facility] PRN Reason: Protocol Stop: 09/27/16 11:46 Last Admin: 09/19/16 23:20 Dose: 167 mls/hr Ketorolac Tromethamine (Toradol) 30 mg IVP Q6H PRN PRN Reason: Pain, moderate (4-7) Last Admin: 09/18/16 01:33 Dose: 30 mg Morphine Sulfate (Morphine) 2 mg IM Q4H PRN PRN Reason: Pain, moderate (4-7) Last Admin: 09/19/16 01:26 Dose: 2 mg Tramadol HCl (Ultram) 50 mg PO TID [facility] Last Admin: 09/19/16 17:09 Dose: 50 mg - Labs Labs: AM labs pending - Constitutional Appears: Non-toxic, No Acute Distress - Head Exam Head Exam: NORMAL INSPECTION - Eye Exam Eye Exam: Normal appearance - ENT Exam ENT Exam: Mucous Membranes Moist - Respiratory Exam Respiratory Exam: NORMAL BREATHING PATTERN. absent: Accessory Muscle Use, Respiratory Distress - Extremities Exam Additional comments: B/L LE faye wrapped - Back Exam Additional comments: Wound vac in place - saturated - Neurological Exam Neurological Exam: Alert, Awake, Oriented x3 - Psychiatric Exam Psychiatric exam: Normal Affect, Normal Mood - Skin Skin Exam: Dry, Normal Color, Warm Assessment and Plan - Assessment and Plan (Free Text) Assessment: 66 y/o M w/ BCC s/p excision w/ skin graft s/p hematoma exacuation w/ wound vac placement - wound vac to be changed - pain management - cont medical management Pt discussed w/ Dr. Bam De Luna PGY2
[2016-09-20 07:59] LABS: ALB/GLOB RATIO 1.4 (1.1-1.8); ALBUMIN 3.8 g/dL (3.0-4.8); ALT/SGPT 31 U/L (7-56); AST/SGOT 33 U/L (15-59); BLOOD UREA NITROGEN 13 mg/dL (7-21); CALCIUM 8.9 mg/dL (8.4-10.5); GFR AFRICAN-AMERICAN > 60; GFR NON-AFRICAN AMERICAN > 60
--- NOTE | 2016-09-20 08:16 | CP.PCM.PN ---
Subjective - Date & Time of Evaluation Date of Evaluation: 09/20/16 Time of Evaluation: 07:00 - Subjective Subjective: seen in room wound vac on tolerating it well comfortable less pain eats well walks a bit in the room on iv abs by id Objective - Vital Signs/Intake and Output Vital Signs (last 24 hours): Temp Pulse Resp BP Pulse Ox 97.8 F 82 20 145/60 98 09/19/16 16:00 09/19/16 16:00 09/19/16 16:00 09/19/16 16:00 09/19/16 16:00 Intake and Output: 09/20/16 09/20/16 06:59 18:59 Intake Total 790 300 Output Total 800 Balance 790 -500 - Medications Medications: Current Medications Amlodipine Besylate (Norvasc) 5 mg PO DAILY [facility] Last Admin: 09/19/16 09:04 Dose: 5 mg Meropenem 1g/NS 100mL IVPB (Meropenem 1g/Ns 100ml Ivpb) 1 gm in 100 mls @ 100 mls/hr IVPB Q8 [facility] PRN Reason: Protocol Stop: 09/27/16 14:01 Last Admin: 09/18/16 14:24 Dose: Not Given Vancomycin HCl (Vancomycin 1gm) 1 gm in 250 mls @ 167 mls/hr IVPB Q12H [facility] PRN Reason: Protocol Stop: 09/27/16 11:46 Last Admin: 09/19/16 23:20 Dose: 167 mls/hr Ketorolac Tromethamine (Toradol) 30 mg IVP Q6H PRN PRN Reason: Pain, moderate (4-7) Last Admin: 09/18/16 01:33 Dose: 30 mg Tramadol HCl (Ultram) 50 mg PO TID [facility] Last Admin: 09/19/16 17:09 Dose: 50 mg - Labs Labs: 09/20/16 07:00 09/20/16 07:00 PT 12.0 Seconds (9.9-11.8) H 09/17/16 22:30 INR 1.11 (0.93-1.08) H 09/17/16 22:30 APTT 30.7 Seconds (23.7-30.8) 09/17/16 22:30 - Constitutional Appears: No Acute Distress - Head Exam Head Exam: ATRAUMATIC, NORMAL INSPECTION, NORMOCEPHALIC - Eye Exam Eye Exam: EOMI - ENT Exam ENT Exam: Mucous Membranes Moist - Respiratory Exam Respiratory Exam: Clear to Ausculation Bilateral, NORMAL BREATHING PATTERN - Cardiovascular Exam Cardiovascular Exam: REGULAR RHYTHM - GI/Abdominal Exam GI & Abdominal Exam: Soft, Normal Bowel Sounds - Extremities Exam Extremities Exam: Normal Inspection - Neurological Exam Neurological Exam: Alert, CN II-XII Intact, Oriented x3 - Skin Skin Exam: Warm Additional comments: wound vac on back Assessment and Plan - Assessment and Plan (Free Text) Assessment: s/p basal cell removal skin graft then hematoma then removal and now w/ wound vac Plan: iv abs wound vac labs meds when ok w/ surgery id will plan d/c maybe tomorrow ??
[2016-09-20 08:44] VITALS: BP 153/91; PULSE 75; RESP 19; TEMP 97.6; O2SAT 97
[2016-09-20] MEDS: Vancomycin 1gm in NS 250ml 1 GM/250 ML BAG IVPB SCH (11:43)
== END 2016-09-20 16:05 | DRG 921 ==
LOC: ED 17:29 → ERH 21:40 → 3RNO 23:31 → OBSVTOIN 09-18 12:16
PROVIDERS: ADMIT Family Medicine; ATTEND Family Medicine
PROC: 0H96X0Z Drainage of Back Skin with Drainage Device, External Approach (ICD-10-PCS; principal; 2016-09-18 12:45)
DX: L76.31 Postprocedural hematoma of skin and subcutaneous tissue following a dermatologic procedure (principal); C44.519 Basal cell carcinoma of skin of other part of trunk; I10 Essential (primary) hypertension; Y83.8 Other surgical procedures as the cause of abnormal reaction of the patient, or of later complication, without mention of misadventure at the time of the procedure; L57.0 Actinic keratosis; M19.90 Unspecified osteoarthritis, unspecified site; Z87.891 Personal history of nicotine dependence

== ENCOUNTER 2016-09-20 16:20 | Inpatient (IN) | payer OTHER ==
[2016-09-20 16:25] VITALS: BMI 28.8
[2016-09-20] MEDS: Vancomycin 1gm in NS 250ml 1 GM/250 ML BAG IVPB SCH (18:20)
[2016-09-20] MEDS ORDERED: Meropenem 1g/NS 100mL IVPB 1 GM/100 ML PIGGYBACK IVPB SCH (22:00)
[2016-09-21] MEDS: Vancomycin 1gm in NS 250ml 1 GM/250 ML BAG IVPB SCH (05:01)
[2016-09-21 07:16] LABS: BASO # 0.03 K/mm3 (0.0-2.0); BASO % 0.4 % (0.0-3.0); EOS # 0.5 (0.0-0.7); EOS % 5.6 % (1.5-5.0); GRAN # 4.66 (1.4-6.5); GRAN % 55.7 % (50.0-68.0); HEMOGLOBIN 10.7 gm/dL (14.0-18.0); LYMPH # 2.5 (1.2-3.4); LYMPH % 30.4 % (22.0-35.0); MEAN CORPUSCULAR HEMOGLOBIN 30.4 pg (25.0-35.0); MEAN CORPUSCULAR HGB CONC 32.3 g/dl (31.0-37.0); MEAN PLATELET VOLUME 10.8 fl (7.0-11.0); MONO # 0.7 (0.1-0.6); MONO % 7.9 % (1.0-6.0); PLATELET COUNT 194 10^3/uL (120.0-450.0); RBC 3.52 10^6/uL (3.5-6.1); RED CELL DISTRIBUTION WIDTH 12.5 % (11.5-14.5); WHITE BLOOD COUNT 8.4 10^3/ul (4.5-11.0)
[2016-09-21 07:19] LABS: ALB/GLOB RATIO 1.3 (1.1-1.8); ALBUMIN 3.6 g/dL (3.0-4.8); ALT/SGPT 31 U/L (7-56); AST/SGOT 32 U/L (15-59); BLOOD UREA NITROGEN 11 mg/dL (7-21); CALCIUM 8.7 mg/dL (8.4-10.5); GFR AFRICAN-AMERICAN > 60; GFR NON-AFRICAN AMERICAN > 60
--- NOTE | 2016-09-21 08:08 | CP.PCM.PN ---
Subjective - Date & Time of Evaluation Date of Evaluation: 09/21/16 Time of Evaluation: 07:10 - Subjective Subjective: General Surgery- Dr. Kuhn Pt s&e at beside this am. NAEO. Denies CP/SOB/CARDOSO/N/V. wound vac changed yesterday, C/D/I will mild strikethrough Objective - Vital Signs/Intake and Output Vital Signs (last 24 hours): Temp Pulse Resp BP Pulse Ox 98.1 F 76 20 127/69 09/20/16 23:04 09/20/16 23:04 09/20/16 23:04 09/20/16 23:04 - Medications Medications: Current Medications Amlodipine Besylate (Norvasc) 5 mg PO DAILY [facility] Meropenem 1g/NS 100mL IVPB (Meropenem 1g/Ns 100ml Ivpb) 1 gm in 100 mls @ 100 mls/hr IVPB Q8 [facility] PRN Reason: Protocol Stop: 09/27/16 22:01 Vancomycin HCl (Vancomycin 1gm) 1 gm in 250 mls @ 167 mls/hr IVPB Q12H [facility] PRN Reason: Protocol Last Admin: 09/21/16 05:01 Dose: 167 mls/hr Ketorolac Tromethamine (Toradol) 30 mg IVP Q6H PRN; Protocol PRN Reason: Pain, moderate (4-7) Tramadol HCl (Ultram) 50 mg PO TID [facility] PRN Reason: Protocol Last Admin: 09/20/16 18:20 Dose: 50 mg - Labs Labs: 09/21/16 06:20 09/21/16 06:20 - Constitutional Appears: Well - Head Exam Head Exam: ATRAUMATIC - Respiratory Exam Respiratory Exam: Clear to Ausculation Bilateral, NORMAL BREATHING PATTERN. absent: Accessory Muscle Use - Cardiovascular Exam Cardiovascular Exam: REGULAR RHYTHM, +S1, +S2 - GI/Abdominal Exam GI & Abdominal Exam: Soft, Normal Bowel Sounds - Back Exam Back Exam: absent: paraspinal tenderness, vertebral tenderness Additional comments: wound vac in place, dressing C/D/I - Neurological Exam Neurological Exam: Alert, Awake - Skin Additional comments: wound vac on back. C/D/I Assessment and Plan - Assessment and Plan (Free Text) Assessment: 66M hx BCC excision s/p hematoma evacuation POD4 Plan: - c/w dressing changes - to follow up in out pt clinic to discuss with Dr. Bam Baker PGY1
--- NOTE | 2016-09-21 10:52 | CP.PCM.CON ---
History of Present Illness - History of Present Illness History of Present Illness: 66 year old male with PMH of HTN, osteoarthritis, history of basal cell cancer on the back area, history of venous stasis dermatitis and lower extremity cellulitis was initially admitted in [facility] because of excision of the basal cell cancer. He then developed hematoma around the area and evacuation of the hematoma with wound vacuum and skin grafting done. He is now transferred to [facility] for continued medical therapy and physical therapy. Infectious diseases consult is requested to evaluate if the patient still needs antibiotics. Currently the patient is comfortable, afebrile, not in distress, no SOB, no cough, no diarrhea, no dysuria. Review of Systems - Review of Systems All systems: reviewed and no additional remarkable complaints except (as per HPI ) Past Patient History - Infectious Disease Hx of Infectious Diseases: None - Tetanus Immunizations Tetanus Immunization: Unknown - Past Medical History & Family History Past Medical History?: Yes - Past Social History Smoking Status: Former Smoker - CARDIAC Hx Hypertension: Yes Hx Pacemaker: No - PULMONARY Hx Respiratory Disorders: No - NEUROLOGICAL Hx Neurological Disorder: No - HEENT Hx HEENT Problems: No - RENAL Hx Chronic Kidney Disease: No - ENDOCRINE/METABOLIC Hx Endocrine Disorders: No - HEMATOLOGICAL/ONCOLOGICAL Hx Blood Transfusions: No - INTEGUMENTARY 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) Other/Comment: actinic keratosis - MUSCULOSKELETAL/RHEUMATOLOGICAL Hx Musculoskeletal Disorders: Yes (OSTEOARTHRITIS) - GASTROINTESTINAL Hx Gastrointestinal Disorders: No - GENITOURINARY/GYNECOLOGICAL Hx Reproductive Disorders: No - PSYCHIATRIC Hx Emotional Abuse: No Hx Physical Abuse: No Hx Substance Use: No - SURGICAL HISTORY Hx Surgeries: No - ANESTHESIA Hx Anesthesia Reactions: No Hx Malignant Hyperthermia: No Meds Allergies/Adverse Reactions: Allergies Allergy/AdvReac Type Severity Reaction Status Date / Time No Known Allergies Allergy Verified 09/17/16 17:37 - Medications Medications: Current Medications Amlodipine Besylate (Norvasc) 5 mg PO DAILY [facility] Meropenem 1g/NS 100mL IVPB (Meropenem 1g/Ns 100ml Ivpb) 1 gm in 100 mls @ 100 mls/hr IVPB Q8 [facility] PRN Reason: Protocol Stop: 09/27/16 22:01 Vancomycin HCl (Vancomycin 1gm) 1 gm in 250 mls @ 167 mls/hr IVPB Q12H [facility] PRN Reason: Protocol Ketorolac Tromethamine (Toradol) 30 mg IVP Q6H PRN; Protocol PRN Reason: Pain, moderate (4-7) Tramadol HCl (Ultram) 50 mg PO TID [facility] PRN Reason: Protocol Physical Exam - Constitutional Appears: No Acute Distress - Head Exam Head Exam: NORMAL INSPECTION - Respiratory Exam Respiratory Exam: Decreased Breath Sounds - Cardiovascular Exam Cardiovascular Exam: +S1, +S2 - GI/Abdominal Exam GI & Abdominal Exam: Soft. absent: Tenderness Results - Vital Signs Recent Vital Signs: Last Vital Signs Temp 98.1 F 09/20/16 16:30 Pulse 76 09/20/16 16:30 Resp 20 09/20/16 16:30 BP 127/69 09/20/16 16:30 Pulse Ox - Labs Result Diagrams: 09/21/16 06:20 09/21/16 06:20 Assessment & Plan - Assessment and Plan (Free Text) Plan: Assessment Hematoma around the basal cell CA excision area S/P evacuation POD #5 with skin grafting and wound vacuum placement HTN osteoarthritis history of basal cell cancer on the back area history of venous stasis dermatitis and lower extremity cellulitis Plan Wound cx from the OR only grew Corynebacterium - will d/c antibiotics and observe
--- NOTE | 2016-09-21 12:01 | CP.PCM.HP ---
History of Present Illness - History of Present Illness History of Present Illness: 66 y/o w/m from the hospital side w/ a hematoma s/p basal cell ca removal and skin graft and s/p evacuation and w/ a wound vac and needs skin care and iv abs and is now in tcu Present on Admission - Present on Admission Any Indicators Present on Admission: Yes History of DVT/PE: No History of Uncontrolled Diabetes: No Urinary Catheter: No Decubitus Ulcer Present: Yes Decubitus Ulcer Stage: II Review of Systems - Musculoskeletal Additional comments: bad oa of hips - Integumentary Additional comments: large hematoma back wound vac Past Patient History - Infectious Disease Hx of Infectious Diseases: None - Tetanus Immunizations Tetanus Immunization: Unknown - Past Medical History & Family History Past Medical History?: Yes - Past Social History Smoking Status: Former Smoker - CARDIAC Hx Hypertension: Yes Hx Pacemaker: No - PULMONARY Hx Respiratory Disorders: No - NEUROLOGICAL Hx Neurological Disorder: No - HEENT Hx HEENT Problems: No - RENAL Hx Chronic Kidney Disease: No - ENDOCRINE/METABOLIC Hx Endocrine Disorders: No - HEMATOLOGICAL/ONCOLOGICAL Hx Blood Transfusions: No - INTEGUMENTARY 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) Other/Comment: actinic keratosis - MUSCULOSKELETAL/RHEUMATOLOGICAL Hx Musculoskeletal Disorders: Yes (OSTEOARTHRITIS) - GASTROINTESTINAL Hx Gastrointestinal Disorders: No - GENITOURINARY/GYNECOLOGICAL Hx Reproductive Disorders: No - PSYCHIATRIC Hx Emotional Abuse: No Hx Physical Abuse: No Hx Substance Use: No - SURGICAL HISTORY Hx Surgeries: No - ANESTHESIA Hx Anesthesia Reactions: No Hx Malignant Hyperthermia: No Meds Allergies/Adverse Reactions: Allergies Allergy/AdvReac Type Severity Reaction Status Date / Time No Known Allergies Allergy Verified 09/17/16 17:37 Physical Exam - Constitutional Appears: No Acute Distress - Head Exam Head Exam: ATRAUMATIC, NORMAL INSPECTION, NORMOCEPHALIC - Eye Exam Eye Exam: EOMI - ENT Exam ENT Exam: Mucous Membranes Moist - Neck Exam Neck exam: Positive for: Normal Inspection - Respiratory Exam Respiratory Exam: Clear to Auscultation Bilateral, NORMAL BREATHING PATTERN - Cardiovascular Exam Cardiovascular Exam: REGULAR RHYTHM - GI/Abdominal Exam GI & Abdominal Exam: Normal Bowel Sounds, Soft - Extremities Exam Additional comments: left foot ulcer - Back Exam Additional comments: wound vac - Psychiatric Exam Psychiatric exam: Normal Affect - Skin Additional comments: s/p hematoma w/ wound vac Results - Vital Signs Recent Vital Signs: Last Vital Signs Temp 97.5 F L 09/21/16 10:00 Pulse 84 09/21/16 10:00 Resp 12 09/21/16 10:00 BP 164/77 H 09/21/16 10:00 Pulse Ox 100 09/21/16 10:00 - Labs Result Diagrams: 09/21/16 06:20 09/21/16 06:20 Labs: Laboratory Results - last 24 hr 09/21/16 09/21/16 06:20 06:20 WBC 8.4 RBC 3.52 Hgb 10.7 L Hct 33.1 L MCV 94.0 MCH 30.4 MCHC 32.3 RDW 12.5 Plt Count 194 MPV 10.8 Gran % 55.7 Lymph % (Auto) 30.4 [place] % (Auto) 7.9 H Eos % (Auto) 5.6 H Baso % (Auto) 0.4 Gran # 4.66 Lymph # 2.5 [place] # 0.7 H Eos # 0.5 Baso # 0.03 Sodium 137 Potassium 4.2 Chloride 102 Carbon Dioxide 28 Anion Gap 11 BUN 11 Creatinine 0.8 Est GFR ( Amer) > 60 Est GFR (Non-Af Amer) > 60 Random Glucose 85 Calcium 8.7 Total Bilirubin 0.5 AST 32 ALT 31 Alkaline Phosphatase 72 Total Protein 6.4 Albumin 3.6 Globulin 2.8 Albumin/Globulin Ratio 1.3 Assessment & Plan - Assessment and Plan (Free Text) Assessment: s/p basal cell removal then skin graft then hematoma then removal and now w/ a wound vac left foot ulcer htn Plan: tcu iv abs wound care pod eval checking labs - Date & Time Date: 09/21/16 Time: 08:00
[2016-09-22 07:31] LABS: MEAN CELL VOLUME 93.3 fL (80.0-105.0); MEAN CORPUSCULAR HEMOGLOBIN 30.8 pg (25.0-35.0); MEAN PLATELET VOLUME 10.7 fl (7.0-11.0); RBC 3.57 10^6/uL (3.5-6.1); RED CELL DISTRIBUTION WIDTH 12.4 % (11.5-14.5); WHITE BLOOD COUNT 7.1 10^3/ul (4.5-11.0)
[2016-09-22 07:39] LABS: ALB/GLOB RATIO 1.3 (1.1-1.8); ALBUMIN 3.7 g/dL (3.0-4.8); ALT/SGPT 27 U/L (7-56); AST/SGOT 32 U/L (15-59); BLOOD UREA NITROGEN 10 mg/dL (7-21); CALCIUM 8.8 mg/dL (8.4-10.5); GFR AFRICAN-AMERICAN > 60; GFR NON-AFRICAN AMERICAN > 60
--- NOTE | 2016-09-22 08:00 | CP.PCM.PN ---
Subjective - Date & Time of Evaluation Date of Evaluation: 09/22/16 Time of Evaluation: 07:00 - Subjective Subjective: seen in room in tcu wound vac on left foot oozing and await pod eval will reorder off iv abs eats well no pain at this time Objective - Vital Signs/Intake and Output Vital Signs (last 24 hours): Temp Pulse Resp BP Pulse Ox 97.8 F 67 18 148/84 96 09/22/16 06:00 09/22/16 06:00 09/22/16 06:00 09/22/16 06:00 09/22/16 06:00 - Medications Medications: Current Medications Amlodipine Besylate (Norvasc) 5 mg PO DAILY [facility] Last Admin: 09/21/16 09:57 Dose: 5 mg Ketorolac Tromethamine (Toradol) 30 mg IVP Q6H PRN; Protocol PRN Reason: Pain, moderate (4-7) Last Admin: 09/22/16 05:32 Dose: 30 mg Tramadol HCl (Ultram) 50 mg PO TID [facility] PRN Reason: Protocol Last Admin: 09/21/16 17:58 Dose: 50 mg - Labs Labs: 09/22/16 07:00 09/22/16 07:00 - Constitutional Appears: No Acute Distress - Head Exam Head Exam: NORMOCEPHALIC - Neck Exam Neck Exam: Normal Inspection - Respiratory Exam Respiratory Exam: Decreased Breath Sounds, Clear to Ausculation Bilateral - Cardiovascular Exam Cardiovascular Exam: REGULAR RHYTHM - GI/Abdominal Exam GI & Abdominal Exam: Soft, Normal Bowel Sounds - Extremities Exam Extremities Exam: Normal Inspection - Back Exam Additional comments: back w/ wound vac - Neurological Exam Neurological Exam: Alert, CN II-XII Intact, Oriented x3 - Psychiatric Exam Psychiatric exam: Normal Affect - Skin Skin Exam: Warm Additional comments: back w/ wound vac left foot ulcer oozing Assessment and Plan - Assessment and Plan (Free Text) Assessment: s/p basal cell ca removal and skin graft then hematoma and then removal and now w/ wound vac left foot ulcer oozing htn cellulitis Plan: cont wound vac as per surgery await pod cont pt checking labs meds tests abswered questions
--- NOTE | 2016-09-22 10:27 | CP.PCM.CON ---
<Lizzie Porras - Last Filed: 09/22/16 11:13> History of Present Illness - History of Present Illness History of Present Illness: 66 year old male with PMHx of basal cell carcinoma, venous stasis and HTN seen at bedside regarding bilateral leg ulcerations. Patient states that he has moderate pain in his legs. Patient states that he sees Dr. Rahman in the wound care center for the bilateral leg redness and swelling. He denies any acute events overnight. He states that he has had an unna boot on for a week and it has some drainage. He states that he does not want anyone to cut the dressing off but instead is going to soak the dressing off. Patient denies n/f/v/d/c/ sob. Past Patient History - Infectious Disease Hx of Infectious Diseases: None - Tetanus Immunizations Tetanus Immunization: Unknown - Past Medical History & Family History Past Medical History?: Yes - Past Social History Smoking Status: Former Smoker - CARDIAC Hx Hypertension: Yes - PULMONARY Hx Respiratory Disorders: No - NEUROLOGICAL Hx Neurological Disorder: No - HEENT Hx HEENT Problems: No - RENAL Hx Chronic Kidney Disease: No - ENDOCRINE/METABOLIC Hx Endocrine Disorders: No - HEMATOLOGICAL/ONCOLOGICAL Hx Blood Transfusions: No - INTEGUMENTARY 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) Other/Comment: actinic keratosis - MUSCULOSKELETAL/RHEUMATOLOGICAL Hx Arthritis: Yes - GASTROINTESTINAL Hx Gastrointestinal Disorders: No - GENITOURINARY/GYNECOLOGICAL Hx Reproductive Disorders: No - PSYCHIATRIC Hx Emotional Abuse: No Hx Physical Abuse: No Hx Substance Use: No - SURGICAL HISTORY Hx Surgeries: No - ANESTHESIA Hx Anesthesia Reactions: No Hx Malignant Hyperthermia: No Meds Allergies/Adverse Reactions: Allergies Allergy/AdvReac Type Severity Reaction Status Date / Time No Known Allergies Allergy Verified 09/17/16 17:37 - Medications Medications: Current Medications Amlodipine Besylate (Norvasc) 5 mg PO DAILY ON [facility] OF [facility] Last Admin: 09/21/16 09:57 Dose: 5 mg Ketorolac Tromethamine (Toradol) 30 mg IVP Q6H PRN; Protocol PRN Reason: Pain, moderate (4-7) Last Admin: 09/22/16 05:32 Dose: 30 mg Tramadol HCl (Ultram) 50 mg PO TID [facility] PRN Reason: Protocol Last Admin: 09/21/16 17:58 Dose: 50 mg Physical Exam - Constitutional Appears: Well, Non-toxic, No Acute Distress - Extremities Exam Additional comments: Lower extremity focused exam: Vasc: Palpable pedal pulses, TG wnl, CFT < 4 sec to all digits bilaterally Derm: Hyperpigmentation noted to bilateral foot and legs up to midcalf Right: superficial patchy ulcerations noted to anterior right leg, no purulence , no malodor, no undermining, or clinical signs of infection noted Left: Superficial ulceration medial aspect of ankle, no drainage is noted. No purulent discharge noted, no fluctuance, no malodor, no undermining Neuro: gross sensation diminished Ortho: Tenderness to palpation of bilateral legs - Neurological Exam Neurological exam: Alert, Oriented x3 - Psychiatric Exam Psychiatric exam: Normal Affect, Normal Mood Results - Vital Signs Recent Vital Signs: Last Vital Signs Temp 97.8 F 09/22/16 06:00 Pulse 67 09/22/16 06:00 Resp 18 09/22/16 06:00 BP 148/84 09/22/16 06:00 Pulse Ox 96 09/22/16 06:00 - Labs Result Diagrams: 09/22/16 07:00 09/22/16 07:00 Labs: Laboratory Results - last 24 hr 09/22/16 09/22/16 07:00 07:00 WBC 7.1 RBC 3.57 Hgb 11.0 L Hct 33.3 L MCV 93.3 MCH 30.8 MCHC 33.0 RDW 12.4 Plt Count 213 MPV 10.7 Sodium 137 Potassium 4.1 Chloride 102 Carbon Dioxide 28 Anion Gap 11 BUN 10 Creatinine 0.8 Est GFR ( Amer) > 60 Est GFR (Non-Af Amer) > 60 Random Glucose 89 Calcium 8.8 Total Bilirubin 0.5 AST 32 ALT 27 Alkaline Phosphatase 75 Total Protein 6.4 Albumin 3.7 Globulin 2.8 Albumin/Globulin Ratio 1.3 Assessment & Plan - Assessment and Plan (Free Text) Assessment: 66 year old male seen at bedside for superficial leg ulcerations b/l Plan: patient seen and evaluated at bedside Discussed with attending, Dr. Venegas labs,chart and vitals reviewed legs cleansed with normal sterile saline b/l Unna boot applied to bilateral lower extremity and dressed with [place]an Patient is stable from podiatry standpoint patient to follow up at wound care center as outpatient on 09/25/16 <Beto Venegas - Last Filed: 09/22/16 11:21> Meds - Medications Medications: Current Medications Amlodipine Besylate (Norvasc) 5 mg PO DAILY ON [facility] OF [facility] Last Admin: 09/22/16 10:26 Dose: 5 mg Ketorolac Tromethamine (Toradol) 30 mg IVP Q6H PRN; Protocol PRN Reason: Pain, moderate (4-7) Last Admin: 09/22/16 05:32 Dose: 30 mg Tramadol HCl (Ultram) 50 mg PO TID ON [facility] OF [facility] PRN Reason: Protocol Last Admin: 09/22/16 10:26 Dose: 50 mg Results - Vital Signs Recent Vital Signs: Last Vital Signs Temp 97.8 F 09/22/16 06:00 Pulse 67 09/22/16 10:26 Resp 18 09/22/16 06:00 BP 148/84 09/22/16 10:26 Pulse Ox 96 09/22/16 06:00 - Labs Result Diagrams: 09/22/16 07:00 09/22/16 07:00 Labs: Laboratory Results - last 24 hr 09/22/16 09/22/16 07:00 07:00 WBC 7.1 RBC 3.57 Hgb 11.0 L Hct 33.3 L MCV 93.3 MCH 30.8 MCHC 33.0 RDW 12.4 Plt Count 213 MPV 10.7 Sodium 137 Potassium 4.1 Chloride 102 Carbon Dioxide 28 Anion Gap 11 BUN 10 Creatinine 0.8 Est GFR ( Amer) > 60 Est GFR (Non-Af Amer) > 60 Random Glucose 89 Calcium 8.8 Total Bilirubin 0.5 AST 32 ALT 27 Alkaline Phosphatase 75 Total Protein 6.4 Albumin 3.7 Globulin 2.8 Albumin/Globulin Ratio 1.3 Attending/Attestation - Attestation I have personally seen and examined this patient.: Yes I have fully participated in the care of the patient.: Yes I have reviewed all pertinent clinical information: Yes
--- NOTE | 2016-09-22 11:48 | CP.PCM.PN ---
Subjective - Date & Time of Evaluation Date of Evaluation: 09/22/16 Time of Evaluation: 08:25 - Subjective Subjective: Comfortable, minimal back pain at site of excision, no fevers. Objective - Vital Signs/Intake and Output Vital Signs (last 24 hours): Temp Pulse Resp BP Pulse Ox 97.8 F 67 18 148/84 96 09/22/16 06:00 09/22/16 06:00 09/22/16 06:00 09/22/16 06:00 09/22/16 06:00 - Medications Medications: Current Medications Amlodipine Besylate (Norvasc) 5 mg PO DAILY [facility] Last Admin: 09/21/16 09:57 Dose: 5 mg Ketorolac Tromethamine (Toradol) 30 mg IVP Q6H PRN; Protocol PRN Reason: Pain, moderate (4-7) Last Admin: 09/22/16 05:32 Dose: 30 mg Tramadol HCl (Ultram) 50 mg PO TID [facility] PRN Reason: Protocol Last Admin: 09/21/16 17:58 Dose: 50 mg - Labs Labs: 09/22/16 07:00 09/22/16 07:00 - Constitutional Appears: Non-toxic, No Acute Distress - Head Exam Head Exam: NORMAL INSPECTION - ENT Exam ENT Exam: Mucous Membranes Moist - Neck Exam Neck Exam: absent: Meningismus - Respiratory Exam Respiratory Exam: Decreased Breath Sounds - Cardiovascular Exam Cardiovascular Exam: +S1, +S2 - GI/Abdominal Exam GI & Abdominal Exam: Soft. absent: Tenderness - Back Exam Additional comments: upper back with wound vacuum in place Assessment and Plan - Assessment and Plan (Free Text) Plan: Assessment Hematoma around the basal cell CA excision area S/P evacuation POD #6 with skin grafting and wound vacuum placement - no evidence of infection HTN osteoarthritis history of basal cell cancer on the back area history of venous stasis dermatitis and lower extremity cellulitis Plan Wound cx from the OR only grew Corynebacterium - continue to monitor off antibiotics while the patient is in the hospital since he is at risk for nosocomial infections
[2016-09-23 06:34] VITALS: RESP 16; TEMP 97.5; O2SAT 94
[2016-09-23 07:39] LABS: HEMOGLOBIN 11.7 gm/dL (14.0-18.0); MEAN CELL VOLUME 94.2 fL (80.0-105.0); MEAN CORPUSCULAR HEMOGLOBIN 30.8 pg (25.0-35.0); MEAN CORPUSCULAR HGB CONC 32.7 g/dl (31.0-37.0); MEAN PLATELET VOLUME 11.1 fl (7.0-11.0); RBC 3.8 10^6/uL (3.5-6.1); RED CELL DISTRIBUTION WIDTH 12.6 % (11.5-14.5); WHITE BLOOD COUNT 8.2 10^3/ul (4.5-11.0)
[2016-09-23 07:52] LABS: ALB/GLOB RATIO 1.3 (1.1-1.8); ALBUMIN 3.9 g/dL (3.0-4.8); ALT/SGPT 37 U/L (7-56); AST/SGOT 32 U/L (15-59); BLOOD UREA NITROGEN 11 mg/dL (7-21); CALCIUM 9.1 mg/dL (8.4-10.5); GFR AFRICAN-AMERICAN > 60; GFR NON-AFRICAN AMERICAN > 60
[2016-09-23 10:19] VITALS: BP 138/67; PULSE 77
--- NOTE | 2016-09-23 11:04 | CP.PCM.DIS ---
Provider - Provider Date of Admission: 09/20/16 16:20 Attending physician: Stephen Vazquez DO Primary care physician: Stephen Vazquez DO Time Spent in preparation of Discharge (in minutes): 25 Hospital Course - Lab Results Lab Results: Most Recent Lab Values WBC 8.2 10^3/ul (4.5-11.0) 09/23/16 07:00 RBC 3.80 10^6/uL (3.5-6.1) 09/23/16 07:00 Hgb 11.7 gm/dL (14.0-18.0) L 09/23/16 07:00 Hct 35.8 % (42.0-52.0) L 09/23/16 07:00 MCV 94.2 fL (80.0-105.0) 09/23/16 07:00 MCH 30.8 pg (25.0-35.0) 09/23/16 07:00 MCHC 32.7 g/dl (31.0-37.0) 09/23/16 07:00 RDW 12.6 % (11.5-14.5) 09/23/16 07:00 Plt Count 235 10^3/uL (120.0-450.0) 09/23/16 07:00 MPV 11.1 fl (7.0-11.0) H 09/23/16 07:00 Gran % 55.7 % (50.0-68.0) 09/21/16 06:20 Lymph % (Auto) 30.4 % (22.0-35.0) 09/21/16 06:20 [place] % (Auto) 7.9 % (1.0-6.0) H 09/21/16 06:20 Eos % (Auto) 5.6 % (1.5-5.0) H 09/21/16 06:20 Baso % (Auto) 0.4 % (0.0-3.0) 09/21/16 06:20 Gran # 4.66 (1.4-6.5) 09/21/16 06:20 Lymph # 2.5 (1.2-3.4) 09/21/16 06:20 [place] # 0.7 (0.1-0.6) H 09/21/16 06:20 Eos # 0.5 (0.0-0.7) 09/21/16 06:20 Baso # 0.03 K/mm3 (0.0-2.0) 09/21/16 06:20 Sodium 140 mmol/L (132-148) 09/23/16 07:00 Potassium 4.6 mmol/L (3.6-5.0) 09/23/16 07:00 Chloride 102 mmol/L (95-110) 09/23/16 07:00 Carbon Dioxide 28 mmol/L (21-33) 09/23/16 07:00 Anion Gap 15 (10-20) 09/23/16 07:00 BUN 11 mg/dL (7-21) 09/23/16 07:00 Creatinine 0.9 mg/dL (0.5-1.4) 09/23/16 07:00 Est GFR ( Amer) > 60 09/23/16 07:00 Est GFR (Non-Af Amer) > 60 09/23/16 07:00 Random Glucose 82 mg/dL (70-110) 09/23/16 07:00 Calcium 9.1 mg/dL (8.4-10.5) 09/23/16 07:00 Total Bilirubin 0.6 mg/dL (0.2-1.3) 09/23/16 07:00 AST 32 U/L (15-59) 09/23/16 07:00 ALT 37 U/L (7-56) 09/23/16 07:00 Alkaline Phosphatase 86 U/L (38-133) 09/23/16 07:00 Total Protein 6.8 g/dL (5.8-8.3) 09/23/16 07:00 Albumin 3.9 g/dL (3.0-4.8) 09/23/16 07:00 Globulin 2.9 gm/dL 09/23/16 07:00 Albumin/Globulin Ratio 1.3 (1.1-1.8) 09/23/16 07:00 - Hospital Course Hospital Course: s/p basal cell ca removal on back then skin graft then went home and developed a hematoma and came to the er and here for hematoma surgery and now w/ a wound vac and to go home and see dr lopez on outpatient Discharge Exam - Head Exam Head Exam: NORMAL INSPECTION - Eye Exam Eye Exam: Normal appearance - ENT Exam ENT Exam: Mucous Membranes Moist - Neck Exam Neck exam: Normal Inspection - Respiratory Exam Respiratory Exam: Clear to PA & Lateral - Cardiovascular Exam Cardiovascular Exam: REGULAR RHYTHM - GI/Abdominal Exam GI & Abdominal Exam: Normal Bowel Sounds, Soft - Extremities Exam Additional comments: rt hip oa left foot ulcer dung boot - Back Exam Additional comments: wound vac - Neurological Exam Neurological exam: Alert, CN II-XII Intact, Oriented x3 - Psychiatric Exam Psychiatric exam: Normal Affect - Skin Skin Exam: Warm Additional comments: back wound vac Discharge Plan - Discharge Medications Prescriptions: traMADol [Ultram] 50 mg PO TID #20 tab - Follow Up Plan Condition: GOOD Disposition: HOME/ ROUTINE Instructions: Heart Failure (DC), Cellulitis (DC), Basal Cell Carcinoma (DC), Osteoarthritis (DC), Chronic Hypertension (DC), Skin Cancer Prevention (DC) Additional Instructions: Call the wound center on Sunday at 9:00 AM to follow up on wound vac. Referrals: Stephen Vazquez DO [Primary Care Provider] -
--- NOTE | 2016-10-11 11:56 | PCM.IRPREO ---
Pre Procedure Note - History Proposed Procedure: Excision of basal cell on the back Pre-Op Diagnosis: Patient is admitted for same day surgery for a split to the script and excision of basal cell. Preoperatively, the patient is healthy. He is a gentleman who had some trouble with his legs and that's why he is on the TCU. - Allergies Allergies: Allergies No Known Allergies Allergy (Verified 09/17/16 17:37) - Current Medications Current Medications: Home Medication List Medication Instructions Recorded Confirmed Type traMADol [Ultram] 50 mg PO TID #20 tab 09/23/16 Rx - Physical Exam Heart: WNL (Chest clear) - Specialist Directed Exam Integument: Other (Remarkable for large neglected basal cell on back) - Impression Impression: Patient is clear to go to the operating room - Date & Time Date: 09/22/16
== END 2016-09-23 10:50 | disposition home or self-care (01) | DRG 920 ==
LOC: TRCU 16:20
PROVIDERS: ADMIT Family Medicine; ATTEND Family Medicine
DX: L76.31 Postprocedural hematoma of skin and subcutaneous tissue following a dermatologic procedure (principal); L97.929 Non-pressure chronic ulcer of unspecified part of left lower leg with unspecified severity; L97.529 Non-pressure chronic ulcer of other part of left foot with unspecified severity; L89.92 Pressure ulcer of unspecified site, stage 2; L97.919 Non-pressure chronic ulcer of unspecified part of right lower leg with unspecified severity; I10 Essential (primary) hypertension; I87.2 Venous insufficiency (chronic) (peripheral); I87.8 Other specified disorders of veins; M19.90 Unspecified osteoarthritis, unspecified site; Z87.891 Personal history of nicotine dependence; L57.0 Actinic keratosis; Z85.828 Personal history of other malignant neoplasm of skin

== ENCOUNTER 2016-11-27 06:32 | Day surgery (SDC) | payer MEDICARE ==
--- NOTE | 2016-11-27 07:18 | CP.PCM.PN ---
Subjective - Date & Time of Evaluation Date of Evaluation: 11/27/16 Time of Evaluation: 07:10 - Subjective Subjective: 66 year old male patient PMH of basal cell carcinoma, venous stasis and HTN seen at bedside in [facility] for pre-operative evaluation for left leg non-healing ulcerations with Dr. Rahman. Patient seen resting comfortably, AAOx3 and NAD. Patient has been having increased pain to left leg and has exhausted conservative treatment. Patient now opts for surgical intervention. NPO status confirmed. Patient denies N/V/F/D/C/SOB/calf pain. No other pedal complaints at this time. Objective - Constitutional Appears: Well, Non-toxic, No Acute Distress - Extremities Exam Additional comments: Dressing to LLE appears clean, dry, and intact - Neurological Exam Neurological Exam: Alert, Awake, Oriented x3 - Psychiatric Exam Psychiatric exam: Normal Affect, Normal Mood Assessment and Plan - Assessment and Plan (Free Text) Assessment: 66 year old male PMHx of basal cell carcinoma, venous stasis and HTN seen in [facility] for left leg non-healing ulcerations Plan: Patient seen and evaluated in [facility] Patient NPO status confirmed All pre-op testing and clearance was in the chart Patient has exhausted all conservative treatment at this time and is opting for surgical intervention Patient was explained procedure and post-operative course All patient's questions were answered to satisfaction No guarantees were made Patient understands all risks, benefits, and complications of procedure Patient will follow up with Dr. Rahman
[2016-11-27] MEDS ORDERED: Propofol 10 mg/ml Inj (20 ML) ONE (07:23)
[2016-11-27] MEDS ORDERED: Lidocaine 2% Inj (20ml) ONE ×2 (07:27→07:47)
[2016-11-27] MEDS ORDERED: Sevoflurane - Inhalation Anesthetic Liq (250 ml) ONE (07:28)
[2016-11-27 07:40] VITALS: RESP 18; TEMP 97.5
[2016-11-27 07:41] VITALS: BMI 28.8
[2016-11-27] MEDS ORDERED: Gentamicin 80 mg/2mL Inj. ONE (07:46)
[2016-11-27] MEDS ORDERED: Naloxone 0.4 mg/ml Inj (Adult) ONE (08:46)
[2016-11-27] MEDS ORDERED: Lactated Ringer's 1,000 ML IV SCH (08:57)
--- NOTE | 2016-11-27 09:00 | PCM.SURG1 ---
Surgeon's Initial Post Op Note - Surgeon's Notes Surgeon: Dr. Rahman Chemical Economist: Dr. Tonny Farris PGY1 Type of Anesthesia: General LMA Anesthesia Administered By: Dr. Lea Pre-Operative Diagnosis: Left leg non-healing ulcerations Operative Findings: See operative report. Materials: none. Injectables: 7cc 2 % lidocaine plain Post-Operative Diagnosis: Same as above Operation Performed: Left leg wound debridement and application of Apligraf Specimen/Specimens Removed: None Estimated Blood Loss: EBL {In ML}: 1 Blood Products Given: N/A Drains Used: No Drains Post-Op Condition: Good Date of Surgery/Procedure: 11/27/16 Time of Surgery/Procedure: 08:40
[2016-11-27] MEDS ORDERED: Oxycodone/Acetaminophen 5/325 mg Tab PO PRN ×2 (09:03)
[2016-11-27] MEDS ORDERED: Oxycodone/Acetaminophen 5/325 mg Tab ONE (09:41)
[2016-11-27 11:21] VITALS: BP 136/64; PULSE 65; O2SAT 94
--- NOTE | 2016-11-27 15:53 | OP ---
PROCEDURE DATE: 11/27/2016 PREOPERATIVE DIAGNOSIS: Left leg nonhealing ulceration. POSTOPERATIVE DIAGNOSIS: Left leg nonhealing ulceration. NAME OF PROCEDURE: Left leg wound debridement with Misonix and application of Apligraf. SURGEON: Elva Rahman DPM REQUISITION APPROVER: Tonny Farris DPM, PGY-1. ANESTHESIA: General LMA with local 7 mL of 2% lidocaine plain. GLASS INSTALLER TECHNICIAN: Destiny Lea MD INDICATIONS: The patient is a 66-year-old male with the above diagnosis. The patient has exhausted all conservative treatments at this time and now require surgical intervention. The patient signed the consent after careful explanation of risks, benefits, complications, and alternatives for the surgical procedure. No guarantees were given nor implied. NPO status was confirmed prior to taking the patient back into the OR. PREPARATION: The patient was brought into the operating room and placed on the operating room table in a supine position. A time-out was performed for identification of the right patient and procedure. After induction of LMA sedation, local block consisting of 7 mL of 2% lidocaine plain was administered proximally to the left leg ulceration in a proximal V-type fashion. The left lower extremity was then prepped and draped in normal sterile manner and the procedure began. No tourniquet was used during the procedure. PROCEDURE: Attention was then directed to the medial aspect of the left leg at the lateral of the medial malleolus where superficial ulceration was present. Using Misonix SonicVac on settings 7, the ulcer was excisionally debrided of all fibrotic and nonviable tissue until fresh healthy bleeding granular tissue appeared. No purulent drainage was expressed from the ulcer. Next, Apligraf measuring 44 cm2 with cross heads using a #10 blade and then applied to the superficial ulceration on the medial aspect of the left leg and adaptic was applied on top of the Apligraf and dressed with an ABD pad and Kerlix. The left leg was then dressed with a Chambers compression dressing. POSTOPERATIVE CONDITION: The patient tolerated the anesthesia and the procedure well and was escorted to the recovery room with neurovascular status intact to the left lower extremity. The patient will follow up with Dr. Rahman [facility] this 11/29/2016. Tonny Farris DPM KAY
== END 2016-11-27 12:00 | disposition home or self-care (01) ==
LOC: SDS 06:32
PROVIDERS: ATTEND Podiatrist
DX: L97.829 Non-pressure chronic ulcer of other part of left lower leg with unspecified severity (principal); I87.2 Venous insufficiency (chronic) (peripheral); I10 Essential (primary) hypertension; Z85.828 Personal history of other malignant neoplasm of skin
CPT/HCPCS: 11042; 15271; J1100; J2175; J2310; J2405; J2704; J2765; J3010; J7120 ×2; Q4101

== ENCOUNTER 2016-12-15 07:32 | Emergency (ER) | payer MEDICAID, MEDICARE ==
[2016-12-15 07:33] VITALS: BMI 29.5
[2016-12-15 07:49] VITALS: PULSE 56; O2SAT 97
--- NOTE | 2016-12-15 08:27 | ED PDOC ---
Arrival/HPI - General Chief Complaint: Dizziness/Lightheaded Time Seen by Provider: 12/15/16 07:49 Historian: Patient - History of Present Illness Narrative History of Present Illness (Text): 12/15/16 08:21 A 66 year old male, whose past medical history includes hypertension, varicose veins, and basal cell CA, presents to the emergency department after experiencing dizziness and nausea this morning. The patient notes that he was seen 3 days ago for a worsening ulcer wound on the left ankle at the wound care center by Dr. Rahman. He states that he recently started a new medication. The patient denies fevers, chills, headache, chest pain, shortness of breath, dyspnea on exertion, cough, abdominal pain, vomiting, diarrhea, back pain, neck pain, urinary/bowel changes, or any other complaint. PMD: Dr. Saniya Vazquez Steel Detailer: Dr. Rahman Time/Duration: Other (This morning) Symptom Onset: Sudden Symptom Course: Unchanged Activities at Onset: Rest, Light Context: Home Past Medical History - Infectious Disease Hx of Infectious Diseases: None - Tetanus Immunization Tetanus Immunization: Unknown - Cardiac Hx Cardiac Disorders: Yes Hx Hypertension: Yes - Pulmonary Hx Respiratory Disorders: No - Neurological Hx Neurological Disorder: No - HEENT Hx HEENT Disorder: No - Renal Hx Renal Disorder: No - Endocrine/Metabolic Hx Endocrine Disorders: No - Hematological/Oncological Hx Blood Transfusions: No - Integumentary Hx Dermatological Disorder: Yes Hx Basal Cell Carcinoma: Yes (on his back) Other/Comment: actinic keratosis - Musculoskeletal/Rheumatological Hx Musculoskeletal Disorders: Yes Hx Arthritis: Yes - Gastrointestinal Hx Gastrointestinal Disorders: No - Genitourinary/Gynecological Hx Genitourinary Disorders: No Hx Reproductive Disorders: No - Psychiatric Hx Psychophysiologic Disorder: No Hx Emotional Abuse: No Hx Physical Abuse: No Hx Substance Use: No - Surgical History Other/Comment: Skin graft on back - Anesthesia Hx Anesthesia Reactions: No Hx Malignant Hyperthermia: No - Suicidal Assessment Feels Threatened In Home Enviroment: No Family/Social History - Physician Review Nursing Documentation Reviewed: Yes Family/Social History: No Known Family HX Smoking Status: Former Smoker Hx Alcohol Use: No Hx Substance Use: No Allergies/Home Meds Allergies/Adverse Reactions: Allergies No Known Allergies Allergy (Verified 12/15/16 07:42) Home Medications: Home Meds Medication Instructions Recorded Confirmed Acetaminophen [Pain Relief] 650 mg PO Q4 PRN 09/06/16 12/15/16 Aspirin [Ecotrin] 81 mg PO DAILY 11/23/16 12/15/16 traMADol [Ultram] 50 mg PO QID PRN 11/23/16 12/15/16 Sulfamethoxazole/Trimethoprim 1 tab PO BID 12/15/16 12/15/16 [Bactrim DS Tab] Torsemide [Demadex] 20 mg PO DAILY 12/15/16 12/15/16 Review of Systems - Physician Review All systems were reviewed & negative as marked: Yes - Review of Systems Constitutional: absent: Fevers, Night Sweats ENT: absent: Sore Throat Respiratory: absent: SOB Cardiovascular: absent: Chest Pain Gastrointestinal: Nausea. absent: Abdominal Pain, Diarrhea, Vomiting Genitourinary Male: absent: Urinary Output Changes Musculoskeletal: absent: Back Pain, Neck Pain Skin: Other (Ulcer on left ankle.) Neurological: Dizziness. absent: Headache Physical Exam Vital Signs Reviewed: Yes Vital Signs Temp Pulse Resp BP Pulse Ox 12/15/16 08:01 97.5 F L 56 L 18 102/57 L 97 12/15/16 07:48 97.7 F 56 L 16 128/56 L 97 Temperature: Afebrile Blood Pressure: Hypotensive Pulse: Bradycardic Respiratory Rate: Normal Appearance: Positive for: Well-Appearing, Non-Toxic, Comfortable Pain Distress: None Mental Status: Positive for: Alert and Oriented X 3 - Systems Exam Head: Present: Atraumatic, Normocephalic Pupils: Present: PERRL Extroacular Muscles: Present: EOMI Conjunctiva: Present: Normal Mouth: Present: Moist Mucous Membranes Neck: Present: Normal Range of Motion Respiratory/Chest: Present: Clear to Auscultation, Good Air Exchange. No: Respiratory Distress, Accessory Muscle Use Cardiovascular: Present: Regular Rate and Rhythm, Normal S1, S2. No: Murmurs Abdomen: Present: Normal Bowel Sounds. No: Tenderness, Distention, Peritoneal Signs Back: Present: Normal Inspection Upper Extremity: Present: Normal Inspection. No: Cyanosis, Edema Lower Extremity: Present: Other (Medial left ankle 5x3in. ulcer. Mild errythema , mild warmth. ) Neurological: Present: GCS=15, CN II-XII Intact, Speech Normal Skin: Present: Warm, Dry, Normal Color. No: Rashes Psychiatric: Present: Alert, Oriented x 3, Normal Insight, Normal Concentration Medical Decision Making ED Course and Treatment: 12/15/16 08:31 Impression: A 66 year old male presents to the emergency department for experiencing dizziness and nausea this morning. Differential Diagnosis included but are not limited to: Nausea and Dizziness Secondary to Infection vs. Medication Reaction Plan: -- EKG -- Reglan -- Blood Culture -- Labs -- Reassess and disposition Prior Visits: Notes and results from previous visits were reviewed. Patient was last seen in the emergency department on 09/28/2016. The patient was treated for bleeding from the site of his basal cell carcinoma and skin graft replacement on his mid back. Patient was hospitalized. Progress Notes: EKG: Ordered, reviewed, and independently interpreted the EKG. Rate : 56 BPM Rhythm : Sinus Bradycardia Interpretation : No other changes. 12/15/16 08:20: Case discussed with Dr. Jauregui (Steel Detailer), will come in and evaluate the patient. 12/15/16 09:26: Podiatric quality engineer medical device evaluated the patient. States that his wound is stable, it is not currently worsened, will continue treatment on Bactrim. Will follow up with Dr. Rahman and Dr. Khan as scheduled. Resident re- wrapped patient's wound. Patient is asymptomatic. - Lab Interpretations Lab Results: 12/15/16 08:00 12/15/16 08:00 Lab Results 12/15/16 08:00: Sodium 139, Chloride 103, Potassium 4.1, Carbon Dioxide 24, Anion Gap 16, BUN 17, Creatinine 1.1, Est GFR ( Amer) > 60, Est GFR (Non- Af Amer) > 60, Random Glucose 93, Calcium 9.3, Magnesium 2.1, Total Bilirubin 0.4, AST 28, ALT 26, Alkaline Phosphatase 80, Total Protein 7.1, Albumin 4.1, Globulin 3.0, Albumin/Globulin Ratio 1.4 12/15/16 08:00: pO2 71 H, VBG pH 7.39, VBG pCO2 46.0, VBG HCO3 27.8, VBG Total CO2 29.2 H, VBG O2 Sat (Calc) 96.9 H, VBG Base Excess 2.2 H, VBG Potassium 4.1, Sodium 136.0, Chloride 103.0, Glucose 97, Lactate 1.0, FiO2 21.0, Venous Blood Potassium 4.1 12/15/16 08:00: WBC 7.4 D, RBC 4.50, Hgb 13.8 L, Hct 40.2 L, MCV 89.3, MCH 30.7 , MCHC 34.3, RDW 12.5, Plt Count 209, MPV 10.4, Gran % 52.6, Lymph % (Auto) 35.2 H, Aiken % (Auto) 8.0 H, Eos % (Auto) 3.8, Baso % (Auto) 0.4, Gran # 3.90, Lymph # 2.6, Aiken # 0.6, Eos # 0.3, Baso # 0.03 I have reviewed the lab results: Yes - EKG Interpretation Interpreted by ED Physician: Yes Type: 12 lead EKG - Medication Orders Current Medication Orders: Discontinued Medications Metoclopramide HCl (Reglan) 10 mg IVP STAT STA Stop: 12/15/16 08:03 Last Admin: 12/15/16 09:47 Dose: 10 mg IVP Administration Document 12/15/16 09:47 MR (Rec: 12/15/16 09:47 MR [id number]) Charges for Administration # of IVP Administrations 1 - Scribe Statement The provider has reviewed the documentation as recorded by the Dakotaibjessica Heaton Provider Scribe Attestation: All medical record entries made by the Scribe were at my direction and personally dictated by me. I have reviewed the chart and agree that the record accurately reflects my personal performance of the history, physical exam, medical decision making, and the department course for this patient. I have also personally directed, reviewed, and agree with the discharge instructions and disposition. Disposition/Present on Arrival - Present on Arrival Any Indicators Present on Arrival: No History of DVT/PE: No History of Uncontrolled Diabetes: No Urinary Catheter: No History of Decub. Ulcer: No History Surgical Site Infection Following: None - Disposition Have Diagnosis and Disposition been Completed?: Yes Diagnosis: Dizziness, Nausea Disposition: HOME/ ROUTINE Disposition Time: 09:45 Patient Plan: Discharge Patient Problems: Current Active Problems Problem Status Onset Dizziness Acute Nausea Acute Condition: IMPROVED Discharge Instructions (ExitCare): Acute Nausea and Vomiting (ED), Dizziness ( ED) Additional Instructions: Thi, thank you for letting us take care of you today. Your provider was Dr. Rios. You were treated for Nausea, Dizziness. The emergency medical care you received today was directed at your acute symptoms. If you were prescribed any medication, please fill it and take as directed. It may take several days for your symptoms to resolve. Return to the Emergency Department if your symptoms worsen, do not improve, or if you have any other problems. MAKE SURE TO FOLLOW UP WITH DR. DEL CID FOR YOUR IV ANTIBIOTIC TREATMENT. Please contact your doctor or call one of the physicians/clinics you have been referred to that are listed on the Patient Visit Information form that is included in your discharge packet. Bring any paperwork you were given at discharge with you along with any medications you are taking to your follow up visit. Our treatment cannot replace ongoing medical care by a primary care provider (PCP) outside of the emergency department. Thank you for allowing the [facility] team to be part of your care today. If you had an X-Ray or CT scan: A Radiologist will review the ED reading if any change in treatment is needed we will contact you. If you had a blood, urine, or wound culture: It will take several days for the results, if any change in treatment is needed we will contact you. If you had an STI test: It will take 48 hours for the results. Please call after 1 week if you have not heard back. Prescriptions: Ondansetron ODT [Zofran ODT] 4 mg PO Q6 #14 odt Referrals: Stephen Vazquez DO [Primary Care Provider] - Follow up with primary Forms: [employer] (Sami)
[2016-12-15 08:34] LABS: BASO # 0.03 K/mm3 (0.0-2.0); BASO % 0.4 % (0.0-3.0); EOS # 0.3 (0.0-0.7); EOS % 3.8 % (1.5-5.0); GRAN # 3.9 (1.4-6.5); GRAN % 52.6 % (50.0-68.0); HEMATOCRIT 40.2 % (42.0-52.0); LYMPH # 2.6 (1.2-3.4); LYMPH % 35.2 % (22.0-35.0); MEAN CELL VOLUME 89.3 fl (80.0-105.0); MEAN CORPUSCULAR HEMOGLOBIN 30.7 pg (25.0-35.0); MEAN CORPUSCULAR HGB CONC 34.3 g/dl (31.0-37.0); MEAN PLATELET VOLUME 10.4 fl (7.0-11.0); MONO # 0.6 (0.1-0.6); RED CELL DISTRIBUTION WIDTH 12.5 % (11.5-14.5); VENOUS BLOOD GAS BASE EXCESS 2.2 mmol/L (0.0-2.0); VENOUS BLOOD PH 7.39 (7.32-7.43); WHITE BLOOD COUNT 7.4 10^3/ul (4.5-11.0)
[2016-12-15 08:48] LABS: ALB/GLOB RATIO 1.4 (1.1-1.8); ALKALINE PHOSPHATASE 80 U/L (38-126); ALT/SGPT 26 U/L (7-56); AST/SGOT 28 U/L (17-59); BILIRUBIN,TOTAL 0.4 mg/dL (0.2-1.3); BLOOD UREA NITROGEN 17 mg/dL (7-21); CALCIUM 9.3 mg/dL (8.4-10.5); CARBON DIOXIDE 24 mmol/L (21-33); CHLORIDE 103 mmol/L (98-107); GFR AFRICAN-AMERICAN > 60; GLUCOSE,RANDOM 93 mg/dL (70-110); MAGNESIUM 2.1 mg/dL (1.7-2.2); POTASSIUM 4.1 mmol/L (3.6-5.0); SODIUM 139 mmol/L (132-148); TOTAL PROTEIN 7.1 g/dL (5.8-8.3)
[2016-12-15 09:48] VITALS: BP 102/57; RESP 18; TEMP 97.5
--- NOTE | 2016-12-16 08:20 | CARD ---
APPROVED REPORT EKG Measurement Heart [id number] <Conclusion> Sinus bradycardia Otherwise normal ECG No change
== END 2016-12-15 09:55 | disposition home or self-care (01) ==
LOC: ED 07:32
DX: R42 Dizziness and giddiness (principal); R11.0 Nausea; I10 Essential (primary) hypertension
CPT/HCPCS: 80053; 82803; 83735; 85025; 87040; 93005; 96374; 99285; J2765

== ENCOUNTER 2016-12-31 11:48 | Emergency (ER) | payer MEDICARE ==
[2016-12-31 11:54] VITALS: BMI 27.8
[2016-12-31 11:55] VITALS: RESP 18; TEMP 98
[2016-12-31 12:41] VITALS: BP 127/65; PULSE 58; O2SAT 96
--- NOTE | 2016-12-31 12:54 | RAD ---
PROCEDURE: Left Knee Radiographs. HISTORY: Pain. COMPARISON: Correlation made with concurrent radiographs of the left tibia and fibula 03/25/2015 FINDINGS: BONES: No evidence of acute displaced fracture nor dislocation. The osseous structures appear intact. No cortical destructive changes. JOINTS: Joint spaces are relatively preserved however there are calcifications seen within the medial joint space and possibly subtle early calcification lateral joint space consistent with chondrocalcinosis. Rule out CPPD. Small osteophyte seen arising from the lateral tibial plateau. Slight spurring tibial spines. There is also a small to medium-sized osteophyte arising from the posterior superior margin of the patella. JOINT EFFUSION: Trace suprapatellar joint effusion suspected OTHER FINDINGS: None. IMPRESSION: No acute fractures. Mild DJD as described.
--- NOTE | 2016-12-31 13:05 | ED PDOC ---
Arrival/HPI - General Chief Complaint: Trauma Time Seen by Provider: 12/31/16 11:57 Historian: Patient - History of Present Illness Narrative History of Present Illness (Text): 12/31/16 13:00 A 66 year old male presents to the emergency department complaining of mechanical fall while in cafeteria here in the hospital, causing injury to left knee. Patient reports prior to fall, he had no dizziness, headache, or chest pain. No other injuries have been reported, and patient denies of LOC, head trauma, or any other complaints at this time. No PMD Time/Duration: Prior to Arrival Symptom Onset: Sudden Symptom Course: Unchanged Past Medical History - Provider Review Nursing Documentation Reviewed: Yes - Infectious Disease Hx of Infectious Diseases: None - Tetanus Immunization Tetanus Immunization: Unknown - Cardiac Hx Cardiac Disorders: Yes Hx Hypertension: Yes - Pulmonary Hx Respiratory Disorders: No - Neurological Hx Neurological Disorder: No - HEENT Hx HEENT Disorder: No - Renal Hx Renal Disorder: No - Endocrine/Metabolic Hx Endocrine Disorders: No - Hematological/Oncological Hx Blood Transfusions: No - Integumentary Hx Dermatological Disorder: Yes Hx Basal Cell Carcinoma: Yes (on his back) Other/Comment: actinic keratosis - Musculoskeletal/Rheumatological Hx Musculoskeletal Disorders: Yes Hx Arthritis: Yes - Gastrointestinal Hx Gastrointestinal Disorders: No - Genitourinary/Gynecological Hx Genitourinary Disorders: No Hx Reproductive Disorders: No - Psychiatric Hx Psychophysiologic Disorder: No Hx Emotional Abuse: No Hx Physical Abuse: No Hx Substance Use: No - Surgical History Other/Comment: Skin graft on back - Anesthesia Hx Anesthesia Reactions: No Hx Malignant Hyperthermia: No - Suicidal Assessment Feels Threatened In Home Enviroment: No Family/Social History - Physician Review Nursing Documentation Reviewed: Yes Family/Social History: No Known Family HX Smoking Status: Former Smoker Hx Alcohol Use: No Hx Substance Use: No Allergies/Home Meds Allergies/Adverse Reactions: Allergies No Known Allergies Allergy (Verified 12/31/16 11:54) Home Medications: Home Meds Medication Instructions Recorded Confirmed Acetaminophen [Pain Relief] 650 mg PO Q4 PRN 09/06/16 12/15/16 Aspirin [Ecotrin] 81 mg PO DAILY 11/23/16 12/15/16 traMADol [Ultram] 50 mg PO QID PRN 11/23/16 12/15/16 Ascorbic Acid [Vitamin C] 500 mg PO DAILY 12/15/16 12/15/16 Cod Liver Oil [Cod Liver Oil] 1 cap PO DAILY 12/15/16 12/15/16 Sulfamethoxazole/Trimethoprim 1 tab PO BID 12/15/16 12/15/16 [Bactrim DS Tab] Torsemide [Demadex] 20 mg PO DAILY 12/15/16 12/15/16 Vitamin B Complex [Balance B-50] 1 tab PO 2XW 12/15/16 12/15/16 Vitamin E Acetate [Vitamin E] 1,000 unit PO DAILY 12/15/16 12/15/16 Review of Systems - Physician Review All systems were reviewed & negative as marked: Yes - Review of Systems Cardiovascular: absent: Chest Pain Musculoskeletal: Other (left knee injury s/p mechanical fall) Neurological: absent: Headache, Dizziness Physical Exam Vital Signs Reviewed: Yes Vital Signs Temp Pulse Resp BP Pulse Ox 12/31/16 12:40 58 L 18 127/65 96 12/31/16 11:55 98.0 F 56 L 18 129/61 95 Temperature: Afebrile Blood Pressure: Normal Pulse: Regular Respiratory Rate: Normal Appearance: Positive for: Well-Appearing Pain Distress: None Mental Status: Positive for: Alert and Oriented X 3 - Systems Exam Head: Present: Atraumatic, Normocephalic Pupils: Present: PERRL Extroacular Muscles: Present: EOMI Conjunctiva: Present: Normal Mouth: Present: Moist Mucous Membranes Neck: Present: Normal Range of Motion Respiratory/Chest: Present: Clear to Auscultation, Good Air Exchange. No: Respiratory Distress, Accessory Muscle Use Cardiovascular: Present: Regular Rate and Rhythm, Normal S1, S2. No: Murmurs Abdomen: Present: Normal Bowel Sounds. No: Tenderness, Distention, Peritoneal Signs Back: Present: Normal Inspection Upper Extremity: Present: Normal Inspection. No: Cyanosis, Edema Lower Extremity: Present: Normal Inspection, NORMAL PULSES, Normal ROM (left knee), Neurovascularly Intact, Capillary Refill < 2 s, Other (ecchymosis to medial aspect of left knee, no laxity of the L knee. ). No: Edema, Tenderness, Swelling, Deformity, Temperature Abnormalties Neurological: Present: GCS=15, CN II-XII Intact, Speech Normal Skin: Present: Warm, Dry, Normal Color. No: Rashes Psychiatric: Present: Alert, Oriented x 3, Normal Insight, Normal Concentration Medical Decision Making ED Course and Treatment: 12/31/16 13:05 Impression: 66 year old male with left knee injury s/p mechanical fall. Physical exam shows left knee has ecchymosis to medial aspect; normal ROM. Plan: -- Tylenol -- Reassess and disposition Prior Visits: Notes and results from previous visits were reviewed. Patient was last seen in the emergency department on 12/15/2016 for dizziness and nausea. Patient was discharged home. Progress Notes: XR L knee: no fracture, no dislocation, as read by PA Patient advised that official radiology read of XR is still pending and will call the patient if there is any discrepancy within 24 hours. XR results d/w the patient in great detail. Diagnosis of knee contusion d/w the patient. Advised RICE to the L knee. Instructed to follow up with primary care physician in 1-2 days without fail. Return to the emergency room at any time for any new or worsening symptoms. Patient states she fully agrees with and understands discharge instructions. States that she agrees with the plan and disposition. Verbalized and repeated discharge instructions and plan. I have given the patient opportunity to ask any additional questions. - RAD Interpretation Radiology Orders: 12/31/16 12:03 KNEE LEFT 2 VIEWS (AP & LAT) [RAD] Stat - Medication Orders Current Medication Orders: Discontinued Medications Acetaminophen (Tylenol 325mg Tab) 975 mg PO STAT STA Stop: 12/31/16 12:04 Last Admin: 12/31/16 12:30 Dose: 975 mg MAR Pain/Vitals Document 12/31/16 12:30 GMD (Rec: 12/31/16 12:31 [place] [facility] [id number] Pain Reassessment Is This A Pain ReAssessment? No Sleep Is patient sleeping during reassessment? No Presence of Pain Presence of Pain Yes - PA / WILDLIFE BIOLOGIST / Resident Statement MD/DO has reviewed & agrees with the documentation as recorded. - Scribe Statement The provider has reviewed the documentation as recorded by the Jake Lees Provider Scribe Attestation: All medical record entries made by the Scribjessica were at my direction and personally dictated by me. I have reviewed the chart and agree that the record accurately reflects my personal performance of the history, physical exam, medical decision making, and the department course for this patient. I have also personally directed, reviewed, and agree with the discharge instructions and disposition. Disposition/Present on Arrival - Present on Arrival Any Indicators Present on Arrival: No History of DVT/PE: No History of Uncontrolled Diabetes: No Urinary Catheter: No History of Decub. Ulcer: No History Surgical Site Infection Following: None - Disposition Have Diagnosis and Disposition been Completed?: Yes Diagnosis: Contusion of knee, left Disposition: HOME/ ROUTINE Disposition Time: 13:00 Patient Plan: Discharge Condition: STABLE Discharge Instructions (ExitCare): Contusion in Adults (ED), Knee Pain (ED) Print Language: MONGOLIAN Additional Instructions: Thank you for letting us take care of you today. You were treated for L knee contusion. The emergency medical care you received today was directed at your acute symptoms. Ice and elevate your knee, take tylenol for pain. It may take several days for your symptoms to resolve. Return to the Emergency Department if your symptoms worsen, do not improve, or if you have any other problems. Please contact your doctor in 2 days for re-evaluation and follow up. Bring any paperwork you were given at discharge with you along with any medications you are taking to your follow up visit. Our treatment cannot replace ongoing medical care by a primary care provider (PCP) outside of the emergency department. Thank you for allowing the [facility] team to be part of your care today. If you had an X-Ray: A Radiologist will review the ED reading if any change in treatment is needed we will contact you. Forms: [employer] (Nepali)
== END 2016-12-31 13:26 | disposition home or self-care (01) ==
LOC: ED 11:48
DX: S80.02XA Contusion of left knee, initial encounter (principal); W19.XXXA Unspecified fall, initial encounter; Y92.233 Cafeteria of hospital as the place of occurrence of the external cause